=== PATIENT | female | born 1970 | race Caucasian/White ===

== ENCOUNTER 2024-10-18 12:55 | Outpatient (CLI) | payer OTHER, SELFPAY ==
--- NOTE | ~2024-10-18 | MM_ITS ---
EXAMINATION: MM screening bhakti BI w deborah HISTORY: Screening TECHNIQUE: Craniocaudal and mediolateral oblique 3-D tomosynthesis images were obtained and synthetic 2-D images were generated. CAD analysis was submitted and interpreted. COMPARISON: 02/21/2016 BREAST PARENCHYMAL COMPOSITION: Dense: The breasts are heterogeneously dense, which may obscure small masses FINDINGS: There is no evidence of suspicious mass, calcification, or architectural distortion to sugg est malignancy in either breast. There has been no suspicious interval change. IMPRESSION: 1. No mammographic evidence of malignancy. 2. Recommend routine screening mammography in one year. BI-RADS Category 1: Negative Reviewed, dictated and finalized at location B. ANTINE INSPECTOR
--- OUTSIDE RECORDS SUMMARY | 2024-10-18 15:25 | XMS_ITS | Clinical Summary ---
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 Gender Identity Not on file Sexual Orientation Not on file Plan of Treatment Health Maintenance Due Date Last Done Comments Cervical Cancer Screening Pa p Smear (Age 30 to 64) Every 3 Years 1968 Colorectal Cancer Screening Colonoscopy (10 Years) 1968 Annual Physical 12/08/1971 Hepatitis C 1986 DTaP, Tdap and Td Vaccines ( 1 - Tdap) 12/08/1987 Hepatitis B Vaccines (1 of 3 - 19+ 3-dose series) 12/08/1987 Cervical Cancer Screening Pa p with HPV Testing (Age 30 to 64) Every 5 Years 1998 Cervical Cancer Screening with HPV 1998 Mammogram Screening 2008 Zoster Vaccines (1 of 2) 2018 COVID-19 Vaccine (2023-2 5 season) 2024 Influenza Adult (#1) 2024 Meningococcal B Vaccine Aged Out No l onger eligible based on patient's age to complete this topic Meningococcal Vaccine Aged Out No hayley oleksandr eligible based on patient's age to complete this topic Pneumococcal Vaccine: Pediat rics (0 to 5 Years) and At-Risk Patients (6 to 64 Years) Aged Out No longer eligible b ased on patient's age to complete this topic RSV Immunizations Under 20 Months Aged Out No longer eligible based on patient's age to complete this topic
--- OUTSIDE RECORDS SUMMARY | 2024-10-18 15:25 | XMS_ITS | Referral Summary ---
Author Organization [facility] Address [address] [place] [address] Care Team Providers Care Early Morning Babysitter Name Role Phone Salvador Hector MD Primary Care Provider + Christian Miranda MD Unavailable Encounters Date Type Department Care Team Description 10/12/2024 Telephone [facility] Medical Group Primary Care at [facility] [address] [facility] [address] [place] [phone] Salvador Hector MD from Last 3 Months Allergies Active Allergy Reactions Criticality Noted Date Comments Adhesive Tape-Silicones Other (See comments),Rash Medium 04/23/2017 RED/ BLISTERS Hydrocodone-Acetaminophe n Photosensitivity,Unk nown Low 08/09/2011 hallucinations Penicillins Hives,Itching,Rash Medium 05/17/2009 Reaction: Hives, Sulfa (Sulfonamide Antibiotics) Hives,Rash,Itching Reaction: Hives, Skin Rash, , Reaction: Itching, Sulfasalazine Nausea And Vomiting,Rash,Itchin g,Swelling Medium 01/01/2010 Trazodone Other (See comments) High 02/19/2017 Medications ibuprofen (ADVIL,MOTRIN) 800 mg tablet Take 800 mg by mouth every 8 (eight) hours Active ergocalciferol (VITAMIN D) 50,000 unit capsule Take 1 capsule (50,000 Units total) by mouth once a week 12 capsule 06/18/2022 Active nortriptyline (PAMELOR) 25 mg capsuleIndicati ons:Small fiber neuropathy (CMS/HCC),Fibro myalgia TAKE 3 CAPSULES BY MOUTH NIGHTLY. 270 capsule 3 12/16/2023 Active rosuvastatin (CRESTOR) 20 mg tablet TAKE 1 TABLET BY MOUTH EVERY DAY 90 tablet 3 03/17/2024 Active clonazePAM (KlonoPIN) 0.5 mg tablet Take 1 tablet (0.5 mg total) by mouth 2 (two) times a day as needed for anxiety 60 tablet 5 05/07/2024 Active escitalopram (LEXAPRO) 20 mg tablet TAKE 1 TABLET BY MOUTH EVERY DAY 90 tablet 3 05/10/2024 Active Active Problems Problem Noted Date Diagnosed Date Anxiety 06/17/2022 Colon cancer screening 05/04/2020 Overview (05/04/2020): Added automatically from request for surgery [id number] Screen for colon cancer 05/03/2020 Overview (05/03/2020): Added automatically from request for surgery [id number] Pustulosis palmaris et plantaris 06/15/2018 Small fiber neuropathy 11/04/2016 Overview (01/24/2017): Small fiber neuropathy Insomnia 11/04/2016 Overview (01/24/2017): Insomnia Hypotension, postural 11/04/2016 Overview (01/24/2017): Orthostatic hypotension Hyperlipidemia 11/04/2016 Overview (01/24/2017): Hyperlipidemia CFS (chronic fatigue syndrome) 11/04/2016 Overview (01/24/2017): CFS - Chronic fatigue syndrome Fibromyalgia 11/04/2016 Overview (01/24/2017): Fibromyalgia Fibrositis 04/11/2015 Overview (12/05/2016): Fibromyalgia Family history of coronary artery disease 2014 Overview (12/05/2016): Family history of coronary artery disease in father Chronic fatigue syndrome 04/11/2015 Overview (12/06/2016): Chronic fatigue Immunizations Immunization Administration Dates Next Due COVID-19 MRNA (MODERNA) .5 M L (50 MCG) VACCINE (12 YEARS AND UP) 05/30/2023 DTP 12/29/1970, 9,03/01/1969,01/18 Influenza, Quadrivalent, Spl it, Intramuscular 06/17/2022,06/09/2019 Influenza, Quadrivalent, Spl it, Preservative Free, Intradermal 05/24/2016,06/14/2015 Influenza, Quadrivalent, Spl it, Preservative Free, Intramuscular 05/30/2023,06/17/2022,05/03/2020 Influenza, Trivalent, High D ose, Split, Preservative Free, Intramuscular 06/01/2014 Influenza, Trivalent, Preser vative Free, Intramuscular 07/24/2021 Influenza, Trivalent, Split, Preservative Free, Intradermal 06/01/2014 Influenza, Unspecified 05/05/2018,09/29/2017,09/2016 MMR 05/26/1992 Measles 11/14/1978,11/25/1969 Mumps 02/16/1971 OPV 04/22/1979, 4,12/29/1970,08/02,05/07/1969 Pneumococcal Conjugate Pcv20 06/27/2023 Pneumococcal Polysaccharide PPV23 07/02/2008 Rubella 02/17/1970 Td, adsorbed 05/17/1977 Tdap 12/30/2019,07/04/2012 Social History Tobacco Use Types Packs/Day Years Used Date Smoking Tobacco: Some Days Smokeless Tobacco: Never Tobacco Cessation:Ready to Q uit: Not Asked; Counseling Given: Not Answered Comments:3-5 cigarettes a day Alcohol Use Standard Drinks/Week Comments Yes 0 (1 standard drink = 0.6 oz pur e alcohol) rarely AUDIT-C Answer Date Recorded Q1: How often do you have a drink containing alc ohol? 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 Gender Identity Female 05/08/2021 10:15 AM CDT Sexual Orientation Straight 06/19/2019 9: 52 AM CDT Occupation Industry Job Start Date Job End Date disabled Not on file Not on file Not on file Last Filed Vital Signs Vital Sign Reading Time Taken Comments Blood Pressure 100/60 06/27/2023 4:04 PM CDT Pulse 89 06/27/2023 4:04 PM CDT Temperature 36.9 C (98.5 F) 06/14/2020 12:04 PM CDT Respiratory Rate 16 06/17/2022 11:30 AM CDT Oxygen Saturation 98% 06/27/2023 4:04 PM CDT Inhaled Oxygen Concentration - - Weight 58.1 kg (128 lb) 06/27/2023 4:04 PM CDT Height 167.6 cm (5' 6 ) 06/27/2023 4:04 PM CDT Body Mass Index 20.66 06/27/2023 4:04 PM CDT Plan of Treatment Scheduled Procedures Name Priority Associated Diagnoses Date/Ti me COLONOSCOPY Colon cancer screening Procedures Procedure Name Priority Date/Time Associated Diagnosis Comments SCREENING MAMMOGRAM BILATERAL W TEJINDER Schedule Routine, Read Routine (OP Routine) 11/02/2020 1:31 PM STAGE ELECTRICIAN Screening for breast cancer COLONOSCOPY 06/14/2020 12:17 PM CDT IMAGING PAP AND HPV MRNA E6/E7 Routine 11/04/2016 1:39 PM STAGE ELECTRICIAN from Last 3 Months or Most Recently Relevant to Health Maintenance Results * Screening Mammogram Bilateral W Tejinder (11/02/2020 1:31 PM STAGE ELECTRICIAN) Anatomical Region Laterality Modality Breast Bilateral Mammography Narrative 11/03/2020 11:14 AM STAGE ELECTRICIAN Mammogram Technique: Bilateral Digital Breast Tomosynthesis, Bilateral C-view 2D Screening mammogram. Views obtained: bilateral craniocaudal and bilateral mediolateral oblique. Computer Aided Detection was performed. Mammogram Findings: The present examination has been compared to prior imaging studies performed at [facility]. [facility] on 12/28/2010, 04/02/2012 and 04/07/2013. The breasts are heterogeneously dense, which may obscure small masses. There is no suspicious abnormality in either breast. Impression: There is no mammographic evidence of malignancy. Annual screening mammography is recommended. OVERALL FINAL ASSESSMENT: BI-RADS CATEGORY 1: Negative. Procedure Note Flor Yousif MD - 11/03/2020 Mammogram Technique: Bilateral Digital Breast Tomosynthesis, Bilateral C-view 2D Screening mammogram. Views obtained: bilateral craniocaudal and bilateral mediolateral oblique. Computer Aided Detection was performed. Mammogram Findings: The present examination has been compared to prior imaging studies performed at [facility]. [facility] on 12/28/2010, 04/02/2012 and 04/07/2013. The breasts are heterogeneously dense, which may obscure small masses. There is no suspicious abnormality in either breast. Impression: There is no mammographic evidence of malignancy. Annual screening mammography is recommended. OVERALL FINAL ASSESSMENT: BI-RADS CATEGORY 1: Negative. us Salvador Hector MD IMG MAMMO PROCEDURES Fin al Result * COLONOSCOPY (06/14/2020 12:17 PM CDT) Anatomical Region Laterality Modality Other Narrative Procedure Note Paxton Mcdonald MD - 06/14/2020 12:17 PM CDT ENDOSCOPY LAB Patient Name: Comfort Thapa Procedure Date: 06/14/2020 12:17PM Admit Type: Outpatient Room: [facility] 2 Date of : 1970 Instrument Name: [id number] Gender: Female Note Status: Finalized Procedure: Colonoscopy Indications: Colon cancer screening in patient at increased risk: Colorectal cancer in brother at age 42. Paternal Unclehad colon cancer . Cousin with colon cancer under age 50 . This is the patient's first colonoscopy. Providers: Paxton Mcdonald M.D. Referring MD: Salvador Hector M.D. Medicines: Propofol per Anesthesia Complications: No immediate complications. Estimated Blood Loss: Estimated blood loss: none. Procedure: Pre-Anesthesia Assessment: - The risks and benefits of the procedure and thesedation options and risks were discussed with the patient. All questions were answered and informed consent wasobtained. The benefits, risks and alternatives of the procedureand sedation were discussed and informed consent wasobtained. All questions were answered. Please refer to the signed informed consent document in the medical record. Thescope was passed under direct vision. The Colonoscope was introduced through the anus and advanced to the the terminal ileum, with identification of the appendiceal orifice and IC valve. The colonoscopy was somewhat difficult due to a redundant colon. Successfulcompletion of the procedure was aided by applying abdominalpressure. The patient tolerated the procedure well. The qualityof the bowel preparation was excellent. The quality of the bowel preparation was evaluated using the BBPS ([place] Bowel Preparation Scale) with scores of: Right Colon =3 (entire mucosa seen well with no residual staining,small fragments of stool or opaque liquid), Transverse Colon= 3 (entire mucosa seen well with no residual staining,small fragments of stool or opaque liquid) and Left Colon = 3 (entire mucosa seen well with no residual staining,small fragments of stool or opaque liquid). The total BBPSscore equals 9. The quality of the bowel preparation was excellent. The bowel preparation used was polyethylene glycol (PEG). Bowel prep was administered using a split dose. Findings: A 20 mm polyp was found in the distal transverse colon. The polyp was sessile. The polyp was removed with a hot snare. Resection andretrieval were complete. A 5 mm polyp was found in the distal sigmoid colon. The polyp was sessile. The polyp was removed with a hot snare. Resection andretrieval were complete. A 4 mm polyp was found in the distal sigmoid colon. The polyp was sessile. The polyp was removed with a hot snare. Resection andretrieval were complete. The exam was otherwise without abnormality on direct and retroflexion views. Impression: - One 20 mm polyp in the distal transverse colon,removed with a hot snare. Resected and retrieved. - One 5 mm polyp in the distal sigmoid colon, removedwith a hot snare. Resected and retrieved. - One 4 mm polyp in the distal sigmoid colon, removedwith a hot snare. Resected and retrieved. - The examination was otherwise normal on direct and retroflexion views. Recommendation: - Await pathology results. - Repeat colonoscopy in 3 years for surveillance. Attending Participation: I personally performed the entire procedure. Electronically signed by Paxton Mcdonald MD Paxton Mcdonald M.D. 06/14/2020 1:09:25 PM This document was signed electronically. Number of Addenda: 0 Note Initiated On: 06/14/2020 12:17 PM Scope In: Scope Out: us Paxton Mcdonald MD ENDOSCOPY PROCEDURES Final Result * Imaging Pap and HPV mRNA E6/E7 (11/04/2016 1:39 PM STAGE ELECTRICIAN) SOURCE: SEE NOTE [facility] HISTORICAL RESULTS Comment:Cervix, Endocervix CLINICAL INFORMATION: SEE NOTE [facility] HISTORICAL RESULTS Comment:Information not prov ided LMP SEE NOTE [facility] HISTORICAL RESULTS Comment:10/09/16 Previous Pap SEE NOTE [facility] HISTORICAL RESULTS Comment:NONE GIVEN Prev. Bx SEE NOTE [facility] HISTORICAL RESULTS Comment:NONE GIVEN Pap, specimen adequacy SEE NOTE [facility] HISTORICAL RESULTS Comment: Satisfactory for evaluation. Endocervical/transformation zone component present. HPV interp SEE NOTE [facility] HISTORICAL RESULTS Comment:Negative for intraep ithelial lesion or malignancy. Lactobacillus species SEE NOTE [facility] HISTORICAL RESULTS Comment: This Pap test has been evaluated with computer assisted technology. 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 OPEN ACCESS [facility] [id number] Advance Directives For more information, please contact: [phone] * Full Code (Latest Code Status on File) Date Activated Date Inactivated Comments 06/14/2020 11:48 AM 06/14/2020 6:08 PM Care Teams Early Morning Babysitter Relationship Specialty Start Date End Date Salvador Hector MD [address] [address] PCP - General 11/29/16 Christian Miranda MD [address] [address] Referring Physician Neuromuscular Medicine 04/22/18
--- OUTSIDE RECORDS SUMMARY | 2024-10-18 15:25 | XMS_ITS | Clinical Summary ---
Author Organization [facility] Address [address] [place] [address] Care Team Providers Care Eastern Philosophy Professor Name Role Phone Salvador Hector MD Primary Care Provider + Christian Miranda MD Unavailable Allergies Active Allergy Reactions Criticality Noted Date [...] (05/04/2020): Added automatically from request for surgery [id number] Screen for colon cancer 05/03/2020 Overview (05/03/2020): Added automatically from request for surgery [id number] Pustulosis palmaris et plantaris 06/15/2018 Small fiber [...] fatigue syndrome 04/11/2015 Overview (12/06/2016): Chronic fatigue Encounters Date Type Department Care Team Description 10/12/2024 Telephone [facility] Medical [facility] Primary Care at [facility] [address] [facility] [address] [place] [phone] Salvador Hector MD from Last 3 Months Immunizations Immunization Administration Dates Next Due COVID-19 [...] Rubella 02/17/1970 Td, adsorbed 05/17/1977 Tdap 12/30/2019,07/04/2012 Surgical History Surgery Date Site/Laterality Comments HERNIA REPAIR Hernia repair OTHER SURGICAL HISTORY Excision fatty tumor, forehead INGUINAL HERNIA REPAIR Inguinal hernia repair OTHER SURGICAL HISTORY Abnormal Pap - LSIL: Colposcopy - negative biopsies WISDOM TOOTH EXTRACTION 09/01/2000 - 08/31/2001 BUNIONECTOMY 04/30/2017 right foot KNEE ARTHROSCOPY KNEE ARTHROSCOPY W/ LATERAL RELEASE 05/02/2017 - 05/31/2017 Medical History Medical History Date Comments Hyperlipidemia Hyperlipidemia; Comments: RRG 02/23/2016 - Small fiber neuropathy (CMS/HCC) Small fiber neuropathy; Comments: RRG 02/23/2016 - Fibrositis Fibromyalgia; Co mments: RRG 02/23/2016 - Hx Other Medical Abnormal Pap - LSIL; Comments: RED 11/15/2016 - Psoriasis Anxiety Autoimmune disease (CMS/HCC) ([facility]) October 2015 Family History Medical History Relation Name Comments Alcohol abuse Brother 1 Derik Thapa Jr Cancer Brother 2 Tono Thapa Coronary artery disease Father Derik Thapa Wilson nary artery disease; /Coronary artery disease; Heart disease Father Derik Thapa Hyperlipidemia Father Derik Thapa High choleste rol; Hypertension Father Derik Thapa Hypertension; Colon cancer Father's Brother 2 Other Father's Brother 3 Alive and well; Coronary artery disease Father's Brother 4 Coronary artery disease; Diabetes Father's Brother 5 Abdoulaye Thapa Breast cancer Father's Sister Cancer, hansel ast; Cancer Maternal Grandfather Macy Blakely Arthritis Maternal Grandmother Sandy Zora Cancer Maternal Grandmother Sandy Zora Coronary artery disease Maternal Grandmother Sandy carmen Coronary artery disease; Stroke Maternal Grandmother Sandy Zora Uterine cancer Maternal Grandmother Sandy Blakely Canc er, uterine; Vision loss Maternal Grandmother Sandy Blakely Arthritis Mother Rylee Thapa COPD Mother Rylee Thapa Hyperlipidemia Mother Rylee Thapa Alive and wel l; Hypertension Mother Rylee Thapa Hypertension; Vision loss Mother's Brother Mahnaz Blakely Diabetes Other 1 Family history of Diabetes mellitus; Hypertension Other 2 Family history of Hypertension; Cancer Paternal Grandfather Keyla Thapa Heart attack Paternal Grandfather Keyla Thapa Breast cancer Paternal Grandmother Marlene Thapa Cancer , breast; Cancer Paternal Grandmother Marlene Thapa Diabetes Paternal Grandmother Marlene Thapa Relation Name Status Comments Brother 1 Derik Thapa Alive Brother 2 Tono Thapa Alive Father Derik Thapa Alive Father's Brother 1 Alive Father's Brother 2 Alive Father's Brother 3 Father's Brother 4 Father's Brother 5 Abdoulaye Thapa Father's Sister Maternal Grandfather Macy Blakely Maternal Grandmother Sandy Blakely Mother Rylee Thapa Alive Mother's Brother Mahnaz Blakely Other 1 Other 2 Paternal Grandfather Keyla Thapa Paternal Grandmother Marlene Thapa Social History Tobacco Use Types Packs/Day Years [...] on file Legal Sex Female 3:46 AM COILER Gender Identity Female 05/08/2021 10:15 AM CDT Sexual Orientation Straight 06/19/2019 9: 52 AM CDT Occupation Industry Job Start Date Job End Date disabled Not on file Not on file Not on file Obstetrics History Last Filed Vital Signs Vital Sign Reading [...] Diagnoses Date/Ti me COLONOSCOPY Colon cancer screening Health Maintenance Due Date Last Done Comments Hepatitis C Screening 1970 Hepatitis B Screening 1986 Cervical Cancer Screening 11/04/2017 11/04/2016, 01/2017 Zoster Vaccine (1 of 2) 2018 Breast Cancer Screening-Mammogram 11/02/2021 021, 09/27/2016 Colon Cancer Screening-Colonoscopy 06/14/2023 06/14/2020 Covid-19 Vaccine (2023-2 5 season) 2024 05/30/2023, 06/27/2022, 07/25/2021, Additional history exists Influenza Vaccine (#1) 2024 3, 06/17/2022, 06/17/2022, Additional history exists Depression Screening 06/27/2024 06/27/2023, 06/17/2022, 01/14/2018 Regular Well Visit/Exam 18-64 06/27/2024, 06/17/2022, 05/03/2020, Additional history exists DTaP/Tdap/Td Vaccine (8 - Td or Tdap) 12/29/2029 12/30/2019, 07/04/2012, 05/17/1977, Additional history exists Colon Cancer Screening-CT Colonography Discontinued 06/14/2020 Colon Cancer Screening-DNA Stool Discontinued 06/14/20 20 Colon Cancer Screening-FIT Discontinued 06/14/2020 Colon Cancer Screening-Sigmoidoscopy Discontinued 06/14/2020 Pneumococcal vaccine <65 Completed 06/27/2023, 09/2007 Procedures Procedure Name Priority Date/Time Associated Diagnosis Comments SCREENING MAMMOGRAM BILATERAL W TEJINDER Schedule Routine, Read Routine (OP Routine) 11/02/2020 1:31 PM COILER Screening for breast cancer COLONOSCOPY 06/14/2020 12:17 PM CDT IMAGING PAP AND HPV MRNA E6/E7 Routine 11/04/2016 1:39 PM COILER from Last 3 Months or Most Recently Relevant to Health Maintenance Results * Screening Mammogram Bilateral W Tejinder (11/02/2020 1:31 PM COILER) Anatomical Region Laterality Modality Breast Bilateral Mammography Narrative 11/03/2020 11:14 AM COILER Mammogram Technique: Bilateral Digital Breast Tomosynthesis, Bilateral C-view 2D Screening mammogram. Views obtained: bilateral craniocaudal and bilateral mediolateral oblique. Computer Aided Detection was performed. Mammogram Findings: The present examination has been compared to prior imaging studies performed at [facility]. [facility] on 12/28/2010, 04/02/2012 and 04/07/2013. [...] compared to prior imaging studies performed at [facility]. [facility] on 12/28/2010, 04/02/2012 and 04/07/2013. [...] Date: 06/14/2020 12:17PM Admit Type: Outpatient Room: [facility] 2 Date of : 1970 Instrument Name: [id number] Gender: Female Note Status: Finalized Procedure: Colonoscopy [...] bowel preparation was evaluated using the BBPS ([place] Bowel Preparation Scale) with scores of: Right [...] and HPV mRNA E6/E7 (11/04/2016 1:39 PM COILER) SOURCE: SEE NOTE [facility] HISTORICAL RESULTS Comment:Cervix, [...] has been evaluated with computer assisted technology. 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 SEE NOTE [facility] HISTORICAL RESULTS Comment: ABC, CT(ASCP) CT screening location: [place] [address] [place] [address] Test performed at [facility] [address] [place] [address] Director: CONCHA SELBY MD 11/04/2016 1:39 PM COILER June Loaiza MD LAB PATHOLOGY ORDERAB LES Final Result [facility] HISTORICAL RESULTS from Last 3 Months or Most Recently Relevant to Health Maintenance Insurance [employer] [facility] [id number] [email or web address] OPEN ACCESS [facility] [id number] Advance Directives For more information, please contact: [phone] * Full Code (Latest Code Status on File) Date Activated Date Inactivated Comments 06/14/2020 11:48 AM 06/14/2020 6:08 PM Care Teams Eastern Philosophy Professor Relationship Specialty Start Date End Date Salvador Hector MD [address] [facility] [address], [place] [address] PCP - General 11/29/16 Christian Miranda MD [address] [address] Referring Physician Neuromuscular Medicine 04/22/18
--- OUTSIDE RECORDS SUMMARY | 2024-10-18 15:25 | XMS_ITS | Clinical Summary ---
Author Organization [facility] Address [address] [place] [address] Phone Care Team Providers Care Mixing Plant Dumper Name Role Phone Salvador Hector MD Primary Care Provider Un available Allergies Active Allergy Reactions Criticality Noted Date Comments Adhesive Tape Rash,Other (see Comments) 017 RED/ BLISTERS Penicillins Hives,Rash,Itching 04/23/2017 Sulfa Antibiotics Rash,Itching 04/23/2017 Medications atorvastatin (LIPITOR) 40 MG Tablet Take 40 mg by mouth nightly. Active amitriptyline (ELAVIL) 75 MG Tablet Take 75 mg by mouth nightly. Active clonazePAM (KLONOPIN) 0.5 MG Tablet Take 0.5 mg by mouth 3 times daily. TAKES AT BEDTIME AND 2 X THROUGH THE DAY PRN Active DULoxetine (CYMBALTA) [address] Particles Take 40 mg by mouth 2 times daily. Active ibuprofen (MOTRIN) 800 MG Tablet Take 800 mg by mouth every 8 hours. Active lidocaine (LIDODERM) 5 % Patch 1 Patch by Transdermal route daily as needed. Active tiZANidine (ZANAFLEX) 4 MG Tablet Take 4 mg by mouth 3 times daily as needed. Active Cholecalciferol (VITAMIN D3 PO) Take 50,000 Units by mouth once a week. FRIDAY Active Loteprednol Etabonate (LOTEMAX OP) Place 1-2 Drops in affected eye(s) daily as needed. KAREN EYES Active CycloSPORINE (RESTASIS OP) Place 1-2 Drops in affected eye(s) 2 times daily as needed. OU Active Crisaborole 2 % Ointment by Apply externally route. Apply bid Active Clobetasol Propionate (OLUX) 0.05 % Foam Apply 2 times daily. use thin film on affected area on hands and feet Active acetaminophen (TYLENOL) 500 MG Tablet Take 1,000 mg by mouth every 6 hours as needed for Pain. Active HYDROcodone-oliva taminophen (NORCO) 5-325 MG Tablet Take 1-2 Tabs by mouth every 4 hours as needed for Pain. 30 Tab 7 Active Active Problems Problem Noted Date Diagnosed Date Bunion, right foot 04/30/2017 Family History Medical History Relation Name Comments Heart Surgery Father Hypertension Mother Osteoarthritis Mother Relation Name Status Comments Father Alive Mother Alive Social History Tobacco Use Types Packs/Day Years Used Date Smoking Tobacco: Light Smoker Cigarettes Alcohol Use Standard Drinks/Week Comments No 0 (1 standard drink = 0.6 oz pur e alcohol) Comments Unknown Sex and Gender Information Value Date Recorded Sex Assigned at Not on file Legal Sex Female 1:41 PM CDT Gender Identity Not on file Sexual Orientation Not on file Last Filed Vital Signs Vital Sign Reading Time Taken Comments Blood Pressure 100/70 04/30/2017 10:15 AM CDT Pulse 85 04/30/2017 10:15 AM CDT Temperature 36.4 C (97.5 F) 04/30/2017 10:15 AM CDT Respiratory Rate 16 04/30/2017 10:15 AM CDT Oxygen Saturation 95% 04/30/2017 10:15 AM CDT Inhaled Oxygen Concentration - - Weight 69.9 kg (154 lb) 04/23/2017 3:00 PM CDT Height 167.6 cm (5' 6 ) 04/23/2017 3:00 PM CDT Body Mass Index 24.86 04/23/2017 3:00 PM CDT Plan of Treatment Health Maintenance Due Date Last Done Comments Hepatitis C Virus (HCV) Screening 1968 TdaP Immunization 1968 Hepatitis B Immunization (1 of 3 - 19+ 3-dose series) 12/08/1987 Pap Smear 1989 Cervical Cancer Screening (CCS) 1998 HPV/Cotest 1998 Colonoscopy 2013 Colorectal Cancer Screening 2013 Cologuard 2018 Immunochemical Fecal Occult Blood 2018 Mammogram 2018 Pneumococcal Immunization (5 0+ years) (1 of 1 - PCV) 2018 Zoster Immunization (1 of 2) 2018 Influenza Immunization (#1) 2024 SARS-COV-2 Immunization (1 - 2023-25 season) 2024 Respiratory Syncytial Virus (RSV) Immunization (Adult) (1 - 1-dose 75+ series) 12/08/2043 Meningococcal Immunization (ACWY) Aged Out No longer eligible based on patient's age to complete this topic Pneumococcal Immunization Combined Aged Out No longer eligible based on patient's age to complete this topic Rotavirus Immunization Aged Out No lo nger eligible based on patient's age to complete this topic Insurance Care Teams Mixing Plant Dumper Relationship Specialty Start Date End Date Salvador Hector MD PCP - General Internal Medicine 04/24/17
--- OUTSIDE RECORDS SUMMARY | 2024-10-18 15:25 | XMS_ITS | Clinical Summary ---
Author Organization [facility] [employer] Address [address] [place] [address] Care Team Providers Care Graphics Editor Name Role Phone Salvador Hector MD Primary Care Provider [phone] Segun Mccracken MD Unavailable Fer Jaquez MD Unavailable [phone] Source Comments [facility],non-owned Affiliates and Associated Physician Practices is amultiple site organization consisting of ambulatory clinics and hospital sitesin [place], [place], [place] and [place]. This disclosure is being madepursuant to the Care Everywhere program and may not contain all information available regarding this patient. Last updated 18.[facility] Allergies Active Allergy Reactions Criticality Noted Date Comments Adhesive Sensitivity Rash Medium 04/23/2017 RED/ BLISTERS Propoxyphene N-Apap 09/28/2009 Penicillins Urticaria,Itching,Ra sh Medium 05/17/2009 Penicillin G Urticaria,Rash,Swell ing Medium 07/20/2012 Sulfa Drugs Itching,Swelling,Josh h Medium 01/01/2010 Sulfasalazine Itching,Nausea and/or Vomiting,Rash,Swelli ng Medium 01/01/2010 Trazodone Other High 02/19/2017 Hydrocodone-Acetaminophen Photosensitivi ty,Oth er Low 08/09/2011 hallucinations Medications * Be aware that medications may not be up to date on this document. Alwaysverify current medications with the patient. Medication Sig Dispensed Refills Start Date End Date Status atorvastatin (LIPITOR) 40 MG tablet Take 1 Tab by mouth at bedtime 30 Tab 5 07/26/2015 Active clonazePAM (KLONOPIN) 0.5 MG tabletIndications:A nxiety state 1 tablet 2 times daily as needed for Anxiety 60 tablet 5 07/03/2017 Active DULoxetine (CYMBALTA) 20 MG capsule TAKE 2 CAPSULES( 40 MG) BY MOUTH TWICE DAILY 120 capsule 5 09/03/2017 Active Calcitriol 3 MCG/GMIndications:P ustulosis palmaris et plantaris Apply to hands and feet BID, 30 DS 100 g 1 05/15/2018 Active fluocinonide (LIDEX) 0.05 % ointmentIndications :Pustulosis palmaris et plantaris Apply to feet and hands twice daily. 30 days supply. 60 g 3 09/04/2018 Active meloxicam (MOBIC) 15 MG tablet Take 1 tablet by mouth once daily 30 tablet 2 09/23/2018 Active amitriptyline (ELAVIL) 25 MG tablet Take by mouth at bedtime 09/18/2018 Active folic acid (FOLVITE) 1 MG tabletIndications:P ustulosis palmaris et plantaris Take 1 tablet daily 30 tablet 11 10/09/2018 Active methotrexate 2.5 MG tablet TITRATE UP TO 25MG (10 TABLETS) EVERY 7 DAYS DIRECTED IN CLINIC 40 tablet 11/13/2018 Active nortriptyline (PAMELOR) 25 MG capsule TAKE 1 CAPSULE BY MOUTH EVERYDAY AT BEDTIME 30 capsule 12/24/2018 Active Active Problems Problem Noted Date Diagnosed Date Other viral warts 09/20/2018 Keratosis pilaris 09/20/2018 Encounter for long-term current use of high risk medication 09/20/2018 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 (AF LURIA, FLUZONE TRIVALENT; 6MO+) (IIV3) 07/04/2012,06/13/2011 FLU VACCINE TRI IIV3 SPLIT P F IM (FLUVIRIN) 08/04/2013 INFLUENZA VACCINE 05/21/2018, 0,07/14/2009,2008 Influenza Pf Intradermal (ADULT) 06/01/2014 PNEUMOCOCCAL PPSV23 07/02/2008 TDAP (7yrs+) 07/04/2012 Family History Medical History Relation Name Comments Cancer - Skin, Non Melanoma Maternal Grandfather Cancer - Skin, Non Melanoma Maternal Grandmother Cancer - Breast Paternal Aunt Asthma Neg Hx CVA Neg Hx Cancer - Other Neg Hx Cancer - Skin, Melanoma Neg Hx Eczema Neg Hx Hemophilia Neg Hx Psoriasis Neg Hx Relation Name Status Comments Father Alive Maternal Grandfather Maternal Grandmother Mother Alive Paternal Aunt Alive Social History Tobacco Use Types Packs/Day Years Used Date Smoking Tobacco: Some Days Cigarettes 0.5 11 Started: 03/16/1998; Last attempted to quit: 03/16/2009 Smokeless Tobacco: Never Tobacco Cessation:Counseling Given: No Alcohol Use Standard Drinks/Week Comments No 0 (1 standard drink = 0.6 oz pur e alcohol) Sex and Gender Information Value Date Recorded Sex Assigned at Not on file Gender Identity Female 08/05/2017 9:52 AM IRRADIATED FUEL HANDLER Sexual Orientation Not on file Last Filed Vital Signs Vital Sign Reading Time Taken Comments Blood Pressure 100/70 09/23/2018 10:06 AM IRRADIATED FUEL HANDLER Pulse 97 09/23/2018 10:06 AM IRRADIATED FUEL HANDLER Temperature 36.5 C (97.7 F) 07/01/2011 12:39 PM CDT Respiratory Rate 16 09/23/2018 10:06 AM IRRADIATED FUEL HANDLER Oxygen Saturation 98% 09/23/2018 10:06 AM IRRADIATED FUEL HANDLER Inhaled Oxygen Concentration - - Weight 76.7 kg (169 lb) 09/23/2018 10:06 AM IRRADIATED FUEL HANDLER Height 167.6 cm (5' 6 ) 09/23/2018 10:06 AM IRRADIATED FUEL HANDLER Body Mass Index 27.28 09/23/2018 10:06 AM IRRADIATED FUEL HANDLER Plan of Treatment Health Maintenance Due Date Last Done Comments COLOGUARD (AGES 45-75) - COLON CA SCREENING 1968 COLON MONITORING 1968 COLONOSCOPY - COLON CA SCREENING 1968 CT COLONOGRAPHY - COLON CA SCREENING 1968 Colorectal Cancer Screening 1968 FIT - COLON CA SCREENING 1968 FLEX SIG - COLON CA SCREENING 1968 HEPATITIS B VACCINE (1 of 3 - 19+ 3-dose series) 12/08/1987 PNEUMOCOCCAL VACCINE 50+ (2 of 2 - PCV) 07/02/2009 07/02/2008 PNEUMOCOCCAL VACCINE (2 of 2 - PCV) 07/02/2009 07/02/2008 PAP SMEAR 06/10/2015 06/10/2012, 06/05/2011 MAMMOGRAM 02/20/2018 02/21/2016, 03/2013, 04/02/2012, Additional history exists ZOSTER VACCINE (1 of 2) 2018 SCREENING FOR DIABETES 09/09/2021 9, 05/05/2014, 04/07/2013, Additional history exists DTAP/TDAP/TD VACCINES (2 - Td or Tdap) 07/04/2022 07/04/2012 COVID-19 VACCINE ( season) 2024 INFLUENZA VACCINE (#1) 2024 8, 05/05/2018, 09/29/2017, Additional history exists DEPRESSION SCREENING 09/01/2024 HIV SCREENING Completed 04/01/2012, 12/28/2010 HEPATITIS C SCREENING Completed 09/09/2018 HIB VACCINE Aged Out No longer eligi ble based on patient's age to complete this topic HPV VACCINE Aged Out No longer eligi ble based on patient's age to complete this topic MENINGOCOCCAL (Group B) VACCINE Aged Out No longer eligible based on patient's age to complete this topic MENINGOCOCCAL VACCINE Aged Out No hayley oleksandr eligible based on patient's age to complete this topic Goals Goal Patient Goal Type Associated Problems Recent Progress Patient-Stated? Author Quit smoking / using tobacco Lifestyle On track( 015 1:34 PM CDT) No Radha Munroe MA Procedures Procedure Name Priority Date/Time Associated Diagnosis Comments COMPREHENSIVE METABOLIC PANEL 09/09/2018 2:31 PM IRRADIATED FUEL HANDLER HEPATITIS C AB W/RFLX TO HCV RNA QN PCR Routine 09/09/2018 2:31 PM IRRADIATED FUEL HANDLER Pustulosis palmaris et plantaris Encounter for long-term current use of high risk medication MAMMOGRAPHY ORDER Routine 02/21/2016 PAP IG LB RFLX HPV HR ASCU RFLX 16,18 Routine 06/10/2012 1:03 PM CDT Routine gynecological examination HIV-1 HIV-2 ANTIBODY Today 04/01/2012 4:52 PM CDT from Last 3 Months or Most Recently Relevant to Health Maintenance Results * HEPATITIS C AB W/RFLX TO HCV RNA QN PCR (09/09/2018 2:31 PM IRRADIATED FUEL HANDLER) Pathologist [facility] Hepatitis C Antibody NON-REACTI VE NON-REACT TIN [facility] Signal to Cut-Off 0.01 <1.00 [facility] Comment: REPORT COMMENT: FASTING:NO Test Performed at: [facility] [id number] [place] [address] GREG JACK DO,MPH Blood BLOOD SPECIMEN / Unknown 09/09/2018 2:31 PM IRRADIATED FUEL HANDLER 09/09/2018 2:32 PM IRRADIATED FUEL HANDLER Mark Vogt MD LAB - CHEMISTRY JALEN REGALADO [facility] Organization Address City/State/ZIP Co de Phone Number [facility] [address] [place] [address] * COMPREHENSIVE METABOLIC PANEL (09/09/2018 2:31 PM IRRADIATED FUEL HANDLER) Pathologist [facility] Glucose 73 65 - 139 mg/dL [facility] Comment: Non-fasting reference interval BUN 13 7 - 25 mg/dL [facility] Creatinine 0.85 0.50 - 1.10 mg/dL [facility] eGFR by MDRD 80 > OR = 60 mL/min/1. 73m2 [facility] eGFR by MDRD 93 > OR = 60 mL/min/1. 73m2 [facility] BUN/Creatinine Ratio NOT APPLICABLE 6 - 22 (calc) [facility] Sodium 140 135 - 146 mmol/L [facility] Potassium 4.3 3.5 - 5.3 mmol/L [facility] Chloride 102 98 - 110 mmol/L [facility] CO2 31 20 - 32 mmol/L [facility] Calcium 9.2 8.6 - 10.2 mg/dL [facility] Protein Total 6.7 6.1 - 8.1 g/dL [facility] Albumin 4.4 3.6 - 5.1 g/dL [facility] Globulin Total 2.3 1.9 - 3.7 g/dL (calc) [facility] Albumin/Globuli n Ratio 1.9 1.0 - 2.5 (calc) [facility] Bilirubin Total 0.3 0.2 - 1.2 mg/dL [facility] Alkaline Phosphatase 95 33 - 115 U/L [facility] AST 13 10 - 35 U/L [facility] ALT 12 6 - 29 U/L [facility] Comment: Test Performed at: [facility] [id number] [place] [address] GREG JACK DO,MPH 09/09/2018 2:31 PM IRRADIATED FUEL HANDLER 09/09/2018 2:32 PM IRRADIATED FUEL HANDLER Mark Vogt MD LAB - CHEMISTRY JALEN REGALADO [facility] Organization Address City/State/ZIP Co de Phone Number [facility] [address] [place] [address] * MAMMOGRAPHY ORDER (02/21/2016) Anatomical Region Laterality Modality Other Salvador Hector MD MAMMO ORDERABLES * (ABNORMAL) PAP IG RFLX HPV ASCU RFLX 16/18 (PO REF LAB) (06/10/2012 1:03 PM CDT) Diagnosis (A) [facility] INSURANCE BILL Comment: EPITHELIAL CELL ABNORMALITY. LOW-GRADE SQUAMOUS INTRAEPITHELIAL LESION (LGSIL); MILD DYSPLASIA IS PRESENT. Recommendation (A) [facility] INSURANCE BILL Comment:Suggest follow up as clinically appropriate. Specimen Adequacy [facility] INSURANCE BILL Comment: Satisfactory for evaluation. Endocervical and/or squamous metaplastic cells (endocervical component) are present. Clinician Provided ICD9 [facility] INSURANCE BILL Comment: V72.31 ; Routine gynecological examination 626.4 ; Irregular menstrual cycle Performed by [facility] INSURANCE BILL Comment:Adamaris Martínez, Cyto technologist (ASCP) Electronically Signed by [facility] INSURANCE BILL Comment:Sandy Baltazar MD, Pathologist Comment . [facility] INSURANCE BILL Pathologist Provided ICD9 [facility] INSURANCE BILL Comment:795.03 Note [facility] INSURANCE BILL Comment: The Pap smear is a screening test designed to aid in the detection of premalignant and malignant conditions of the uterine cervix. It is not a diagnostic procedure and should not be used as the sole means of detecting cervical cancer. Both false-positive and false-negative reports do occur. . IGLBP CPT Code Automation [facility] INSURANCE BILL Comment: This liquid based ThinPrep(R) pap test was screened with the use of an image guided system. Note [facility] INSURANCE BILL Comment: The HPV DNA reflex criteria were not met with this specimen result therefore, no HPV testing was performed. . MICROSCOPIC CYTOLOGIC EXAMINATION OF SMEAR OF SPECIMEN FROM FEMALE GENITAL TRACT PREPARED USING PAPANICOLAOU TECHNIQUE / Unknown 06/10/2012 1:03 PM CDT 06/11/2012 7:08 AM CDT Narrative [facility] INSURANCE BILL - 06/15/2012 8:10 PM CDT No. of containers..01 CYTYC Thin Prep Vial Resulting Agency Comment [facility] [address] [facility] [id number] Mark Ayoub MD LAB - PATHOLOGY/CYTO LOGY ORDERABLES [facility] INSURANCE BILL * HIV-1 HIV-2 ANTIBODY (04/01/2012 4:52 PM CDT) HIV-1/HIV-2 Nonreactive Nonreactiv [facility] BLOOD SPECIMEN / Unknown 04/01/2012 4:52 PM CDT 04/01/2012 4:52 PM CDT Salvador Hector MD LAB - CHEMISTRY O RDERABLES [facility] [address] [place] [address] from Last 3 Months or Most Recently Relevant to Health Maintenance Care Teams Graphics Editor Relationship Specialty Start Date End Date Salvador Hector MD [address] [facility] [address], [place] [id number] PCP - General 05/17/09 Segun Mccracken MD [address] [employer] [facility] [address] [place] [address] Infectious Disease 11/24/13 Fer Jaquez MD [address] [facility] [address] [place] [address] Cardiology 01/12/16
--- OUTSIDE RECORDS SUMMARY | 2024-10-18 15:26 | XMS_ITS | Patient Health Summary ---
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 This disclosure is being madepursuant to the Care Everywhere program and may not contain all information available regarding this patient. Last updated 18.[facility] Allergies * Adhesive Sensitivity(Rash) -Medium Criticality * Propoxyphene N-Apap * Penicillins(Urticaria,Itching,Rash) -Medium Criticality * Penicillin G(Urticaria,Rash,Swelling) -Medium Criticality * Sulfa Drugs(Itching,Swelling,Rash) -Medium Criticality * Sulfasalazine(Itching,Nausea and/or Vomiting,Rash,Swelling) -Medium Criticality * Trazodone(Other) -High Criticality * Hydrocodone-Acetaminophen(Photosensitivity,Other) -Low Criticality Medications * Be aware that medications may not be up to date on this document. Alwaysverify current medications with the patient. * atorvastatin (LIPITOR) 40 MG tablet(Started 07/26/2015) Take 1 Tab by mouth at bedtime 5 refills left * clonazePAM (KLONOPIN) 0.5 MG tablet(Started 07/03/2017) 1 tablet 2 times daily as needed for Anxiety 5 refills remaining * DULoxetine (CYMBALTA) 20 MG capsule(Started 09/03/2017) TAKE 2 CAPSULES( 40 MG) BY MOUTH TWICE DAILY 5 refills remaining * Calcitriol 3 MCG/GM(Started 05/15/2018) Apply to hands and feet BID, 30 DS 1 refill remaining * fluocinonide (LIDEX) 0.05 % ointment(Started 09/04/2018) Apply to feet and hands twice daily. 30 days supply. 3 refills remaining * meloxicam (MOBIC) 15 MG tablet(Started 09/23/2018) Take 1 tablet by mouth once daily 2 refills remaining * amitriptyline (ELAVIL) 25 MG tablet(Started 09/18/2018) Take by mouth at bedtime * folic acid (FOLVITE) 1 MG tablet(Started 10/09/2018) Take 1 tablet daily 11 refills remaining * methotrexate 2.5 MG tablet(Started 11/13/2018) TITRATE UP TO 25MG (10 TABLETS) EVERY 7 DAYS DIRECTED IN CLINIC * nortriptyline (PAMELOR) 25 MG capsule(Started 12/24/2018) TAKE 1 CAPSULE BY MOUTH EVERYDAY AT BEDTIME Active Problems Problem Noted Date Diagnosed Date Other viral warts 09/20/2018 Keratosis pilaris 09/20/2018 Encounter for long-term current use of high risk medication 09/20/2018 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 Sexual Orientation Not on file Last Filed Vital Signs Vital Sign Reading Time Taken Comments Blood Pressure 100/70 09/23/2018 10:06 AM CARTON MACHINE OPERATOR Pulse 97 09/23/2018 10:06 AM CARTON MACHINE OPERATOR Temperature 36.5 C (97.7 F) 07/01/2011 12:39 PM CDT Respiratory Rate 16 09/23/2018 10:06 AM CARTON MACHINE OPERATOR Oxygen Saturation 98% 09/23/2018 10:06 AM CARTON MACHINE OPERATOR Inhaled Oxygen Concentration - - Weight 76.7 kg (169 lb) 09/23/2018 10:06 AM CARTON MACHINE OPERATOR Height 167.6 cm (5' 6 ) 09/23/2018 10:06 AM CARTON MACHINE OPERATOR Body Mass Index 27.28 09/23/2018 10:06 AM CARTON MACHINE OPERATOR Procedures * CBC W AUTO DIFFERENTIAL(Performed 11/25/2018) Performed for Encounter for long-term current use of high risk medication * HEPATIC FUNCTION PANEL(Performed 11/25/2018) Performed for Encounter for long-term current use of high risk medication * MD DESTRUCT BENIGN LESION, 1-14(Performed 10/09/2018) Performed for Other viral warts * EARLY SJOGREN'S SYNDROME PROFILE(Performed 10/09/2018) Performed for Polyarthritis * COMPLEMENT C3 C4 PANEL(Performed 10/09/2018) Performed for Idiopathic small fiber sensory neuropathy, Polyarthritis * NATALYA PANEL COMPREHENSIVE(Performed 10/09/2018) Performed for Idiopathic small fiber sensory neuropathy, Polyarthritis, Sicca syndrome (HCC) * ALDOLASE(Performed 10/09/2018) Performed for Polyarthritis * CK BLOOD(Performed 10/09/2018) Performed for Polyarthritis * ERYTHROCYTE SEDIMENTATION RATE(Performed 10/09/2018) Performed for Polyarthritis * C-REACTIVE PROTEIN(Performed 10/09/2018) Performed for Polyarthritis * HLA TYPING B27(Performed 10/09/2018) Performed for Polyarthritis * HEPATIC FUNCTION PANEL(Performed 10/09/2018) Performed for Encounter for long-term current use of high risk medication * CBC W AUTO DIFFERENTIAL(Performed 10/09/2018) Performed for Encounter for long-term current use of high risk medication * HEPATITIS B SURFACE ANTIBODY(Performed 09/09/2018) * HEPATITIS B SURFACE ANTIGEN W RFLX CONFIRMATION(Performed 09/09/2018) * CBC W AUTO DIFFERENTIAL(Performed 09/09/2018) * COMPREHENSIVE METABOLIC PANEL(Performed 09/09/2018) * HEPATITIS B CORE ANTIBODY TOTAL(Performed 09/09/2018) Performed for Pustulosis palmaris et plantaris, Encounter for long-term current use of high risk medication * HEPATITIS C AB W/RFLX TO HCV RNA QN PCR(Performed 09/09/2018) Performed for Pustulosis palmaris et plantaris, Encounter for long-term current use of high risk medication * MD DESTRUCT BENIGN LESION, 1-14(Performed 09/04/2018) Performed for Other viral warts * ERYTHROCYTE SEDIMENTATION RATE(Performed 04/01/2017) Performed for Undifferentiated connective tissue disease (HCC) * C-REACTIVE PROTEIN(Performed 04/01/2017) Performed for Undifferentiated connective tissue disease (HCC) * AMB REFERRAL TO RHEUMATOLOGY(Performed 10/02/2016) Performed for Fibromyalgia * MRI CERVICAL SPINE WO CONTRAST(Performed 09/27/2016) Performed for Cervical radiculitis * MRI BRAIN WO CONTRAST(Performed 09/27/2016) Performed for Polyneuropathy * MAMMOGRAPHY ORDER(Performed 02/21/2016) * BORRELIA RELAPSING FEVER PANEL(Performed 02/08/2016) Performed for Bug bite * LYME DISEASE AB IGM + TOTAL RFLX LINE BLOT(Performed 02/08/2016) Performed for Bug bite * BARTONELLA ANTIBODY PANEL(Performed 02/08/2016) Performed for Bug bite * LIPID PROFILE(Performed 02/01/2016) Performed for Dyslipidemia * PATHOLOGY/CYTOLOGY REPORT ORDER(Performed 12/15/2015) * NERVE CONDUCTION TEST(Performed 11/28/2015) Performed for Small fiber polyneuropathy * NM MYOCARD PERF REST STRESS(Performed 10/19/2015) Performed for Chest pain, unspecified chest pain type * STRESS TEST TREADMILL (NO IMAGING)(Performed 10/17/2015) Performed for Dyslipidemia * ECHOCARDIOGRAM STRESS(Performed 10/17/2015) Performed for Dyslipidemia * STRESS TEST TREADMILL (NO IMAGING)(Performed 10/12/2015) Performed for Chest pain, unspecified chest pain type * VAS ARTERIAL ANKLE ARM INDEX(Performed 10/12/2015) Performed for Numbness * LAB RESULTS ORDER(Performed 05/01/2015) * XR TOE RIGHT 2VW OR MORE(Performed 07/23/2014) * HIV-1 ANTIBODY(Performed 06/15/2014) * VITAMIN D 25-HYDROXY(Performed 05/05/2014) Performed for Screening for unspecified condition * LIPID PROFILE W LDL/HDL RATIO(Performed 05/05/2014) Performed for Screening for unspecified condition * THYROID PANEL W TSH (TSH,T4,T3 UPTAKE,FTI)(Performed 05/05/2014) Performed for Chronic fatigue fibromyalgia syndrome * COMPREHENSIVE METABOLIC PANEL(Performed 05/05/2014) Performed for Chronic fatigue fibromyalgia syndrome * CBC W AUTO DIFFERENTIAL(Performed 05/05/2014) Performed for Chronic fatigue fibromyalgia syndrome * MAMMO BILAT SCREENING(Performed 04/07/2013) Performed for Other Screening Mammogram * VITAMIN B12(Performed 04/07/2013) Performed for Chronic fatigue fibromyalgia syndrome * CELIAC DISEASE COMPREHENSIVE(Performed 04/07/2013) Performed for Chronic fatigue fibromyalgia syndrome * COMPREHENSIVE METABOLIC PANEL(Performed 04/07/2013) Performed for Chronic fatigue fibromyalgia syndrome * CBC W AUTO DIFFERENTIAL(Performed 04/07/2013) Performed for Chronic fatigue fibromyalgia syndrome * ANTI-MULLERIAN HORMONE(Performed 01/11/2013) * LAB HISTORICAL RESULTS-ONBASE(Performed 12/29/2012) * FSH + LH PANEL(Performed 08/18/2012) * FL HYSTEROSALPINGOGRAM(Performed 07/31/2012) Performed for Fertility testing * HCG URINE QUALITATIVE(Performed 07/31/2012) * LAB HISTORICAL RESULTS-ONBASE(Performed 07/31/2012) * LAB HISTORICAL RESULTS-ONBASE(Performed 07/31/2012) * FSH + LH PANEL(Performed 07/25/2012) * THYROID PANEL W TSH (TSH,T4,T3 UPTAKE,FTI)(Performed 07/04/2012) Performed for Chronic fatigue fibromyalgia syndrome * COMPREHENSIVE METABOLIC PANEL(Performed 07/04/2012) Performed for Chronic fatigue fibromyalgia syndrome * CBC W AUTO DIFFERENTIAL(Performed 07/04/2012) Performed for Chronic fatigue fibromyalgia syndrome * VITAMIN D 25-HYDROXY(Performed 07/04/2012) Performed for Vitamin d deficiency * GROSS + MICRO EXAM(Performed 07/03/2012) * GROSS + MICRO EXAM(Performed 07/03/2012) * PROGESTERONE(Performed 06/17/2012) Performed for Irregular periods * PAP IG LB RFLX HPV HR ASCU RFLX 16,18(Performed 06/10/2012) Performed for Routine gynecological examination * CARDIAC HOLTER MONITOR ORDER(Performed 04/23/2012) * HOLTER MONITOR(Performed 04/16/2012) Performed for ASD (atrial septal defect) ([facility]) * MAMMO BILAT SCREENING(Performed 04/02/2012) Performed for Other screening mammogram * HIV-1 HIV-2 ANTIBODY(Performed 04/01/2012) * CORTISOL BLOOD(Performed 04/01/2012) * HOLTER MONITOR(Performed 04/01/2012) Performed for Syncope, Chronic fatigue fibromyalgia syndrome * VITAMIN D 25-HYDROXY(Performed 03/28/2012) * LAB MISC TEST(Performed 03/28/2012) * THYROID PANEL W TSH (TSH,T4,T3 UPTAKE,FTI)(Performed 07/15/2011) Performed for Orthostatic hypotension * COMPREHENSIVE METABOLIC PANEL(Performed 07/15/2011) Performed for Orthostatic hypotension * CBC W AUTO DIFFERENTIAL(Performed 07/15/2011) Performed for Orthostatic hypotension * CORTISOL BLOOD(Performed 07/01/2011) Performed for Myalgia and myositis, unspecified, Chronic fatigue fibromyalgia syndrome * CORTISOL BLOOD(Performed 07/01/2011) Performed for Myalgia and myositis, unspecified, Chronic fatigue fibromyalgia syndrome * CARDIAC ECHOCARDIOGRAM COMPLETE ORDER(Performed 06/13/2011) * CARDIAC ECHOCARDIOGRAM COMPLETE ORDER(Performed 06/13/2011) * CARDIAC STRESS TEST ORDER(Performed 06/13/2011) * PAP IG LB RFLX HPV HR ASCU RFLX 16,18(Performed 06/05/2011) Performed for Routine gynecological examination * MAMMO BILAT SCREENING(Performed 12/28/2010) Performed for Other screening mammogram * BLOOD TYPE ABO+ RH PANEL(Performed 12/28/2010) * HIV-1 HIV-2 ANTIBODY(Performed 12/28/2010) * C-REACTIVE PROTEIN(Performed 12/28/2010) * NATALYA BLOOD SCREEN W/REFLEX TITER(Performed 12/28/2010) * CD4 (ABSOLUTE T4)(Performed 12/28/2010) * ERYTHROCYTE SEDIMENTATION RATE(Performed 12/28/2010) * COMPREHENSIVE METABOLIC PANEL(Performed 10/31/2010) * T3 FREE(Performed 10/31/2010) * TSH(Performed 10/31/2010) * NATALYA BLOOD SCREEN W/REFLEX TITER(Performed 10/31/2010) * VITAMIN D 25-HYDROXY(Performed 10/31/2010) * CBC W AUTO DIFFERENTIAL(Performed 10/31/2010) * T4 TOTAL(Performed 10/31/2010) * LIPID PROFILE(Performed 10/31/2010) * MICROALBUMIN URINE RANDOM(Performed 10/31/2010) * URINALYSIS REFLEX TO MICROSCOPIC NO CULTURE(Performed 10/31/2010) * ECHOCARDIOGRAM 2D WITH DOPPLER(Performed 10/31/2010) Performed for Ostium secundum type atrial septal defect (HCC) * XR WRIST LEFT 3VW OR MORE(Performed 04/13/2010) Performed for Left Wrist Pain * C-REACTIVE PROTEIN(Performed 03/31/2010) * GROSS + MICRO EXAM(Performed 03/20/2007) * GROSS + MICRO EXAM(Performed 07/31/2000) Results * CBC WITH DIFFERENTIAL (11/25/2018 2:27 PM CDT) Only the most recent of8 resultswithin the time period is included. White Blood Cell Count 4.8 3.8 - 10.8 Thousand/u L [facility] RBC 4.45 3.80 - 5.10 Million/uL [facility] Hemoglobin 14.7 11.7 - 15.5 g/dL [facility] Hematocrit 41.7 35.0 - 45.0 % [facility] MCV 93.7 80.0 - 100.0 fL [facility] MCH 33.0 27.0 - 33.0 pg [facility] MCHC 35.3 32.0 - 36.0 g/dL [facility] RDW 14.3 11.0 - 15.0 % [facility] Platelet Count 242 140 - 400 Thousand/u L [facility] MPV 9.8 7.5 - 12.5 fL [facility] Neutrophil Absolute 2774 1500 - 7800 cells/uL [facility] Lymphocytes Absolute 1517 850 - 3900 cells/uL [facility] Absolute Monocytes 370 200 - 950 cells/uL [facility] Eosinophils Absolute 91 15 - 500 cells/uL [facility] Basophils Absolute 48 0 - 200 cells/uL [facility] Granulocytes % 57.8 % [facility] Lymphocytes % 31.6 % [facility] Monocytes % 7.7 % [facility] Eosinophils % 1.9 % [facility] Basophils % 1.0 % [facility] Comment: REPORT COMMENT: NO DRAW FEE 2ND ORDER COPY OF INS CARD W/1ST ORDER FASTING:NO Test Performed at: [facility] [address] [place] [address] GREG JACK DO,MPH Blood BLOOD SPECIMEN / Unknown 11/25/2018 2:27 PM CDT 11/25/2018 2:27 PM CDT Mark Vogt MD LAB - HEMATOLOGY ORD ERABLES Performing Organization Address [facility] Co de Phone Number [facility] [address] [place] [address] * HEPATIC FUNCTION PANEL (11/25/2018 2:24 PM CDT) Only the most recent of2 resultswithin the time period is included. Protein Total 7.1 6.1 - 8.1 g/dL [facility] Albumin 4.7 3.6 - 5.1 g/dL [facility] Globulin Total 2.4 1.9 - 3.7 g/dL (calc) [facility] Albumin/Globulin Ratio 2.0 1.0 - 2.5 (calc) [facility] Bilirubin Total 0.3 0.2 - 1.2 mg/dL [facility] Bilirubin Direct 0.1 < OR = 0.2 mg/dL [facility] Bilirubin Indirect 0.2 0.2 - 1.2 mg/dL (calc) [facility] Alkaline Phosphatase 87 33 - 115 U/L [facility] AST 14 10 - 35 U/L [facility] ALT 13 6 - 29 U/L [facility] Comment: REPORT COMMENT: FASTING:NO Test Performed at: [facility] [address] [place] [address] GREG JACK DO,MPH Blood BLOOD SPECIMEN / Unknown 11/25/2018 2:24 PM CDT 11/25/2018 2:25 PM CDT Mark Vogt MD LAB - CHEMISTRY ORDE RABAMANDA Performing Organization Address [facility] Co de Phone Number [facility] [address] [place] [address] * EARLY SJOGREN'S SYNDROME PROFILE (10/09/2018 3:43 PM CARTON MACHINE OPERATOR) Salivary Protein 1 Antibody IgG <1.0 EU/ml [facility] Comment: Reference Range: Negative: <20 EU/ml Positive: =>20 EU/ml Salivary Protein 1 Antibody IgA <1.0 EU/ml [facility] Comment: Reference Range: Negative: <20 EU/ml Positive: =>20 EU/ml Salivary Protein 1 Antibody IgM 10.7 EU/ml [facility] Comment: Reference Range: Negative: <20 EU/ml Positive: =>20 EU/ml Carbonic Anhydrase Antibody IgG 3.5 EU/ml [facility] Comment: Reference Range: Negative: <20 EU/ml Positive: =>20 EU/ml Carbonic Anhydrase Antibody IgA <1.0 EU/ml [facility] Comment: Reference Range: Negative: <20 EU/ml Positive: =>20 EU/ml Carbonic Anhydrase Antibody IgM 7.2 EU/ml [facility] Comment: Reference Range: Negative: <20 EU/ml Positive: =>20 EU/ml Parotid Specific Protein Antibody IgG 4.8 EU/ml [facility] Comment: Reference Range: Negative: <20 EU/ml Positive: =>20 EU/ml Parotid Specific Protein Antibody IgA 1.7 EU/ml [facility] Comment: Reference Range: Negative: <20 EU/ml Positive: =>20 EU/ml Parotid Specific Protein Antibody IgM 9.9 EU/ml [facility] Comment: Reference Range: Negative: <20 EU/ml Positive: =>20 EU/ml Comments SEE BELOW [facility] Comment: The novel antibodies salivary gland protein 1 (SP-1), carbonic anhydrase 6 (CA ) and parotid secretory protein (PSP) have shown to be present in animal models for Sjogren's syndrome (SS) and patients with the disease. The antibodies SP-1, CA and PSP occurred earlier in the course of the disease than antibodies to Ro or La. These antibodies were found in 45% of patients meeting the criteria for SS who lacked antibodies to Ro or La. Furthermore, in patients with idiopathic xerostomia and xerophthalmia for less than 2 years, 76% had antibodies to SP-1 and/or CA while only 31% had antibodies to Ro or La. Antibodies to SP-1, CA and PSP may be useful markers for identifying patients with SS at early stages of the disease or those that lack antibodies to either Ro or La. The presence of the antibodies to SP-1, CA and PSP should be correlated with clinical (dry mouth, dry eyes), serological (Ro, La, NATALYA, RF) and histological (positive lymphocytic focus scores) findings in establishing a definitive diagnosis for SS. Moshe Delgadillo. et al. (2010). A role of lymphotxin in primary sjogren's syndrome. J Immunol; 185: 4352-6058. Philippe Delgadillo et al. (2012). Novel autoantibodies in Sjogren's syndrome. Clinical Immunology; 145, 251-255. *This test has been developed and performance parameters have been validated by [employer] This test has not been approved by the U.S. Food and Drug Administration (FDA); however, US FDA approval is not required for clinical use. It is not intended that clincal diagnosis and patient management decisions be made using these results alone. This test has been validated using serum samples. The radiology administrator has not determined the efficacy of this test when performed on CSF, plasma, joint or pleural fluid specimens. The performance characteristics of this test were determined by [employer] REPORT COMMENT: NO DRAW FEE 3RD ORDER, COPY OF INS CARD W/1ST ORDER FASTING:NO Test Performed at: [facility] [address] [place] [id number] HENRY SINGH,PHD Blood BLOOD SPECIMEN / Unknown 10/09/2018 3:43 PM CARTON MACHINE OPERATOR 10/09/2018 3:46 PM CARTON MACHINE OPERATOR Brooks Sweeney MD LAB - SEROLOGY ORD ERABLES [facility] [address] [place] [address] * NATALYA PANEL COMPREHENSIVE (10/09/2018 3:34 PM CARTON MACHINE OPERATOR) NATALYA Screen NEGATIVE NEGATIVE [facility] Comment: NATALYA IFA is a first line screen for detecting the presence of up to approximately 150 autoantibodies in various autoimmune diseases. A negative NATALYA IFA result suggests NATALYA-associated autoimmune diseases are not present at this time. Visit Physician FAQs for interpretation of all antibodies in the [place], prevalence, and association with diseases at http://education.[employer].happn/ faq/LNS015 dsDNA Antibody <1 IU/mL [facility] Comment: IU/mL Interpretation < or = 4 Negative 5-9 Indeterminate > or = 10 Positive SCL-70 Antibody <1.0 NEG <1.0 NEG AI [facility] SM Antibody <1.0 NEG <1.0 NEG AI [facility] SM/GLOBAL COMPENSATION MANAGER Antibody <1.0 NEG <1.0 NEG AI [facility] Sjogren's Antibodies (SSA) <1.0 NEG <1.0 NEG AI [facility] Sjogren's Antibodies (SSB) <1.0 NEG <1.0 NEG AI [facility] Comment: Test Performed at: [facility] [id number] [facility] [address] GREG JACK DO,MPH Blood BLOOD SPECIMEN / Unknown 10/09/2018 3:34 PM CARTON MACHINE OPERATOR 10/09/2018 3:42 PM CARTON MACHINE OPERATOR Brooks Sweeney MD LAB - SEROLOGY ORD ERABLES Performing Organization Address [facility] de Phone Number [facility] [address] [place] [address] * C-REACTIVE PROTEIN (10/09/2018 3:34 PM CARTON MACHINE OPERATOR) Only the most recent of4 resultswithin the time period is included. C-Reactive Protein 0.5 <8.0 mg/L [facility] Comment: Test Performed at: [facility] [id number] [facility] [place] [address] GREG JACK DO,MPH Blood BLOOD SPECIMEN / Unknown 10/09/2018 3:34 PM CARTON MACHINE OPERATOR 10/09/2018 3:42 PM CARTON MACHINE OPERATOR Brooks Sweeney MD LAB - CHEMISTRY OR DERABLES Performing Organization Address [facility] Co de Phone Number [facility] [address] [place] [address] * HLA TYPING B27 (10/09/2018 3:34 PM CARTON MACHINE OPERATOR) HLA-B27 Antigen NEGATIVE NEGATIVE [facility] Comment: Test Performed at: [facility] [id number] [place] [address] RACHELLE DAVIS MD,PHD,SANDI Blood BLOOD SPECIMEN / Unknown 10/09/2018 3:34 PM CARTON MACHINE OPERATOR 10/09/2018 3:42 PM CARTON MACHINE OPERATOR Brooks Sweeney MD LAB - CHEMISTRY OR DERABLES Performing Organization Address [facility] [place] [address] * ALDOLASE (10/09/2018 3:34 PM CARTON MACHINE OPERATOR) Aldolase 4.2 < OR = 8.1 U/L [facility] Comment: REPORT COMMENT: NO DRAW FEE 2ND ORDER COPY OF INS CARD W/1ST ORDER FASTING:NO Test Performed at: [place], [facility] [address] GREG JACK DO,MPH Blood BLOOD SPECIMEN / Unknown 10/09/2018 3:34 PM CARTON MACHINE OPERATOR 10/09/2018 3:42 PM CARTON MACHINE OPERATOR Brooks Sweeney MD LAB - CHEMISTRY OR DERABLES Performing Organization Address [facility] [place] [address] * ERYTHROCYTE SEDIMENTATION RATE (10/09/2018 3:34 PM CARTON MACHINE OPERATOR) Only the most recent of3 resultswithin the time period is included. Erythrocyte Sedimentation Rate Westergren 6 < OR = 20 mm/h [facility] Comment: Test Performed at: [place], [facility] [address] GREG JACK DO,MPH Blood BLOOD SPECIMEN / Unknown 10/09/2018 3:34 PM CARTON MACHINE OPERATOR 10/09/2018 3:42 PM CARTON MACHINE OPERATOR Brooks Sweeney MD LAB - HEMATOLOGY O RDERABLES Performing Organization Address [facility] [place] [address] * CK BLOOD (10/09/2018 3:34 PM CARTON MACHINE OPERATOR) CK 47 29 - 143 U/L [facility] Comment: Test Performed at: [facility] [address] [address], [facility] [address] GREG JACK DO,MPH Blood BLOOD SPECIMEN / Unknown 10/09/2018 3:34 PM CARTON MACHINE OPERATOR 10/09/2018 3:42 PM CARTON MACHINE OPERATOR Brooks Sweeney MD LAB - CHEMISTRY OR DERABLES Performing Organization Address [facility] [place] [address] * COMPLEMENT C3 C4 PANEL (10/09/2018 3:34 PM CARTON MACHINE OPERATOR) [facility] Complement C3 117 83 - 193 mg/dL [facility] Complement C4 24 15 - 57 mg/dL [facility] Comment: Test Performed at: [facility] [facility] [place] [address] GREG JACK DO,MPH Blood BLOOD SPECIMEN / Unknown 10/09/2018 3:34 PM CARTON MACHINE OPERATOR 10/09/2018 3:42 PM CARTON MACHINE OPERATOR Brooks Sweeney MD LAB - CHEMISTRY OR DERABLES Performing Organization Address [facility] [place] [address] * HEPATITIS C AB W/RFLX TO HCV RNA QN PCR (09/09/2018 2:31 PM CARTON MACHINE OPERATOR) [facility] Hepatitis C Antibody NON-REACTI VE NON-REACT TIN [facility] Signal to Cut-Off 0.01 <1.00 [facility] Comment: REPORT COMMENT: FASTING:NO Test Performed at: [facility] [id number] [address] GREG JACK DO,MPH Blood BLOOD SPECIMEN / Unknown 09/09/2018 2:31 PM CARTON MACHINE OPERATOR 09/09/2018 2:32 PM CARTON MACHINE OPERATOR Mark Vogt MD LAB - CHEMISTRY JALEN REGALADO Performing Organization Address [facility] [place] [address] * COMPREHENSIVE METABOLIC PANEL (09/09/2018 2:31 PM CARTON MACHINE OPERATOR) Only the most recent of6 resultswithin the time period is included. [facility] Glucose 73 65 - 139 mg/dL [facility] [...] 29 U/L [facility] Comment: Test Performed at: [employer] [address] GREG JACK DO,MPH 09/09/2018 2:31 PM CARTON MACHINE OPERATOR 09/09/2018 2:32 PM CARTON MACHINE OPERATOR Mark Vogt MD LAB - CHEMISTRY JALEN REGALADO Performing Organization Address [facility] Co de Phone Number [facility] [address] [place] [address] * HEPATITIS B SURFACE ANTIBODY (09/09/2018 2:31 PM CARTON MACHINE OPERATOR) Hepatitis B Virus Surface Antibody NON-REACTI VE NON-REACT [facility] Comment: Test Performed at: [facility] [id number] [address] [id number] GREG JACK DO,MPH 09/09/2018 2:31 PM CARTON MACHINE OPERATOR 09/09/2018 2:32 PM CARTON MACHINE OPERATOR Mark Vogt MD LAB - CHEMISTRY JALEN [facility] [address] [place] [address] * HEPATITIS B CORE ANTIBODY (09/09/2018 2:31 PM CARTON MACHINE OPERATOR) Hepatitis B Core Virus Antibody Total NON-REACTI VE NON-REACT [facility] Comment: Test Performed at: [facility] [id number] [id number] GREG JACK DO,MPH Blood BLOOD SPECIMEN / Unknown 09/09/2018 2:31 PM CARTON MACHINE OPERATOR 09/09/2018 2:32 PM CARTON MACHINE OPERATOR Mark Vogt MD LAB - CHEMISTRY JALEN REGALADO Performing Organization Address City/[facility]/ZIP Co de Phone Number [facility] [phone] [place] [address] * HEPATITIS B SURFACE ANTIGEN W RFLX CONFIRMATION (09/09/2018 2:31 PM CARTON MACHINE OPERATOR) Hepatitis B Virus Surface Antigen NON-REACTI VE NON-REACT [facility] Comment: Test Performed at: [employer] [id number] GREG JACK DO,MPH 09/09/2018 2:31 PM CARTON MACHINE OPERATOR 09/09/2018 2:32 PM CARTON MACHINE OPERATOR Mark Vogt MD LAB - CHEMISTRY JALEN REGALADO Performing Organization Address [facility] Co de Phone Number [facility] [phone] [place] [address] * AMB REFERRAL TO RHEUMATOLOGY (10/02/2016 4:23 PM CARTON MACHINE OPERATOR) Lesley Bass MD OUTPATIENT REFERRAL S * MRI SPINE CERVICAL NON CONTRAST (09/27/2016 4:54 PM CARTON MACHINE OPERATOR) Anatomical Region Laterality Modality Pelvis Magnetic Resonan ce 09/28/2016 8:07 AM CARTON MACHINE OPERATOR Impressions 09/28/2016 8:40 AM CARTON MACHINE OPERATOR 1. Mild degenerative disc changes. 2. C4-5 mild posterior annular bulge/spondylitic change without stenosis. Edited by Venus Lehman on 09/28/2016 8:16 AM Narrative 09/28/2016 8:40 AM CARTON MACHINE OPERATOR MRI CERVICAL SPINE WITHOUT CONTRAST CLINICAL INDICATION: Neck pain and cervical radiculopathy. TECHNIQUE: Sagittal T1 and T2 weighted images, axial T2 noncontrast, sagittal STIR. COMPARISON: None. FINDINGS Degenerative disc changes are present from C2 through C7 with loss of T2-weighted signal. There is no evidence of acute fracture, subluxation or dislocation. No acute bone marrow edema is present. Visualized spinal cord is grossly unremarkable. On dedicated axial images: C2-3: No focal disc protrusion, central canal stenosis or neural foraminal narrowing is present. C3-4: No focal disc protrusion, central canal stenosis or neural foraminal narrowing is present. C4-5: Mild posterior annular bulge/spondylitic change is present without overt central stenosis or neural foraminal narrowing. C5-6: No focal disc protrusion, central canal stenosis or neural foraminal narrowing is present. C6-7: No focal disc protrusion, central canal stenosis or neural foraminal narrowing is present. C7-T1: No focal disc protrusion, central canal stenosis or neural foraminal narrowing is present. Procedure Note Enzo Abarca MD - 09/28/2016 MRI CERVICAL SPINE WITHOUT CONTRAST CLINICAL INDICATION: Neck pain and cervical radiculopathy. TECHNIQUE: Sagittal T1 and T2 weighted images, axial T2 noncontrast, sagittal STIR. COMPARISON: None. FINDINGS Degenerative disc changes are present from C2 through C7 with loss of T2-weighted signal. There is no evidence of acute fracture, subluxation or dislocation. No acute bone marrow edema is present. Visualized spinal cord is grossly unremarkable. On dedicated axial images: C2-3: No focal disc protrusion, central canal stenosis or neural foraminal narrowing is present. C3-4: No focal disc protrusion, central canal stenosis or neural foraminal narrowing is present. C4-5: Mild posterior annular bulge/spondylitic change is present without overt central stenosis or neural foraminal narrowing. C5-6: No focal disc protrusion, central canal stenosis or neural foraminal narrowing is present. C6-7: No focal disc protrusion, central canal stenosis or neural foraminal narrowing is present. C7-T1: No focal disc protrusion, central canal stenosis or neural foraminal narrowing is present. IMPRESSION 1. Mild degenerative disc changes. 2. C4-5 mild posterior annular bulge/spondylitic change without stenosis. Edited by Venus Lehman on 09/28/2016 8:16 AM Lesley Bass MD MR ORDERABLES * MRI BRAIN NON CONTRAST (09/27/2016 4:54 PM CARTON MACHINE OPERATOR) Anatomical Region Laterality Modality Head Magnetic Resonan ce 09/28/2016 8:10 AM CARTON MACHINE OPERATOR Impressions 09/28/2016 8:40 AM CARTON MACHINE OPERATOR Unremarkable MRI examination of the brain. Edited by Venus Lehman on 09/28/2016 8:18 AM Narrative 09/28/2016 8:40 AM CARTON MACHINE OPERATOR MRI BRAIN WITHOUT CONTRAST Indication: Polyneuropathy and cervical radiculopathy. Head pain. Technique: Axial diffusion-weighted imaging, sagittal T1, axial T1, T2, dual-echo and coronal FLAIR noncontrast Comparison: None. Findings Axial diffusion imaging demonstrates no abnormal areas of restricted diffusion to suggest hyperacute or acute ischemic changes or cytotoxic edema. The ventricles, gyri and sulci are appropriate. There is no evidence of midline shift, mass, mass effect or acute intracranial hemorrhage. Grossly normal vascular flow-void is seen in the skull base. The paranasal sinuses and mastoid air cells are well-aerated. Procedure Note Enzo Abarca MD - 09/28/2016 MRI BRAIN WITHOUT CONTRAST Indication: Polyneuropathy and cervical radiculopathy. Head pain. Technique: Axial diffusion-weighted imaging, sagittal T1, axial T1, T2, dual-echo and coronal FLAIR noncontrast Comparison: None. Findings Axial diffusion imaging demonstrates no abnormal areas of restricted diffusion to suggest hyperacute or acute ischemic changes or cytotoxic edema. The ventricles, gyri and sulci are appropriate. There is no evidence of midline shift, mass, mass effect or acute intracranial hemorrhage. Grossly normal vascular flow-void is seen in the skull base. The paranasal sinuses and mastoid air cells are well-aerated. IMPRESSION Unremarkable MRI examination of the brain. Edited by Venus eLhman on 09/28/2016 8:18 AM Lesley Bass MD MR ORDERABLES * MAMMOGRAPHY ORDER (02/21/2016) Anatomical Region Laterality Modality Other Salvador Hector MD MAMMO ORDERABLES * LYME DISEASE AB IGM + TOTAL RFLX WB (POREFLAB) (02/08/2016 12:56 PM CDT) Lyme Disease Antibody IgG/IgM <0.91 0.00 - 0.90 ISR [facility] ACCOUNT BILL Comment: Negative <0.91 Equivocal 0.91 - 1.09 Positive >1.09 Lyme Disease Antibody IgM Quantitative <0.80 0.00 - 0.79 index [facility] ACCOUNT BILL Comment: Negative <0.80 Equivocal 0.80 - 1.19 Positive >1.19 . IgM levels may peak at 3-6 weeks post infection, then gradually decline. Blood specimen (specimen) BLOOD SPECIMEN / Unknown 02/08/2016 12:56 PM CDT 02/08/2016 5:16 PM CDT Narrative Resulting Agency Comment [facility] [address] [facility] [phone] Lesley Bass MD LAB - SEROLOGY JALEN REGALADO [facility] ACCOUNT BILL [address] [place] [address] * BARTONELLA ANTIBODY PANEL (02/08/2016 12:56 PM CDT) Bartonella henselae Antibody IgG Negative Neg:<1:32 0 titer [facility] ACCOUNT BILL Bartonella henselae Antibody IgM Negative Neg:<1:10 0 titer [facility] ACCOUNT BILL Bartonella ruff Antibody IgG Negative Neg:<1:32 0 titer [facility] ACCOUNT BILL Bartonella ruff Antibody IgM Negative Neg:<1:10 0 titer [facility] ACCOUNT BILL Comment: Note: Bartonella henselae is now regarded as the etiologic agent of Cat [place]ratch Disease, bacillary angiomatosis, endocarditis and fever with bacteremia. Bartonella ruff also causes bacillary angiomatosis particularly among immunocompromised patients, and trench fever. . This test was developed and its performance characteristics determined by [facility]. It has not been cleared or approved by the Food and Drug Administration. The FDA has determined that such clearance or approval is not necessary. Blood specimen (specimen) BLOOD SPECIMEN / Unknown 02/08/2016 12:56 PM CDT 02/08/2016 5:16 PM CDT Narrative Resulting Agency Comment [facility] [place] [id number] [facility] [id number] Lesley Bass MD LAB - SEROLOGY JALEN REGALADO [facility] ACCOUNT BILL [address] [place] [address] * BORRELIA RELAPSING FEVER PANEL (02/08/2016 12:56 PM CDT) Borellia hermsii Antibody IgG <1:64 [facility] ACCOUNT BILL Borellia hermsii Antibody IgM <1:16 [facility] ACCOUNT BILL Interpretation Borrelia [facility] ACCOUNT BILL Comment: COMMENTS ANTIBODY NOT DETECTED . REFERENCE RANGES: IgG <1:64 IgM <1:16 . Single IgG titers of 1:64 and greater against Borrelia hermsii are considered presumptive evidence of infection by Borrelia. A fourfold or greater change in titer between acute and convalescent sera provides evidence of recent or current infection. Acute sera generally show specific IgM titers > or = to 1:16 while patients with manifestations of later stages of disease display elevated IgG titers only. Crossreactivity is shown with other Borrelia species and Treponema; therefore, positive specimens should be assayed in parallel against these antigens when possible to identify the specific species causing infection. . This test was developed and its analytical performance characteristics have been determined by [facility]. It has not been cleared or approved by the U.S. Food and Drug Administration. The FDA has determined that such clearance or approval is not necessary. This assay has been validated pursuant to the CLIA regulations and is used for clinical purposes. Blood specimen (specimen) BLOOD SPECIMEN / Unknown 02/08/2016 12:56 PM CDT 02/08/2016 5:16 PM CDT Narrative Resulting Agency Comment [facility] [address] [facility] [id number] Lesley Bass MD LAB - SEROLOGY JALEN REGALADO Performing Organization Address City/[facility]/ZIP Co de Phone Number [facility] ACCOUNT BILL [address] [place] [address] * LIPID PROFILE (02/01/2016 1:00 PM CDT) Only the most recent of2 resultswithin the time period is included. Cholesterol 120 100 - 199 mg/dL [facility] ACCOUNT BILL Triglycerides 99 0 - 149 mg/dL [facility] ACCOUNT BILL HDL Cholesterol 40 >39 mg/dL [facility] ACCOUNT BILL Comment: According to ATP-III Guidelines, HDL-C >59 mg/dL is considered a negative risk factor for CHD. VLDL Calculated 20 5 - 40 mg/dL [facility] ACCOUNT BILL LDL Calculated 60 0 - 99 mg/dL [facility] ACCOUNT BILL Comment NOT NEEDED [facility] ACCOUNT BILL Comment:Ancillary determined the test is not needed Blood specimen (specimen) BLOOD SPECIMEN / Unknown 02/01/2016 1:00 PM CDT 02/01/2016 4:04 PM CDT Narrative Resulting Agency Comment [facility] [address] [facility] [phone] Fer Jaquez MD LAB - CHEMISTRY JALEN REGALADO [facility] Organization Address City/State/ZIP Co de Phone Number [facility] ACCOUNT BILL [address] [place] [address] * PATHOLOGY/CYTOLOGY REPORT ORDER (12/15/2015) Scanned Document LAB - PATHOLOGY/CYTO LOGY ORDERABLES * NERVE CONDUCTION TEST (11/28/2015 8:13 AM CDT) Narrative Ganesh Lau MD - 11/28/2015 8:13 AM CDT Ganesh Lau MD 11/28/2015 8:13 AM [facility] [address] [place] [address]. [address] [place] [address] Patient: Pipo Thapa V #: Physician: Ganesh Lau M.D. Sex: Female ID#: [id number] Ref Phys: Lesley Bass M.D. : 1970 Date: 11/27/2015 Career Agent: Sydnie Coello LPN Patient History: Patient is a 44 year-old female who presents with paresthesias in lower extremities and left upper extremity. Query neuropathy. EMG & NCV Findings: All nerve conduction studies (as indicated in the following tables) were within normal limits. All examined muscles (as indicated in the following table) showed no evidence of electrical instability. IMPRESSION: This study of the bilateral lower extremities and left upper extremity is within normal limits. Note, however, that a normal study does not rule out small fiber neuropathy. Nerve Conduction Studies Anti Sensory Summary Table Site NR Onset (ms) Norm Onset (ms) Peak (ms) O-P Amp ( V) Norm O-P Amp Site1 Site2 Delta-P (ms) Dist (cm) R Dist (cm) Vignesh (m/s) Norm Vignesh (m/s) Left Radial Anti Sensory (Base 1st Digit) Wrist 1.6 2.2 57.9 Wrist Base 1st Digit 2.2 10.0 45 Left Sup Peron Anti Sensory (Ant Lat Mall) 14 cm 3.0 3.8 11.6 >5.0 14 cm Ant Lat Mall 3.8 14.0 14.0 37 >32 Right Sup Peron Anti Sensory (Ant Lat Mall) 14 cm 2.4 3.5 12.3 >5.0 14 cm Ant Lat Mall 3.5 14.0 14.0 40 >32 Left Sural Anti Sensory (Lat Mall) Calf 3.1 4.0 16.5 >5.0 Calf Lat Mall 4.0 14.0 14.0 35 >35 Right Sural Anti Sensory (Lat Mall) Calf 3.1 4.0 23.4 >5.0 Calf Lat Mall 4.0 14.0 14.0 35 >35 Motor Summary Table Site NR Onset (ms) Norm Onset (ms) O-P Amp (mV) Norm O-P Amp Site1 Site2 Delta-0 (ms) Dist (cm) Vignesh (m/s) Norm Vignesh (m/s) Left Median Motor (Abd Poll Brev) Wrist 3.4 <4.5 8.5 >3 Elbow Wrist 3.9 24.0 62 >48 Elbow 7.3 7.0 Left Peroneal Motor (Ext Dig Brev) Ankle 4.7 <6.6 6.1 >2.0 B Fib Ankle 6.5 30.0 46 >42 B Fib 11.2 5.1 Poplt B Fib 1.8 12.0 67 >42 Poplt 13.0 5.6 Left Tibial Motor (Abd Lund Brev) Ankle 3.8 <6.6 11.9 >2.0 Knee Ankle 9.2 39.0 42 >42 Knee 13.0 9.3 Left Ulnar Motor (Abd Dig Minimi) Wrist 2.7 <3.6 10.6 >5 B Elbow Wrist 3.5 23.0 66 >48 B Elbow 6.2 8.8 A Elbow B Elbow 1.6 11.5 72 >48 A Elbow 7.8 9.2 Comparison Summary Table Site NR Onset (ms) Peak (ms) Norm Peak (ms) P-T Amp ( V) Site1 Site2 Delta-P (ms) Norm Delta (ms) Vignesh (m/s) Left Median/Ulnar Palm Comparison (Wrist - 8cm) Median Palm 1.3 1.8 <2.2 111.7 Median Palm Ulnar Palm 0.1 <0.5 800 Ulnar Palm 1.2 1.7 <2.1 66.6 H Reflex Studies NR H-Lat (ms) L-R H-Lat (ms) L-R Lat Norm Left Tibial (Gastroc) 29.05 0.00 <2.0 Right Tibial (Gastroc) 29.05 0.00 <2.0 EMG Side Muscle Nerve Root Ins Act Fibs Psw Amp Dur Poly Recrt Int Pat Comment Left PeroneusTert Dp Br Peron L5, S1 Nml Nml Nml Nml Nml 0 Nml Nml Left DIP IV LatPlantar S1-2 Nml Nml Nml Nml Nml 0 Nml Nml Left AntTibialis Dp Br Peron L4-5 Nml Nml Nml Nml Nml 0 Nml Nml Left Gastroc Tibial S1-2 Nml Nml Nml Nml Nml 0 Nml Nml Left VastusMed Femoral L2-4 Nml Nml Nml Nml Nml 0 Nml Nml Left 1stDorInt Ulnar C8-T1 Nml Nml Nml Nml Nml 0 Nml Nml Waveforms: Abbreviations: CMAP = compound muscle action potential, SNAP = sensory nerve action potential, MUP = motor unit potential, Fib = fibrillation, PSW = positive sharp wave, NCS = nerve conduction study, RNS = repetitive nerve stimulation Lesley Bass MD NEUROLOGY ORDERABLE S * NM MYOCARD PERFUSION SPECT STRESS AND REST (10/19/2015 3:07 PM CARTON MACHINE OPERATOR) Anatomical Region Laterality Modality Chest Nuclear Digisoni cs 10/19/2015 12:2 3 PM CARTON MACHINE OPERATOR Narrative Procedure Note Yanelis Givens MD - 10/19/2015 [address] [place] [address] [place]/heart Nuclear Myocardial Perfusion Scan Report Pat.Name: PIPO THAPA Pat.ID: [id number] .Date: 10/19/2015 Refer.MD: Salvador Hector MD Exam Time: 12:23:00 PM Study Type:Nuclear Myocardial Perfusion Scan Height: 167.64cm Weight: 72.27kg BSA: 1.82 m2 Age: 4 1970,44Y Sex: FEMALE Sonogrphr: MORGAN Vo Reason for Study:Chest pain- occasional History / Clinical:Fibromyalgia, Unable to achieve with HR with treadmill and dobutamine stress tests Procedures:Lexiscan Perfusion Scan, Gated Stress Visit ID: [id number] Nurse: CLARK Oliveira Risk Factors:Hypercholesterolemia, Family history, Prior History of Smoking Clinical Symptoms:Chest pain- occasional Medications:Elavil, Klonopin Supervised by:CLARK Oliveira SUMMARY: FINDINGS: Myocardial perfusion imaging reveals uniform distribution of the radiopharmaceutical isotope during the stress and rest imaging sets. Left ventricular cavity size appears normal in both imaging sets. Gated images reveal normal LV systolic function with a calculated ejection fraction of >65%. SUMMARY: 1. Normal myocardial perfusion study without evidence of ischemia. 2. Gated images demonstrate normal LV systolic function. STRESS: Baseline Vital Signs: Intervention: Lexiscan ECG: Normal sinus rhythm Peak Dose: 0.4 mg HR: 98 BP: 86/62 QRS [place]: 0.35 deg Stress Test Results: Symptoms and Complications: Arrhythmias: None Terminated: Protocol completed Symptoms: Fatigue, Dizziness, Headache Conclusions: Normal heart rate response to pharmacological stress., Baseline hypotension, slightly lower with lexiscan, back to baseline. Stress ECG Interp: No ischemic S-T changes during lexiscan infusion. Signed 10/19/2015 04:41 PM Emma Givens MD, [facility] Fer Jaquez MD NM ORDERABLES * ECG STRESS TRACING (10/17/2015 10:06 AM CARTON MACHINE OPERATOR) Only the most recent of2 resultswithin the time period is included. Stress Test Summary For full formatted report, please see the report link in the order. Acquisition Time: 2015-10-17 10:06:45 Total Exercise Time: 00:25:41 Test Indications: HDL Medications: Lipitor (has not yet taken) Protocol: DOBUTAMINE Max HR: 125 BPM 71% of Pred: 174 BPM Max BP: 129/094 mmHG Max Work Load: 1.0 METS Reason for Termination: failed to achieve HR even with atropine, pt is un Resting ECG: Normal Functional Capacity: Could Not Be Adequately Assessed HR Response to Exercise: not applicable BP Resoonse to Exercise: not applicable Chest Pain: none Arrhythmias: none ST Changes: none Overall Impression: Normal but submaximal Diagnosis: Dobutamine stress test was performed. Baseline ECG showed normal sinus rhythm. Initial HR was 84 bpm and peaked to 123 bpm which was 71% of the predicted max HR for age. Failed to achieve the target HR even with 40mck/kg/min Dobutamine with 1 mg of atropine. No inducible chest pain. No arrhythmias. No ST-T wave changes diagnostic for ischemia. Echo images showed no stress-induced wall motion abnormalities however diagnostic sensitivity was decreased by submaximal. Failed to achieve target HR, Images reviewed by Dr Givens. Confirmed by MD GIVENS MADHU ([id number]) on 10/24/2015 8:18:44 AM Attending Physician: Eve Ferrell ANP-Jeffrey Referred By: salvador VLAERA [facility] Overread By: FAYE GIVENS MD [facility] STRESS 10/17/2015 10:0 6 AM CARTON MACHINE OPERATOR 10/24/2015 8:18 AM CARTON MACHINE OPERATOR Fer Jaquez MD CARDIAC SERVICES ORD ERABLES [facility] STRESS * ECHOCARDIOGRAM STRESS Dobutamine (resting) Echocardiogram (10/17/2015 10:04 AM CARTON MACHINE OPERATOR) 10/17/2015 10:0 4 AM CARTON MACHINE OPERATOR Narrative [facility] CARDIOLOGY - 10/18/2015 2:34 PM CARTON MACHINE OPERATOR Dobutamine Stress Echocardiography Name: PIPO THAPA MR #: [id number] Study date: 17-Oct-2015 : 1970 Age: 44 years Gender: Female Height: 66 in Weight: 158 lb BSA: 1.81 m Allergies: PENICILLINS, PROPOXYPHENE N-APAP, SULFA DRUGS, HYDROCODONE-ACETAMINOPHEN Reading Physician: Emma Givens MD Referring Physician: Fer Jaquez MD Performing Nurse Practitioner: DIEGO Jaimes- [employer]arse [employer] Drawer: Essence Puga RDCS CLINICAL QUESTION: Chest pain Detection of coronary artery disease. HISTORY: The patient is a 44 year old female. Chest pain status: no chest pain. PHYSICAL EXAM: Baseline physical exam screening: normal, normal cardiac exam, and normal lung exam. REST ECG: Normal sinus rhythm. The ECG showed no atrial ectopy, no ventricular ectopy, normal conduction, and normal QRS morphology. PROCEDURE: The procedure was explained to the patient and informed consent was obtained. A dobutamine infusion pharmacologic stress test was performed. Stress and rest echocardiographic evaluation with 2D imaging, spectral Doppler, color Doppler, and Definity intravenous contrast was performed from multiple acoustic windows for evaluation of ventricular function. Systolic blood pressure was 123 mmHg, at the start of the study. Diastolic blood pressure was 69 mmHg, at the start of the study. The heart rate was 83 bpm, at the start of the study. DOBUTAMINE PROTOCOL: HR bpm SBP mmHg DBP mmHg Symptoms Baseline 83 123 69 none 10 mcg/kg/min 82 116 75 -- 20 mcg/kg/min 91 119 61 -- 30 mcg/kg/min 110 118 32 -- 40 mcg/kg/min 123 129 94 -- IV atropine ( 1 mg) was administered. STRESS SUMMARY: Duration of pharmacologic stress was Maximal heart rate during stress was 123 bpm ( 71 % of maximal predicted heart rate). Target heart rate was not achieved. The heart rate response to stress was blunted. Maximal systolic blood pressure during stress was 129 mmHg. There was normal resting blood pressure with an appropriate response to stress. The rate-pressure product for the peak heart rate and blood pressure was [id number]. There was no chest pain during stress. Failed to achieve HR even with max dose dobutamine and 1 mg total of atropin. The stress test was terminated due to protocol completion. Unfortunately failed to achieve her target HR even with max dose of dobutamine and a mg of atropine. The stress ECG was negative for ischemia. There were no stress arrhythmias or conduction abnormalities. The sensitivity of this test was limited by a failure to achieve target heart rate. STRESS 2D ECHOCARDIOGRAPHIC RESULTS: BASELINE: Overall left ventricular systolic function was normal. PEAK STRESS: There was an appropriate augmentation in LV function. ECHO IMPRESSIONS: Echo images showed no stress-induced wall motion abnormalities per Dr givens however diagnostic sensitivity was decreased by submaximal stress. failed to achieve the target HR. SUMMARY: - Stress results: Target heart rate was not achieved. There was no chest pain during stress. Failed to achieve HR even with max dose dobutamine and 1 mg total of atropin. - ECG conclusions: The stress ECG was negative for ischemia. The sensitivity of this test was limited by a failure to achieve target heart rate. - Echo image interpretation: Echo images showed no stress-induced wall motion abnormalities per Dr givens however diagnostic sensitivity was decreased by submaximal stress. failed to achieve the target HR. IMPRESSIONS: Normal study after pharmacologic stress. Diagnostic sensitivity was limited by submaximal stress. Prepared and signed by Emma Givens MD Signed 18-Oct-2015 14:33:51 Procedure Note Yanelis Givens MD - 10/18/2015 Dobutamine Stress Echocardiography Name: PIPO THAPA MR #: [id number] Study date: 17-Oct-2015 : 1970 Age: 44 years Gender: Female Height: 66 in Weight: 158 lb BSA: 1.81 m Allergies: PENICILLINS, PROPOXYPHENE N-APAP, SULFA DRUGS, HYDROCODONE-ACETAMINOPHEN Reading Physician: Emma Givens MD Referring Physician: Fer Jaquez MD Performing Nurse Practitioner: DIEGO Jaimes- [employer] Drawer: Essence Puga RDCS CLINICAL QUESTION: Chest pain Detection of coronary artery disease. HISTORY: The patient is a 44 year old female. Chest pain status: no chest pain. PHYSICAL EXAM: Baseline physical exam screening: normal, normal cardiac exam, and normal lung exam. REST ECG: Normal sinus rhythm. The ECG showed no atrial ectopy, no ventricular ectopy, normal conduction, and normal QRS morphology. PROCEDURE: The procedure was explained to the patient and informed consent was obtained. A dobutamine infusion pharmacologic stress test was performed. Stress and rest echocardiographic evaluation with 2D imaging, spectral Doppler, color Doppler, and Definity intravenous contrast was performed from multiple acoustic windows for evaluation of ventricular function. Systolic blood pressure was 123 mmHg, at the start of the study. Diastolic blood pressure was 69 mmHg, at the start of the study. The heart rate was 83 bpm, at the start of the study. DOBUTAMINE PROTOCOL: HR bpm SBP mmHg DBP mmHg Symptoms Baseline 83 123 69 none 10 mcg/kg/min 82 116 75 -- 20 mcg/kg/min 91 119 61 -- 30 mcg/kg/min 110 118 32 -- 40 mcg/kg/min 123 129 94 -- IV atropine ( 1 mg) was administered. STRESS SUMMARY: Duration of pharmacologic stress was Maximal heart rate during stress was 123 bpm ( 71 % of maximal predicted heart rate). Target heart rate was not achieved. The heart rate response to stress was blunted. Maximal systolic blood pressure during stress was 129 mmHg. There was normal resting blood pressure with an appropriate response to stress. The rate-pressure product for the peak heart rate and blood pressure was [id number]. There was no chest pain during stress. Failed to achieve HR even with max dose dobutamine and 1 mg total of atropin. The stress test was terminated due to protocol completion. Unfortunately failed to achieve her target HR even with max dose of dobutamine and a mg of atropine. The stress ECG was negative for ischemia. There were no stress arrhythmias or conduction abnormalities. The sensitivity of this test was limited by a failure to achieve target heart rate. STRESS 2D ECHOCARDIOGRAPHIC RESULTS: BASELINE: Overall left ventricular systolic function was normal. PEAK STRESS: There was an appropriate augmentation in LV function. ECHO IMPRESSIONS: Echo images showed no stress-induced wall motion abnormalities per Dr givens however diagnostic sensitivity was decreased by submaximal stress. failed to achieve the target HR. SUMMARY: - Stress results: Target heart rate was not achieved. There was no chest pain during stress. Failed to achieve HR even with max dose dobutamine and 1 mg total of atropin. - ECG conclusions: The stress ECG was negative for ischemia. The sensitivity of this test was limited by a failure to achieve target heart rate. - Echo image interpretation: Echo images showed no stress-induced wall motion abnormalities per Dr givens however diagnostic sensitivity was decreased by submaximal stress. failed to achieve the target HR. IMPRESSIONS: Normal study after pharmacologic stress. Diagnostic sensitivity was limited by submaximal stress. Prepared and signed by Emma Givens MD Signed 18-Oct-2015 14:33:51 Fer Jaquez MD ECHO ORDERABLES Performing Organization Address City/State/[facility] [place] [address] * VAS ARTERIAL ANKLE ARM INDEX (10/12/2015 10:05 AM CARTON MACHINE OPERATOR) Anatomical Region Laterality Modality Ultrasound 10/12/2015 7:42 AM CARTON MACHINE OPERATOR Narrative Procedure Note George Watson MD - 10/12/2015 [place] [address] Lower Extremity Arterial Doppler Report Pat.Name: PIPO THAPA Pat.ID: [id number] .Date: 10/12/2015 Refer.MD: TRENT VALERA Exam Time: 7:42:00 AM Study Type:DELFIN/PVR Age: 4 1970,44Y Sex: FEMALE Sonogrphr: Abbi Feliz RVT Pat. Stat.:Outpatient ICD - 9: numbness CPT - 4: 15750 Reason for Study:Numbness Procedures:Ankle Arm Index Visit ID: [id number] SUMMARY: Based on this resting examination, there is no evidence for significant arterial insufficiency of either the right or left lower extremity. FINDINGS: Procedure: The arterial vasculature of the lower extremities was evaluated by analysis of Doppler pressures and waveforms obtained in the legs at rest. Study Quality: This study is of adequate technical quality. DELFIN: Rt ankle brachial index is 1.2. Left ankle brachial index is 1.2 (normal greater than 0.90). Arterial doppler waveforms of the right SPEECH SCIENTIST and Dorsalis Pedis are triphasic. Arterial doppler waveforms of the left SPEECH SCIENTIST and Dorsalis Pedis are triphasic. MEASUREMENTS: PRESSURES Left 1st Digit GreatToe P 75 mmHg Left DELFIN (DP) DELFIN (DP) 1.1 Left DELFIN (PT) DELFIN (PT) 1.17 Left Ankle DP AnkleDP P 108 mmHg Left Ankle PT AnklePT P 115 mmHg Left Brachial Brach P 98 mmHg Left DBI DBI 0.77 Right 1st Digit GreatToe P 67 mmHg Right DELFIN (DP) DELFIN (DP) 1.1 Right DELFIN (PT) DELFIN (PT) 1.22 Right Ankle DP AnkleDP P 108 mmHg Right Ankle PT AnklePT P 120 mmHg Right Brachial Brach P 90 mmHg Right DBI DBI 0.68 Signed 10/12/2015 11:40 AM George Watson MD Fer Jaquez MD VASCULAR LAB ORDERAB LES * LAB RESULTS ORDER (05/01/2015) Historical Provider LAB - THERAPEUTIC DRUG MONITORING ORDERABLES * XR TOES 2+ VW RIGHT (07/23/2014) Anatomical Region Laterality Modality Ankle / Foot Other Provider Unknown DIAGNOSTIC IMAGING O RDERABLES * HIV-1 ANTIBODY (06/15/2014) Blood specimen (specimen) BLOOD SPECIMEN / Unknown Provider Unknown LAB - CHEMISTRY JALEN REGALADO * (ABNORMAL) LIPID PROFILE W LDL/HDL (PO REF LAB) (05/05/2014 2:42 PM CDT) Cholesterol 232(H) 100 - 199 mg/dL [facility] ACCOUNT BILL Triglycerides 86 0 - 149 mg/dL [facility] ACCOUNT BILL HDL Cholesterol 49 >39 mg/dL [facility] ACCOUNT BILL Comment: According to ATP-III Guidelines, HDL-C >59 mg/dL is considered a negative risk factor for CHD. VLDL Calculated 17 5 - 40 mg/dL [facility] ACCOUNT BILL LDL Calculated 166(H) 0 - 99 mg/dL [facility] ACCOUNT BILL Comment NOT NEEDED [facility] ACCOUNT BILL Comment:Ancillary determined the test is not needed LDL/HDL Ratio 3.4(H) 0.0 - 3.2 ratio units [facility] ACCOUNT BILL Blood specimen (specimen) BLOOD SPECIMEN / Unknown 05/05/2014 2:42 PM CDT 05/05/2014 6:11 PM CDT Narrative Resulting Agency Comment [facility] [address] [phone] Salvador Hector MD LAB - CHEMISTRY O RDERABLES [facility] ACCOUNT BILL * (ABNORMAL) THYROID PANEL W TSH (05/05/2014 2:42 PM CDT) Only the most recent of3 resultswithin the time period is included. TSH 0.942 0.450 - 4.500 uIU/mL [facility] ACCOUNT BILL Comment NOT NEEDED [facility] ACCOUNT BILL Comment:Ancillary determined the test is not needed T4 Total 8.1 4.5 - 12.0 ug/dL [facility] ACCOUNT BILL T3 Uptake 22(L) 24 - 39 % [facility] ACCOUNT BILL Free Thyroxine Index 1.8 1.2 - 4.9 [facility] ACCOUNT BILL Blood specimen (specimen) BLOOD SPECIMEN / Unknown 05/05/2014 2:42 PM CDT 05/05/2014 6:11 PM CDT Narrative Resulting Agency Comment [place] [phone] [facility] [phone] Salvador Hector MD LAB - CHEMISTRY O RDERABLES Performing Organization Address [facility] Co de Phone Number [facility] ACCOUNT BILL * (ABNORMAL) VITAMIN D 25-HYDROXY (05/05/2014 2:42 PM CDT) Only the most recent of4 resultswithin the time period is included. Vitamin D, 25 Hydroxy 22.3(L) 30.0 - 100.0 ng/mL [facility] ACCOUNT BILL Comment: Vitamin D deficiency has been defined by the [place] of Medicine and an Endocrine Society practice guideline as a level of serum 25-OH vitamin D less than 20 ng/mL (1,2). The Endocrine Society went on to further define vitamin D insufficiency as a level between 21 and 29 ng/mL (2). 1. IOM ([place] of Medicine). 2010. Dietary reference intakes for calcium and D. [place]: The National Academies Press. 2. [place] MF, Svetlana NC, Jerrica SHIRLEY, et al. Evaluation, treatment, and prevention of vitamin D deficiency: an Endocrine Society clinical practice guideline. JCEM. 2010; 96(7):1911-30. Blood specimen (specimen) BLOOD SPECIMEN / Unknown 05/05/2014 2:42 PM CDT 05/05/2014 6:11 PM CDT Narrative Resulting Agency Comment [facility] [address] [facility] [phone] Salvador Hector MD LAB - CHEMISTRY O RDERABLES Performing Organization Address City/[facility]/ZIP Co de Phone Number [facility] ACCOUNT BILL * CECILIA SCREENING DIGITAL IMAGE BILATERAL [id number] (04/07/2013 2:20 PM CDT) Only the most recent of3 resultswithin the time period is included. Anatomical Region Laterality Modality Breast Bilateral Mammography 04/08/2013 11:0 5 AM CDT Narrative 04/08/2013 11:07 AM CDT EXAMINATION: Digital screening mammogram on 04/07/13. PRIOR: 2011 FINDINGS: Computer assisted detection was utilized. Tissue is extremely dense. This reduces the sensitivity of mammography. There is no significant change since the prior mammogram. ASSESSMENT: BIRADS Category 1: Negative mammogram. RECOMMENDATION: Follow up in one year. [facility] Breast [facility] [place] utilizes [employer] as a reminder system to notify patients of their next recommended mammogram. Procedure Note Krystin Pacheco MD - 04/08/2013 EXAMINATION: Digital screening mammogram on 04/07/13. PRIOR: 2011 FINDINGS: Computer assisted detection was utilized. Tissue is extremely dense. This reduces the sensitivity of mammography. There is no significant change since the prior mammogram. ASSESSMENT: BIRADS Category 1: Negative mammogram. RECOMMENDATION: Follow up in one year. [facility] utilizes [employer] as a reminder system to notify patients of their next recommended mammogram. Salvador Hector MD MAMMO ORDERABLES * CELIAC DISEASE COMPREHENSIVE (PO REF LAB) (04/07/2013 12:40 PM CDT) Antigliadin Antibody IgA 14 0 - 19 units [facility] ACCOUNT BILL Comment: Negative 0 - 19 Weak Positive 20 - 30 Moderate to Strong Positive >30 Gliadin Deamidated Antibody IgG 6 0 - 19 units [facility] ACCOUNT BILL Comment: Negative 0 - 19 Weak Positive 20 - 30 Moderate to Strong Positive >30 TTG Antibody IgA <2 0 - 3 U/mL [facility] ACCOUNT BILL Comment: Negative 0 - 3 Weak Positive 4 - 10 Positive >10 . Tissue Transglutaminase (tTG) has been identified as the endomysial antigen. Studies have demonstr- ated that endomysial IgA antibodies have over 99% specificity for gluten sensitive enteropathy. TTG Antibody IgG <2 0 - 5 U/mL [facility] ACCOUNT BILL Comment: Negative 0 - 5 Weak Positive 6 - 9 Positive >9 Endomysial Antibody IgA Negative Negative [facility] ACCOUNT BILL IgA Quantitative 106 91 - 414 mg/dL [facility] ACCOUNT BILL BLOOD SPECIMEN / Unknown 04/07/2013 12:40 PM CDT 04/07/2013 6:19 PM CDT Narrative Resulting Agency Comment [facility] [address] [facility] [phone] Salvador Hector MD LAB - CHEMISTRY O RDERABLES [facility] ACCOUNT BILL * VITAMIN B12 (04/07/2013 12:40 PM CDT) Vitamin B12 525 211 - 946 pg/mL [facility] ACCOUNT BILL Blood specimen (specimen) BLOOD SPECIMEN / Unknown 04/07/2013 12:40 PM CDT 04/07/2013 6:19 PM CDT Narrative Resulting Agency Comment [facility] [address] [facility] [phone] Salvador Hector MD LAB - CHEMISTRY O RDSHRADDHA Performing Organization Address [facility] Co de Phone Number [facility] ACCOUNT BILL * ANTI-MULLERIAN HORMONE (01/11/2013 10:29 AM CDT) Anti-Mullerian Hormone (AMH) <0.16 ng/mL [facility] ([facility]) Comment: REFERENCE RANGES for AMH/MIS: Age Expected range (ng/mL) Female: <14 yrs 0.30-11.21 14-19 yrs Not established 20-29 yrs 0.65-16.40 30-39 yrs 0.16-8.43 40-49 yrs <5.20 > 49 yrs <2.05 Male: <1 yr 101.90-262.00 1-6 yrs 87.30-243.80 7-11 yrs 34.30-230.10 12-17 yrs <135.45 > 17 yrs 1.45-15.27 This test(s) was performed using a kit that has not been cleared or approved by the FDA. The analytical performance characteristics of this test have been determined by [facility] [place], [place]. This test should not be used for diagnosis without confirmation by other medically established means. Test Performed at: [facility] [place] [id number] [place] [phone] KIESHA ORTIZ MD 01/11/2013 10:2 9 AM CDT 01/11/2013 10:29 AM CDT Camacho Alvarado MD LAB - CHEMISTRY ORD ERABLES Performing Organization Address City/[facility] de Phone Number [facility] ([facility]) * LAB HISTORICAL RESULTS-ONBASE (12/29/2012) Only the most recent of3 resultswithin the time period is included. 12/29/2012 Narrative [facility] - 01/12/2013 12:58 PM CDT Camacho Alvarado MD LAB - CHEMISTRY ORD ERABLES Performing Organization Address [facility] de Phone Number [address] * FSH + LH PANEL (08/18/2012 2:58 PM CARTON MACHINE OPERATOR) Only the most recent of2 resultswithin the time period is included. FSH 7.9 mIU/mL [facility] ([facility]) Comment: Reference Range Follicular Phase 2.5-10.2 Mid-cycle Peak 3.1-17.7 Luteal Phase 1.5- 9.1 Postmenopausal 23.0-116.3 LH 2.6 mIU/mL [facility] ([facility]) Comment: Reference Range Follicular Phase 1.9-12.5 Mid-Cycle Peak 8.7-76.3 Luteal Phase 0.5-16.9 Postmenopausal 10.0-54.7 Test Performed at: [facility] [place] [address] [place] [address] GREG JACK DO,MPH 08/18/2012 2:58 PM CARTON MACHINE OPERATOR 08/18/2012 2:59 PM CARTON MACHINE OPERATOR Camacho Alvarado MD LAB - CHEMISTRY ORD ERABLES [facility] ([facility]) * FL HYSTEROSALPINGOGRAM (07/31/2012 1:21 PM CARTON MACHINE OPERATOR) Anatomical Region Laterality Modality Abdomen, Pelvis Radio Fluoroscop y 07/31/2012 1:27 PM CARTON MACHINE OPERATOR Impressions 07/31/2012 1:27 PM CARTON MACHINE OPERATOR 1. Obstruction of the left fallopian tube. Narrative 07/31/2012 1:27 PM CARTON MACHINE OPERATOR HISTORY: Fertility testing. Hysterosalpingogram, 07/31/2012. FINDINGS: Fluoroscopy was provided for imaging guidance. Following the administration of transvaginal contrast by the gynecological service, subsequent imaging demonstrates opacification of the endometrial canal as well as the right fallopian tube with reflux into the peritoneal cavity. Partial opacification of the left fallopian tube is demonstrated but again incomplete and reflux of contrast into the peritoneal cavity is not visualized through the side. Two tiny possible diverticula within the major canal may be present. Would correlate with SUBSURFACE AUGMENTEE OPERATOR report for further information. Procedure Note Markell Aguilar MD - 07/31/2012 HISTORY: Fertility testing. Hysterosalpingogram, 07/31/2012. FINDINGS: Fluoroscopy was provided for imaging guidance. Following the administration of transvaginal contrast by the gynecological service, subsequent imaging demonstrates opacification of the endometrial canal as well as the right fallopian tube with reflux into the peritoneal cavity. Partial opacification of the left fallopian tube is demonstrated but again incomplete and reflux of contrast into the peritoneal cavity is not visualized through the side. Two tiny possible diverticula within the major canal may be present. Would correlate with SUBSURFACE AUGMENTEE OPERATOR report for further information. IMPRESSION 1. Obstruction of the left fallopian tube. Camacho Alvarado MD FLUOROSCOPY ORDERAB LES * HCG URINE QUALITATIVE (07/31/2012 12:11 PM CARTON MACHINE OPERATOR) HCG Qual Urine Negative SEE BELOW [facility] Comment: Normal, Negative Pos, Sensitivity 25 MIU/ML Comment hCG Urine [facility] Comment: For optimal results, it is best to test the first urine voided in the morning because it contains the greatest concentration of hCG. URINE / Unknown 07/31/2012 1 2:11 PM CARTON MACHINE OPERATOR 07/31/2012 12:11 PM CARTON MACHINE OPERATOR Camacho Alvarado MD LAB - URINALYSIS OR DERABLES [facility] [address] [place] [address] * GROSS + MICRO EXAM (07/03/2012 10:41 AM CDT) Only the most recent of4 resultswithin the time period is included. Result CASE NUMBER [id number] Comment: ORDERING PHYSICIAN MARK CRANE SPECIMEN TYPE Cervix Biopsy-bx 03/12 oclock Date 07/03/2012 Physician Mary Crane Gross Description The specimen is received in two containers labeled Darrin Pipo. The first container is labeled cervix biopsy, 7 o'clock . It consists of a 1 mm fragment of hawkins tissue which is stained and submitted in A. The second container is labeled 12 o'clock . It is received in formalin and consists of a 1 mm fragment of hawkins tissue which is stained and submitted in B. LL/lma Microscopic Exam Microscopic examination of the cervical biopsies at 7 and 12 o'clock reveal fragments of squamous mucosa with koilocytosis. No evidence of high grade dysplasia or malignancy is identified. OAN/alj Diagnosis 1. Uterus, cervix, biopsy at 7 o'clock -- Koilocytosis -- No evidence of malignancy 2. Uterus, cervix, biopsy at 12 o'clock -- Koilocytosis -- No evidence of malignancy OAN/GM/alj Data Manager alj Pathologist Anais Latif MD CPT code 81268 x2 Performed By [facility], [facility] at [facility], [address] [place] [address] MISCELLANEOUS SAMPLES / Unknown 07/03/2012 10:41 AM CDT 07/03/2012 3:21 PM CDT Historical Provider LAB - PATHOLOGY/C YTOLOGY ORDERABLES * PROGESTERONE (06/17/2012 2:30 PM CDT) Progesterone 14.4 ng/mL [facility] INSURANCE BILL Comment: Follicular phase 0.2 - 1.5 Luteal phase 1.7 - 27.0 Ovulation phase 0.8 - 3.0 First trimester 8.8 - 48.6 Second trimester 12.4 - 75.8 Third trimester 58.5 - 222.3 Postmenopausal 0.1 - 0.8 Blood specimen (specimen) BLOOD SPECIMEN / Unknown 06/17/2012 2:30 PM CDT 06/17/2012 5:32 PM CDT Narrative Resulting Agency Comment [address] [phone] Mark Crane MD LAB - CHEMISTRY JALEN REGALADO [facility] INSURANCE BILL * (ABNORMAL) PAP IG RFLX HPV ASCU RFLX 16/18 (PO REF LAB) (06/10/2012 1:03 PM CDT) Only the most recent of2 resultswithin the time period is included. Diagnosis (A) [facility] Comment: EPITHELIAL CELL ABNORMALITY. LOW-GRADE SQUAMOUS INTRAEPITHELIAL LESION (LGSIL); MILD DYSPLASIA IS PRESENT. Recommendation (A) [facility] INSURANCE BILL Comment:Suggest follow up as clinically appropriate. Specimen Adequacy [facility] INSURANCE BILL Comment: Satisfactory for evaluation. Endocervical and/or squamous metaplastic cells (endocervical component) are present. Clinician Provided ICD9 [facility] INSURANCE BILL Comment: V72.31 ; Routine gynecological examination 626.4 ; Irregular menstrual cycle Performed by [facility] INSURANCE BILL Comment:Adamaris Martínez, Cyto technologist (ASCP) Electronically Signed by [facility] INSURANCE BILL Comment:Sandy Baltazar MD, Pathologist Comment . [facility] INSURANCE BILL Pathologist Provided ICD9 [facility] INSURANCE BILL Comment:795.03 Note [facility] INSURANCE BILL Comment: The Pap smear is [...] use of an image guided system. Note [facility] INSURANCE BILL Comment: The HPV DNA reflex [...] CYTYC Thin Prep Vial Resulting Agency Comment [facility] [phone] Mark Crane MD LAB - PATHOLOGY/CYTO LOGY ORDERABLES [facility] INSURANCE BILL * CARDIAC HOLTER MONITOR ORDER (04/23/2012 1:32 PM CDT) Narrative Transcriptions Document, Scanned - 04/23/2012 1:32 PM CDT Scanned Document CARDIAC SERVICES ORD ERABLES * HOLTER MONITOR (04/16/2012) Only the most recent of2 resultswithin the time period is included. Salvador Hector MD CARDIAC SERVICES ORDERABLES Performing Organization Address City/[facility]/ZIP Co de Phone Number [facility] RESULT SCAN * HIV-1 HIV-2 ANTIBODY (04/01/2012 4:52 PM CDT) Only the most recent of2 resultswithin the time period is included. HIV-1/HIV-2 Nonreactive Nonreactiv [facility] BLOOD SPECIMEN / Unknown 04/01/2012 4:52 PM CDT 04/01/2012 4:52 PM CDT Salvador Hector MD LAB - CHEMISTRY O RDERABLES Performing Organization Address City/[facility]/ZIP Co de Phone Number [facility] [address] [place] [address] * CORTISOL BLOOD (04/01/2012 4:52 PM CDT) Only the most recent of3 resultswithin the time period is included. Cortisol 5.42 3.09 - 22.40 ug/dl [facility] BLOOD SPECIMEN / Unknown 04/01/2012 4:52 PM CDT 04/01/2012 4:52 PM CDT Salvador Hector MD LAB - CHEMISTRY O RDERABLES Performing Organization Address City/[facility]/ZIP Co de Phone Number [facility] [address] [place] [address] * LAB MISC TEST (03/28/2012 12:44 PM CDT) Test Name HTLV I/II DNA PCR [facility] Test Result [facility] Comment: see scanned report test performed at [facility] BLOOD SPECIMEN / Unknown 03/28/2012 12:44 PM CDT 03/28/2012 12:44 PM CDT Narrative [facility] - 04/04/2012 9:32 AM CDT Performed By [facility] [employer] [address] [place] [id number] Salvador Hector MD LAB SEND OUT Performing Organization Address [facility] Co de Phone Number [facility] [address] [place] [address] * CARDIAC STRESS TEST ORDER (06/13/2011) Historical Provider CARDIAC SERVICES ORDERABLES * CARDIAC ECHOCARDIOGRAM COMPLETE ORDER (06/13/2011) Only the most recent of2 resultswithin the time period is included. Provider Unknown ECHO ORDERABLES * NATALYA BLOOD SCREEN W/REFLEX TITER (12/28/2010 7:45 AM CDT) Only the most recent of2 resultswithin the time period is included. NATALYA Negative Negative [facility] BLOOD SPECIMEN / Unknown 12/28/2010 7:45 AM CDT 12/28/2010 7:45 AM CDT Segun Mccracken MD LAB - CHEMISTRY JALEN REGALADO Performing Organization Address City/[facility]/ZIP Co de Phone Number [facility] [address] [place] [address] * CD4 (ABSOLUTE T4) (12/28/2010 7:45 AM CDT) [facility] CD4 (T-[place]) Absolute 925 410 - 1800 no./uL [facility] CD4% 58 30 - 66 % [facility] Comment Ref Lab [facility] Comment: Comments and Normal Ranges for Component *CD4/CD3, Percent(%) TEST INFORMATION/ CD4 Percent and Absolute Count In this test, the CD4 cells are [place] T-cells because they express both CD3 and CD4. [place] T-cell levels are a criterion for categorizing HIV-related clinical conditions by the CDC's classification system for HIV infection. The measurement of [place] T-cell levels has been used to establish decision points for initiating P. jiroveci prophylaxis, antiviral therapy and to monitor the efficacy of treatment. The Public Health Service (PHS) has recommended that [place] T-cell levels be monitored every three to six months in all HIV-infected persons. The performance characteristics of this test were determined by [facility]. BLOOD SPECIMEN / Unknown 12/28/2010 7:45 AM CDT 12/28/2010 7:45 AM CDT Narrative Resulting Agency Comment Performed By [facility] [address] [place] [address] Segun Mccracken MD LAB - HEMATOLOGY ORD ERABLES Performing Organization Address City/[facility] Co de Phone Number [facility] [address] [place] [address] * BLOOD TYPE ABO+ RH PANEL (12/28/2010 7:45 AM CDT) [facility] ABO Rh O Pos SEE BELOW [facility] Comment: Weak D testing is not performed at [facility] Previous History Check Done No historical blood type. Blood type confirmation needed prior to transfusion. [facility] BLOOD SPECIMEN / Unknown 12/28/2010 7:45 AM CDT 12/28/2010 7:45 AM CDT Segun Mccracken MD LAB - BLOOD BANK ORD ERABLES Performing Organization Address City/[facility] Co de Phone Number [facility] [address] [place] [id number] * MICROALBUMIN URINE RANDOM (10/31/2010 2:51 PM CARTON MACHINE OPERATOR) Microalbumin Urine <0.30 mg/dl [facility] Volume 24 Hour Urine random ml [facility] URINE SPECIMEN OBTAINED BY CLEAN CATCH PROCEDURE / Unknown 10/31/2010 2:51 PM CARTON MACHINE OPERATOR 10/31/2010 2:51 PM CARTON MACHINE OPERATOR Salvador Hector MD LAB - URINE CHEMI STRY ORDERABLES Performing Organization Address [facility] de Phone Number [facility] [address] [place] [address] * URINALYSIS ROUTINE AUTO (10/31/2010 2:51 PM CARTON MACHINE OPERATOR) Source Random [facility] Color UA Yellow [facility] Character UA Clear [facility] Glucose UA NEGATIVE NEGATIVE mg/dl [facility] Bilirubin UA NEGATIVE NEGATIVE [facility] Ketone UA NEGATIVE NEGATIVE mg/dl [facility] Specific [place] UA 1.010 1.003 - 1.030 [facility] Blood UA NEGATIVE NEGATIVE [facility] pH UA 7.0 5.0 - 9.0 [facility] Protein UA NEGATIVE NEGATIVE-TRA CE mg/dl [facility] Urobilinogen UA 0.2 0.2 - 1.0 Noam Units/dl [facility] Nitrite UA NEGATIVE NEGATIVE [facility] Leukocyte UA NEGATIVE NEGATIVE [facility] URINE SPECIMEN OBTAINED BY CLEAN CATCH PROCEDURE / Unknown 10/31/2010 2:51 PM CARTON MACHINE OPERATOR 10/31/2010 2:51 PM CARTON MACHINE OPERATOR Salvador Hector MD LAB - URINALYSIS ORDERABLES Performing Organization Address [facility] de Phone Number [facility] [address] [place] [phone] * T3 FREE (10/31/2010 2:51 PM CARTON MACHINE OPERATOR) T3 Free 2.83 2.3 - 4.2 pg/ml [facility] BLOOD SPECIMEN / Unknown 10/31/2010 2:51 PM CARTON MACHINE OPERATOR 10/31/2010 2:51 PM CARTON MACHINE OPERATOR Salvador Hector MD LAB - CHEMISTRY O RDERABLES Performing Organization Address [facility] de Phone Number [facility] [address] [place] [phone] * TSH (10/31/2010 2:51 PM CARTON MACHINE OPERATOR) TSH 1.148 0.55 - 4.78 uIU/ml [facility] BLOOD SPECIMEN / Unknown 10/31/2010 2:51 PM CARTON MACHINE OPERATOR 10/31/2010 2:51 PM CARTON MACHINE OPERATOR Salvador Hector MD LAB - CHEMISTRY O RDERAABY Performing Organization Address [facility] de Phone Number [facility] [address] [place] [phone] * T4 TOTAL (10/31/2010 2:51 PM CARTON MACHINE OPERATOR) T4 Total 9.3 4.5 - 10.9 ug/dl [facility] BLOOD SPECIMEN / Unknown 10/31/2010 2:51 PM CARTON MACHINE OPERATOR 10/31/2010 2:51 PM CARTON MACHINE OPERATOR Salvador Hector MD LAB - CHEMISTRY O JALEN Performing Organization Address [facility] de Phone Number [facility] [address] [place] [address] * ECHOCARDIOGRAM 2D WITH DOPPLER (10/31/2010 2:00 PM CARTON MACHINE OPERATOR) 10/31/2010 2:00 PM CARTON MACHINE OPERATOR Narrative [facility] - 11/01/2010 4:34 PM CARTON MACHINE OPERATOR [address] [address] Transthoracic Echocardiogram 2D, M-mode, Doppler, and Color Doppler Patient: PIPO THAPA MR number: [id number] Height: 66 in Weight: 150 lb BSA: 1.77 m Study date: 31-Oct-2010 : 1970 Age: 39 years Gender: Female Race: N Allergies: PENICILLIN Referring Physician: Salvador Hector MD Coarse Wire Drawer: Sriram Palma RDCS Reading Physician: Stef Bergman MD Summary: - Clinical question: - ATRIAL SEPTAL DEFECT - History: - FATIGUE, FIBROMYLAGIA - Left ventricle: - Ejection fraction was estimated to be 65 %. - There were no regional wall motion abnormalities. - Wall thickness was normal. - Doppler parameters were consistent with abnormal left ventricular relaxation (grade 1 diastolic dysfunction). Indications: ATRIAL SEPTAL DEFECT History: Prior history: FATIGUE, FIBROMYLAGIA Procedure: The study was performed in the OP. This was a routine study. The transthoracic approach was used. The study included complete 2D imaging, M-mode, complete spectral Doppler, and color Doppler. Left ventricle: Size was normal. Ejection fraction was estimated to be 65 %. There were no regional wall motion abnormalities. Wall thickness was normal. Doppler: Doppler parameters were consistent with abnormal left ventricular relaxation (grade 1 diastolic dysfunction). Aortic valve: The valve was trileaflet. Leaflets exhibited normal thickness and normal cuspal separation. Doppler: Transaortic velocity was within the normal range. There was no stenosis. There was no regurgitation. Aorta: The root exhibited normal size. Mitral valve: Valve structure was normal. There was normal leaflet separation. Doppler: The transmitral velocity was within the normal range. There was no evidence for stenosis. There was no regurgitation. Left atrium: Size was normal. Right ventricle: The size was normal. Systolic function was normal. Wall thickness was normal. Tricuspid valve: The valve structure was normal. There was normal leaflet separation. Doppler: The transtricuspid velocity was within the normal range. There was no evidence for tricuspid stenosis. There was no regurgitation. Right atrium: Size was normal. Pericardium: There was no pericardial effusion. The pericardium was normal in appearance. Measurement tables 2D measurements Left ventricle (Reference normals) LVID ed, PLAX 41 mm (35-60) LVID es, PLAX 29 mm (21-40) FS, PLAX 29.27 % (25-46) LVPW thickness ed 8 mm (6-11) Ratio, IVS/LVPW 0.88 (<1.3) Ventricular septum (Reference normals) IVS thickness ed 7 mm (6-11) LVOT (Reference normals) Diam 21 mm (--) Aorta (Reference normals) Root diam 22 mm (--) Left atrium (Reference normals) AP dim 26 mm (--) AP dim index 1.47 cm/m (<2.2) LA/Ao root ratio 1.18 (--) Doppler measurements LVOT (Reference normals) Peak vignesh 93 cm/s (--) Aortic valve (Reference normals) Peak vignesh 114 cm/s (--) Obstr index, Vmax 0.82 (--) Area index, Vmax 1.6 cm /m (--) Other echo measurements (Reference normals) Estimated CVP 5 mmHg (--) Prepared and signed by tSef Bergman MD Signed 01-Nov-2010 16:34:17 Procedure Note 11/01/[address] [id number] Transthoracic Echocardiogram 2D, M-mode, Doppler, and Color Doppler Patient: PIPO THAPA MR number: [id number] Height: 66 in Weight: 150 lb BSA: 1.77 m Study date: 31-Oct-2010 : 1970 Age: 39 years Gender: Female Race: N Allergies: PENICILLIN Referring Physician: Salvador Hector MD Coarse Wire Drawer: Sriram Palma RDCS Reading Physician: Stef Bergman MD Summary: - Clinical question: - ATRIAL SEPTAL DEFECT - History: - FATIGUE, FIBROMYLAGIA - Left ventricle: - Ejection fraction was estimated to be 65 %. - There were no regional wall motion abnormalities. - Wall thickness was normal. - Doppler parameters were consistent with abnormal left ventricular relaxation (grade 1 diastolic dysfunction). Indications: ATRIAL SEPTAL DEFECT History: Prior history: FATIGUE, FIBROMYLAGIA Procedure: The study was performed in the OP. This was a routine study. The transthoracic approach was used. The study included complete 2D imaging, M-mode, complete spectral Doppler, and color Doppler. Left ventricle: Size was normal. Ejection fraction was estimated to be 65 %. There were no regional wall motion abnormalities. Wall thickness was normal. Doppler: Doppler parameters were consistent with abnormal left ventricular relaxation (grade 1 diastolic dysfunction). Aortic valve: The valve was trileaflet. Leaflets exhibited normal thickness and normal cuspal separation. Doppler: Transaortic velocity was within the normal range. There was no stenosis. There was no regurgitation. Aorta: The root exhibited normal size. Mitral valve: Valve structure was normal. There was normal leaflet separation. Doppler: The transmitral velocity was within the normal range. There was no evidence for stenosis. There was no regurgitation. Left atrium: Size was normal. Right ventricle: The size was normal. Systolic function was normal. Wall thickness was normal. Tricuspid valve: The valve structure was normal. There was normal leaflet separation. Doppler: The transtricuspid velocity was within the normal range. There was no evidence for tricuspid stenosis. There was no regurgitation. Right atrium: Size was normal. Pericardium: There was no pericardial effusion. The pericardium was normal in appearance. Measurement tables 2D measurements Left ventricle (Reference normals) LVID ed, PLAX 41 mm (35-60) LVID es, PLAX 29 mm (21-40) FS, PLAX 29.27 % (25-46) LVPW thickness ed 8 mm (6-11) Ratio, IVS/LVPW 0.88 (<1.3) Ventricular septum (Reference normals) IVS thickness ed 7 mm (6-11) LVOT (Reference normals) Diam 21 mm (--) Aorta (Reference normals) Root diam 22 mm (--) Left atrium (Reference normals) AP dim 26 mm (--) AP dim index 1.47 cm/m (<2.2) LA/Ao root ratio 1.18 (--) Doppler measurements LVOT (Reference normals) Peak vignesh 93 cm/s (--) Aortic valve (Reference normals) Peak vignesh 114 cm/s (--) Obstr index, Vmax 0.82 (--) Area index, Vmax 1.6 cm /m (--) Other echo measurements (Reference normals) Estimated CVP 5 mmHg (--) Prepared and signed by Stef Bergman MD Signed 01-Nov-2010 16:34:17 Salvador Hector MD ECHO ORDERABLES [facility] [address] [place] [address] * XR WRIST 3+ VW LEFT (04/13/2010 3:48 PM CDT) Anatomical Region Laterality Modality Wrist / Hand Radiographic Pati ging 04/13/2010 4:14 PM CDT Impressions 04/13/2010 4:14 PM CDT No abnormality identified. Narrative 04/13/2010 4:14 PM CDT Left wrist: HISTORY: Pain, post fall. Three views of the left wrist are obtained. There is no fracture, dislocation or bone erosion seen. Procedure Note Sarah Elder MD - 04/13/2010 Left wrist: HISTORY: Pain, post fall. Three views of the left wrist are obtained. There is no fracture, dislocation or bone erosion seen. IMPRESSION No abnormality identified. 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
--- OUTSIDE RECORDS SUMMARY | 2024-10-18 15:26 | XMS_ITS | Referral Summary ---
Author Organization [facility] Address [address] [place] [place] [address] Care Team Providers Care Med Aide Name Role Phone Salvador Hector MD Primary Care Provider [phone] Segun Mccracken MD Unavailable [phone] Fer Jaquez MD Unavailable [phone] [facility],non-owned Affiliates and Associated Physician Practices is amultiple site organization consisting of ambulatory clinics and hospital sitesin [place], [place], [place] and [place]. This disclosure is being madepursuant to the Care Everywhere program and may not contain all information available regarding this patient. Last updated 18.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 Sexual Orientation Not on file Last Filed Vital Signs Vital Sign Reading Time Taken Comments Blood Pressure 100/70 09/23/2018 10:06 AM DIRECTOR OF EMAIL MARKETING Pulse 97 09/23/2018 10:06 AM DIRECTOR OF EMAIL MARKETING Temperature 36.5 C (97.7 F) 07/01/2011 12:39 PM CDT Respiratory Rate 16 09/23/2018 10:06 AM DIRECTOR OF EMAIL MARKETING Oxygen Saturation 98% 09/23/2018 10:06 AM DIRECTOR OF EMAIL MARKETING Inhaled Oxygen Concentration - - Weight 76.7 kg (169 lb) 09/23/2018 10:06 AM DIRECTOR OF EMAIL MARKETING Height 167.6 cm (5' 6 ) 09/23/2018 10:06 AM DIRECTOR OF EMAIL MARKETING Body Mass Index 27.28 09/23/2018 10:06 AM DIRECTOR OF EMAIL MARKETING Plan of Treatment Not on file Goals Goal Patient Goal Type Associated Problems Recent Progress Patient-Stated? Author Quit smoking / using tobacco Lifestyle On track( 015 1:34 PM CDT) Radha Abreu MA Procedures Procedure Name Priority Date/Time Associated Diagnosis Comments COMPREHENSIVE METABOLIC PANEL 09/09/2018 2:31 PM DIRECTOR OF EMAIL MARKETING HEPATITIS C AB W/RFLX TO HCV RNA QN PCR Routine 09/09/2018 2:31 PM DIRECTOR OF EMAIL MARKETING Pustulosis palmaris et plantaris Encounter for long-term [...] HCV RNA QN PCR (09/09/2018 2:31 PM DIRECTOR OF EMAIL MARKETING) Hepatitis C Antibody NON-REACTI VE NON-REACT TIN [facility] Signal to Cut-Off 0.01 <1.00 [facility] Comment: REPORT COMMENT: FASTING:NO Test Performed at: [facility] [address] [place] [address] GREG JACK DO,MPH Blood BLOOD SPECIMEN / Unknown 09/09/2018 2:31 PM DIRECTOR OF EMAIL MARKETING 09/09/2018 2:32 PM DIRECTOR OF EMAIL MARKETING Mark Vogt MD LAB - CHEMISTRY JALEN REGALADO [facility] Organization Address City/State/ZIP Co de Phone Number [facility] [address] [place] [address] * COMPREHENSIVE METABOLIC PANEL (09/09/2018 2:31 PM DIRECTOR OF EMAIL MARKETING) Pathologist [facility] Glucose 73 65 - 139 mg/dL [facility] [...] 29 U/L [facility] Comment: Test Performed at: [facility] [address] [place] [address] GREG JACK DO,MPH 09/09/2018 2:31 PM DIRECTOR OF EMAIL MARKETING 09/09/2018 2:32 PM DIRECTOR OF EMAIL MARKETING Mark Vogt MD LAB - CHEMISTRY JALEN REGALADO Performing Organization Address City/State/[facility] Co de Phone Number [facility] [address] [place] [address] * MAMMOGRAPHY ORDER (02/21/2016) Anatomical Region Laterality Modality Other Salvador Hector MD MAMMO ORDERABLES * (ABNORMAL) PAP IG RFLX HPV ASCU RFLX 16/18 (PO REF LAB) (06/10/2012 1:03 PM CDT) Diagnosis (A) [facility] INSURANCE BILL Comment: EPITHELIAL CELL ABNORMALITY. LOW-GRADE SQUAMOUS INTRAEPITHELIAL LESION (LGSIL); MILD DYSPLASIA IS PRESENT. Recommendation (A) [facility] INSURANCE BILL Comment:Suggest follow up as clinically appropriate. Specimen Adequacy [facility] INSURANCE BILL Comment: Satisfactory for evaluation. Endocervical and/or squamous metaplastic cells (endocervical component) are present. Clinician Provided ICD9 [facility] INSURANCE BILL Comment: V72.31 ; Routine gynecological examination 626.4 ; Irregular menstrual cycle Performed by [facility] INSURANCE BILL Comment:Adamaris Martínez, Cyto technologist (ASCP) Electronically Signed by [facility] INSURANCE BILL Comment:Sandy Baltazar MD, Pathologist Comment [...] CYTYC Thin Prep Vial Resulting Agency Comment [address] [place] [id number] Mark Ayoub MD LAB - PATHOLOGY/CYTO LOGY ORDERABLES [facility] INSURANCE BILL * HIV-1 HIV-2 ANTIBODY (04/01/2012 4:52 PM CDT) HIV-1/HIV-2 Nonreactive Nonreactiv [facility] BLOOD SPECIMEN / Unknown 04/01/2012 4:52 PM CDT 04/01/2012 4:52 PM CDT Salvador Hector MD LAB - CHEMISTRY O RDERABLES [facility] [address] [place] [address] from Last 3 Months or Most Recently Relevant to Health Maintenance Administered Medications Care Teams Med Aide Relationship Specialty Start Date End Date Salvador Hector MD [address] [facility] [address], [place] [id number] PCP - General 05/17/09 Segun Mccracken MD [address] [facility] [address] [place] [address] Infectious Disease 11/24/13 Fer Jaquez MD [address] [facility] [address] [place] [address] Cardiology 01/12/16
--- OUTSIDE RECORDS SUMMARY | 2024-10-18 15:26 | XMS_ITS | Encounter Summary ---
Author Organization [facility] Address [address] [place] [address] Care Team Providers Care Family Therapist Name Role Phone Salvador Hector MD Primary Care Provider [phone] Segun Mccracken MD Unavailable [phone] Fer Jaquez MD Unavailable [phone] Encounter Details Date Type Department Care Team (Late st Contact Info) Description 06/10/2012 [facility] Outpatient Visit [facility] [address] [place] [address] [address] [place], [place] [phone] Pedrito Thomson MD [address] [place] [address] [facility] [address] [place] [address] Social History Tobacco Use Types Packs/Day Years Used Date Smoking Tobacco: Every Day Cigarettes Last attempted to quit: 03/16/2009 Alcohol Use Standard Drinks/Week Comments No 0 (1 standard drink = 0.6 oz pur e alcohol) Sex and Gender Information Value Date Recorded Sex Assigned at Not on file Gender Identity Female 08/05/2017 9:52 AM 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
== END 2024-10-18 12:56 | disposition home or self-care (01) ==
LOC: CHSIMG 12:59
PROVIDERS: PCP Nurse Practitioner Family; Visit Provider Nurse Practitioner Family
DX: Z12.31 Encounter for screening mammogram for malignant neoplasm of breast (principal)
CPT/HCPCS: 77063; 77067

== ENCOUNTER 2024-10-27 00:02 | Day surgery (SDC) | payer OTHER, SELFPAY ==
[2024-10-14 11:52] VITALS: BMI 24.2
--- OUTSIDE RECORDS SUMMARY | 2024-10-27 00:05 | XMS_ITS | Patient Health Summary ---
Author Organization [facility] Address [address] [facility] [place] [address] Care Team Providers Care Watch Inspector Final Movement Name Role Phone Salvador Hector MD Primary Care Provider [phone] Segun Mccracken MD Unavailable [phone] Fer Jaquez MD Unavailable [phone] Note from [facility],non-owned Affiliates and Associated Physician Practices is amultiple site organization consisting of ambulatory clinics and hospital sitesin [place], [place]. This disclosure is being madepursuant to the Care Everywhere program and may not contain all information available regarding this patient. Last updated 18.[facility] Allergies * Adhesive Sensitivity(Rash) -Medium Criticality * [...] file Gender Identity Female 08/05/2017 9:52 AM FACETOR Sexual Orientation Not on file Last Filed Vital Signs Vital Sign Reading Time Taken Comments Blood Pressure 100/70 09/23/2018 10:06 AM FACETOR Pulse 97 09/23/2018 10:06 AM FACETOR Temperature 36.5 C (97.7 F) 07/01/2011 12:39 PM CDT Respiratory Rate 16 09/23/2018 10:06 AM FACETOR Oxygen Saturation 98% 09/23/2018 10:06 AM FACETOR Inhaled Oxygen Concentration - - Weight 76.7 kg (169 lb) 09/23/2018 10:06 AM FACETOR Height 167.6 cm (5' 6 ) 09/23/2018 10:06 AM FACETOR Body Mass Index 27.28 09/23/2018 10:06 AM FACETOR Procedures * CBC W AUTO DIFFERENTIAL(Performed 11/25/2018) Performed for Encounter for long-term current use of high risk medication * HEPATIC FUNCTION PANEL(Performed 11/25/2018) Performed for Encounter for long-term current use of high risk medication * MT DESTRUCT BENIGN LESION, 1-14(Performed 10/09/2018) Performed for [...] current use of high risk medication * MT DESTRUCT BENIGN LESION, 1-14(Performed 09/04/2018) Performed for [...] 04/16/2012) Performed for ASD (atrial septal defect) ([facility]) * MAMMO BILAT SCREENING(Performed 04/02/2012) Performed for [...] CARD W/1ST ORDER FASTING:NO Test Performed at: [facility] [address] [place] [address] GREG JACK DO,MPH Blood BLOOD SPECIMEN / Unknown 11/25/2018 2:27 PM CDT 11/25/2018 2:27 PM CDT Mark Vogt MD LAB - HEMATOLOGY ORD ERABLES Performing Organization Address [facility] Co de Phone Number [facility] [address] [place] [address] * HEPATIC FUNCTION PANEL (11/25/2018 2:24 PM [...] Comment: REPORT COMMENT: FASTING:NO Test Performed at: [facility] [address] [place] [address] GREG JACK DO,MPH Blood BLOOD SPECIMEN / Unknown 11/25/2018 2:24 PM CDT 11/25/2018 2:25 PM CDT Mark Vogt MD LAB - CHEMISTRY ORDE RABAMANDA Performing Organization Address [facility] Co de Phone Number [facility] [address] [place] [address] * EARLY SJOGREN'S SYNDROME PROFILE (10/09/2018 3:43 PM FACETOR) Salivary Protein 1 Antibody IgG <1.0 EU/ml [...] in primary sjogren's syndrome. J Immunol; 185: 2414-7922. Philippe Delgadillo et al. (2012). Novel autoantibodies in Sjogren's syndrome. Clinical Immunology; 145, 251-255. *This test has been developed and performance parameters have been validated by [employer] This test has not been approved by the U.S. Food and Drug Administration (FDA); however, US FDA approval is not required for clinical use. It is not intended that clincal diagnosis and patient management decisions be made using these results alone. This test has been validated using serum samples. The dry house attendant has not determined the efficacy of this test when performed on CSF, plasma, joint or pleural fluid specimens. The performance characteristics of this test were determined by [employer] REPORT COMMENT: NO DRAW FEE 3RD ORDER, COPY OF INS CARD W/1ST ORDER FASTING:NO Test Performed at: [facility] [address] [place] [phone] HENRY SINGH,PHD Blood BLOOD SPECIMEN / Unknown 10/09/2018 3:43 PM FACETOR 10/09/2018 3:46 PM FACETOR Brooks Sweeney MD LAB - SEROLOGY ORD ERABLES [facility] [address] [place] [address] * NATALYA PANEL COMPREHENSIVE (10/09/2018 3:34 PM FACETOR) NATALYA Screen NEGATIVE NEGATIVE [facility] Comment: NATALYA IFA is a first line screen for detecting the presence of up to approximately 150 autoantibodies in various autoimmune diseases. A negative NATALYA IFA result suggests NATALYA-associated autoimmune diseases are not present at this time. Visit Physician FAQs for interpretation of all antibodies in the [place], prevalence, and association with diseases at http://[email or web address]/ [email or web address] dsDNA Antibody <1 IU/mL [facility] Comment: IU/mL Interpretation < or = 4 Negative 5-9 Indeterminate > or = 10 Positive SCL-70 Antibody <1.0 NEG <1.0 NEG AI [facility] SM Antibody <1.0 NEG <1.0 NEG AI [facility] SM/MECHANICAL PROJECT ENGINEER Antibody <1.0 NEG <1.0 NEG AI [facility] Sjogren's Antibodies (SSA) <1.0 NEG <1.0 NEG AI [facility] Sjogren's Antibodies (SSB) <1.0 NEG <1.0 NEG AI [facility] Comment: Test Performed at: [facility] [address] [facility] [place] [place] [address] GREG JACK DO,MPH Blood BLOOD SPECIMEN / Unknown 10/09/2018 3:34 PM FACETOR 10/09/2018 3:42 PM FACETOR Brooks Sweeney MD LAB - SEROLOGY ORD ERABLES Performing Organization Address [facility] de Phone Number [facility] [address] [place] [address] * C-REACTIVE PROTEIN (10/09/2018 3:34 PM FACETOR) Only the most recent of4 resultswithin the time period is included. C-Reactive Protein 0.5 <8.0 mg/L [facility] Comment: Test Performed at: [facility] [address] [facility] [place] [address] GREG JACK DO,MPH Blood BLOOD SPECIMEN / Unknown 10/09/2018 3:34 PM FACETOR 10/09/2018 3:42 PM FACETOR Brooks Sweeney MD LAB - CHEMISTRY OR DERABLES Performing Organization Address [facility] Co de Phone Number [facility] [address] [place] [address] * HLA TYPING B27 (10/09/2018 3:34 PM FACETOR) HLA-B27 Antigen NEGATIVE NEGATIVE [facility] Comment: Test Performed at: [facility] [address] [place] [address] RACHELLE DAVIS MD,PHD,SANDI Blood BLOOD SPECIMEN / Unknown 10/09/2018 3:34 PM FACETOR 10/09/2018 3:42 PM FACETOR Brooks Sweeney MD LAB - CHEMISTRY OR DERABLES Performing Organization Address [facility] [place] [address] * ALDOLASE (10/09/2018 3:34 PM FACETOR) Aldolase 4.2 < OR = 8.1 U/L [facility] Comment: REPORT COMMENT: NO DRAW FEE 2ND ORDER COPY OF INS CARD W/1ST ORDER FASTING:NO Test Performed at: [employer] [employer] [address] GREG JACK DO,MPH Blood BLOOD SPECIMEN / Unknown 10/09/2018 3:34 PM FACETOR 10/09/2018 3:42 PM FACETOR Brooks Sweeney MD LAB - CHEMISTRY OR DERABLES Performing Organization Address [facility] [place] [address] * ERYTHROCYTE SEDIMENTATION RATE (10/09/2018 3:34 PM FACETOR) Only the most recent of3 resultswithin the time period is included. Erythrocyte Sedimentation Rate Westergren 6 < OR = 20 mm/h [facility] Comment: Test Performed at: [employer] [employer] [address] GREG JACK DO,MPH Blood BLOOD SPECIMEN / Unknown 10/09/2018 3:34 PM FACETOR 10/09/2018 3:42 PM FACETOR Brooks Sweeney MD LAB - HEMATOLOGY O RDERABLES Performing Organization Address [facility] [place] [address] * CK BLOOD (10/09/2018 3:34 PM FACETOR) CK 47 29 - 143 U/L [facility] Comment: Test Performed at: [facility] [address] [employer], [employer] [address] GREG JACK DO,MPH Blood BLOOD SPECIMEN / Unknown 10/09/2018 3:34 PM FACETOR 10/09/2018 3:42 PM FACETOR Brooks Sweeney MD LAB - CHEMISTRY OR DERABLES Performing Organization Address [facility] [place] [address] * COMPLEMENT C3 C4 PANEL (10/09/2018 3:34 PM FACETOR) [facility] [address] Complement C3 117 83 - 193 mg/dL [facility] Complement C4 24 15 - 57 mg/dL [facility] Comment: Test Performed at: [facility] [place] [address] GREG JACK DO,MPH Blood BLOOD SPECIMEN / Unknown 10/09/2018 3:34 PM FACETOR 10/09/2018 3:42 PM FACETOR Brooks Sweeney MD LAB - CHEMISTRY OR DERABLES Performing Organization Address [facility] [place] [address] * HEPATITIS C AB W/RFLX TO HCV RNA QN PCR (09/09/2018 2:31 PM FACETOR) [facility] [address] Hepatitis C Antibody NON-REACTI VE NON-REACT TIN [facility] Signal to Cut-Off 0.01 <1.00 [facility] Comment: REPORT COMMENT: FASTING:NO Test Performed at: [facility] [id number] [address] GREG JACK DO,MPH Blood BLOOD SPECIMEN / Unknown 09/09/2018 2:31 PM FACETOR 09/09/2018 2:32 PM FACETOR Mark Vogt MD LAB - CHEMISTRY JALEN REGALADO Performing Organization Address [facility] [place] [address] * COMPREHENSIVE METABOLIC PANEL (09/09/2018 2:31 PM FACETOR) Only the most recent of6 resultswithin the time period is included. [facility] [address] Glucose 73 65 - 139 mg/dL [facility] [...] 29 U/L [facility] Comment: Test Performed at: [facility] [address] GREG JACK DO,MPH 09/09/2018 2:31 PM FACETOR 09/09/2018 2:32 PM FACETOR Mark Vogt MD LAB - CHEMISTRY JALEN REGALADO Performing Organization Address [facility] Co de Phone Number [facility] [address] [place] [address] * HEPATITIS B SURFACE ANTIBODY (09/09/2018 2:31 PM FACETOR) Hepatitis B Virus Surface Antibody NON-REACTI VE NON-REACT TIN [facility] Comment: Test Performed at: [facility] [address] [employer] [address] GREG JACK DO,MPH 09/09/2018 2:31 PM FACETOR 09/09/2018 2:32 PM FACETOR Mark Vogt MD LAB - CHEMISTRY JALEN REGALADO [facility] [address] [place] [address] * HEPATITIS B CORE ANTIBODY (09/09/2018 2:31 PM FACETOR) Hepatitis B Core Virus Antibody Total NON-REACTI VE NON-REACT TIN [facility] Comment: Test Performed at: [facility] [address] GREG JACK DO,MPH Blood BLOOD SPECIMEN / Unknown 09/09/2018 2:31 PM FACETOR 09/09/2018 2:32 PM FACETOR Mark Vogt MD LAB - CHEMISTRY JALEN REGALADO Performing Organization Address City/[facility]/ZIP Co de Phone Number [facility] [id number] [place] [address] * HEPATITIS B SURFACE ANTIGEN W RFLX CONFIRMATION (09/09/2018 2:31 PM FACETOR) Hepatitis B Virus Surface Antigen NON-REACTI VE NON-REACT TIN [facility] Comment: Test Performed at: [facility] [address] GREG JACK DO,MPH 09/09/2018 2:31 PM FACETOR 09/09/2018 2:32 PM FACETOR Mark Vogt MD LAB - CHEMISTRY JALEN REGALADO Performing Organization Address [facility] Co de Phone Number [facility] [id number] [place] [address] * AMB REFERRAL TO RHEUMATOLOGY (10/02/2016 4:23 PM FACETOR) Lesley Bass MD OUTPATIENT REFERRAL S * MRI SPINE CERVICAL NON CONTRAST (09/27/2016 4:54 PM FACETOR) Anatomical Region Laterality Modality Pelvis Magnetic Resonan ce 09/28/2016 8:07 AM FACETOR Impressions 09/28/2016 8:40 AM FACETOR 1. Mild degenerative disc changes. 2. C4-5 mild posterior annular bulge/spondylitic change without stenosis. Edited by Venus Lehman on 09/28/2016 8:16 AM Narrative 09/28/2016 8:40 AM FACETOR MRI CERVICAL SPINE WITHOUT CONTRAST CLINICAL INDICATION: [...] MRI BRAIN NON CONTRAST (09/27/2016 4:54 PM FACETOR) Anatomical Region Laterality Modality Head Magnetic Resonan ce 09/28/2016 8:10 AM FACETOR Impressions 09/28/2016 8:40 AM FACETOR Unremarkable MRI examination of the brain. Edited by Venus Lehman on 09/28/2016 8:18 AM Narrative 09/28/2016 8:40 AM FACETOR MRI BRAIN WITHOUT CONTRAST Indication: Polyneuropathy and [...] by Venus Lehman on 09/28/2016 8:18 AM Lesley Bass MD [...] PM CDT Narrative Resulting Agency Comment [facility] [address] [facility] [phone] Lesley Bass MD LAB - SEROLOGY JALEN REGALADO [facility] ACCOUNT BILL [address] [place] [address] * BARTONELLA ANTIBODY PANEL (02/08/2016 12:56 PM [...] developed and its performance characteristics determined by [employer]. It has not been cleared or approved by the Food and Drug Administration. The FDA has determined that such clearance or approval is not necessary. Blood specimen (specimen) BLOOD SPECIMEN / Unknown 02/08/2016 12:56 PM CDT 02/08/2016 5:16 PM CDT Narrative Resulting Agency Comment [facility] [place] [id number] [facility] [phone] Lesley Bass MD LAB - SEROLOGY JALEN REGALADO [facility] ACCOUNT BILL [address] [place] [address] * BORRELIA RELAPSING FEVER PANEL (02/08/2016 12:56 [...] analytical performance characteristics have been determined by [employer]. It has not been cleared or approved by the U.S. Food and Drug Administration. The FDA has determined that such clearance or approval is not necessary. This assay has been validated pursuant to the CLIA regulations and is used for clinical purposes. Blood specimen (specimen) BLOOD SPECIMEN / Unknown 02/08/2016 12:56 PM CDT 02/08/2016 5:16 PM CDT Narrative Resulting Agency Comment [employer] [facility] [address] [facility] [id number] Lesley Bass MD LAB - SEROLOGY JALEN REGALADO Performing Organization Address City/[facility]/ZIP Co de Phone Number [facility] ACCOUNT BILL [address] [place] [address] * LIPID PROFILE (02/01/2016 1:00 PM CDT) [...] PM CDT Narrative Resulting Agency Comment [facility] [address] [facility] [phone] Fer Jaquez MD LAB - CHEMISTRY JALEN REGALADO [facility] Organization Address City/State/ZIP Co de Phone Number [facility] ACCOUNT BILL [address] [place] [address] * PATHOLOGY/CYTOLOGY REPORT ORDER (12/15/2015) Scanned Document LAB - PATHOLOGY/CYTO LOGY ORDERABLES * NERVE CONDUCTION TEST (11/28/2015 8:13 AM CDT) Narrative Ganesh Lau MD - 11/28/2015 8:13 AM CDT Ganesh Lau MD 11/28/2015 8:13 AM [facility] [address] [place] [address]. [address] [place] [address] Patient: Pipo Thapa V #: Physician: Ganesh Lau M.D. Sex: Female ID#: [id number] Ref Phys: Lesley Bass M.D. : 1970 Date: 11/27/2015 Human Resource Assistant: Sydnie Coello LPN Patient History: Patient is [...] SPECT STRESS AND REST (10/19/2015 3:07 PM FACETOR) Anatomical Region Laterality Modality Chest Nuclear Digisoni cs 10/19/2015 12:2 3 PM FACETOR Narrative Procedure Note Yanelis Givens MD - 10/19/2015 [address] [facility]. [address] [place] [address] Arledia/heart Nuclear Myocardial Perfusion Scan Report Pat.Name: PIPO THAPA Pat.ID: [id number] .Date: 10/19/2015 Refer.MD: Salvador Hcetor MD Exam Time: 12:23:00 PM Study Type:Nuclear Myocardial Perfusion Scan Height: 167.64cm Weight: 72.27kg BSA: 1.82 m2 Age: 4 1970,44Y Sex: FEMALE Sonogrphr: MORGAN Vo Reason for Study:Chest pain- occasional History / Clinical:Fibromyalgia, Unable to achieve with HR with treadmill and dobutamine stress tests Procedures:Lexiscan Perfusion Scan, Gated Stress Visit ID: [id number] Nurse: CLARK Oliveira Risk Factors:Hypercholesterolemia, Family history, [...] 0.4 mg HR: 98 BP: 86/62 QRS [place]: 0.35 deg Stress Test Results: Symptoms and Complications: Arrhythmias: None Terminated: Protocol completed Symptoms: Fatigue, Dizziness, Headache Conclusions: Normal heart rate response to pharmacological stress., Baseline hypotension, slightly lower with lexiscan, back to baseline. Stress ECG Interp: No ischemic S-T changes during lexiscan infusion. Signed 10/19/2015 04:41 PM Emma Givens MD, [facility] Fer Jaquez MD NM ORDERABLES * ECG STRESS TRACING (10/17/2015 10:06 AM FACETOR) Only the most recent of2 resultswithin the [...] Physician: Eve Ferrell ANP-Jeffrey Referred By: salvador VALERA [facility] Overread By: FAYE GIVENS MD [facility] STRESS 10/17/2015 10:0 6 AM FACETOR 10/24/2015 8:18 AM FACETOR Fer Jaquez MD CARDIAC SERVICES ORD ERABLES [facility] STRESS * ECHOCARDIOGRAM STRESS Dobutamine (resting) Echocardiogram (10/17/2015 10:04 AM FACETOR) 10/17/2015 10:0 4 AM FACETOR Narrative [facility] CARDIOLOGY - 10/18/2015 2:34 PM FACETOR Dobutamine Stress Echocardiography Name: PIPO THAPA MR #: [id number] Study date: 17-Oct-2015 : 1970 Age: 44 years Gender: Female Height: 66 in Weight: 158 lb BSA: 1.81 m Allergies: PENICILLINS, PROPOXYPHENE N-APAP, SULFA DRUGS, HYDROCODONE-ACETAMINOPHEN Reading Physician: Emma Givens MD Referring Physician: Fer Jaquez MD Performing Nurse Practitioner: DIEGO Jaimes- Remote Sensing Program Manager: Essence Puga RDCS CLINICAL QUESTION: Chest pain [...] peak heart rate and blood pressure [place] [address]. There was no chest pain during stress. [...] Stress Echocardiography Name: PIPO THAPA MR #: [id number] Study date: 17-Oct-2015 : 1970 Age: 44 years Gender: Female Height: 66 in Weight: 158 lb BSA: 1.81 m Allergies: PENICILLINS, PROPOXYPHENE N-APAP, SULFA DRUGS, HYDROCODONE-ACETAMINOPHEN Reading Physician: Emma Givens MD Referring Physician: Fer Jaquez MD Performing Nurse Practitioner: DIEGO Jaimes- Remote Sensing Program Manager: Essence Puga RDCS CLINICAL QUESTION: Chest pain [...] peak heart rate and blood pressure was [address]. There was no chest pain during stress. [...] Jaquez MD ECHO ORDERABLES Performing Organization Address City/State/[facility] [place] [address] * VAS ARTERIAL ANKLE ARM INDEX (10/12/2015 10:05 AM FACETOR) Anatomical Region Laterality Modality Ultrasound 10/12/2015 7:42 AM FACETOR Narrative Procedure Note George Watson MD - 10/12/2015 [place] [address] Lower Extremity Arterial Doppler Report Pat.Name: PIPO THAPA Pat.ID: [id number] .Date: 10/12/2015 Refer.MD: TRENT VALERA Exam Time: 7:42:00 AM Study Type:DELFIN/PVR Age: 4 1970,44Y Sex: FEMALE Sonogrphr: Abbi Feliz RVT Pat. Stat.:Outpatient ICD - 9: numbness CPT - 4: 99524 Reason for Study:Numbness Procedures:Ankle Arm Index Visit ID: [id number] SUMMARY: Based on this resting examination, there [...] 0.90). Arterial doppler waveforms of the right VASCULAR ULTRASOUND TECHNICIAN and Dorsalis Pedis are triphasic. Arterial doppler waveforms of the left VASCULAR ULTRASOUND TECHNICIAN and Dorsalis Pedis are triphasic. MEASUREMENTS: PRESSURES [...] PM CDT Narrative Resulting Agency Comment [facility] [address] [phone] Salvador Hector MD LAB - CHEMISTRY O [...] 6:11 PM CDT Narrative Resulting Agency Comment [place] [id number] [facility] [phone] Salvador Hector MD LAB - CHEMISTRY O RDERABLES Performing Organization Address [facility] Co de Phone Number [facility] ACCOUNT BILL * (ABNORMAL) VITAMIN D 25-HYDROXY (05/05/2014 2:42 PM CDT) Only the most recent of4 resultswithin the time period is included. Vitamin D, 25 Hydroxy 22.3(L) 30.0 - 100.0 ng/mL [facility] ACCOUNT BILL Comment: Vitamin D deficiency has been defined by the [place] [employer] and an Endocrine Society practice guideline as a level of serum 25-OH vitamin D less than 20 ng/mL (1,2). The Endocrine Society went on to further define vitamin D insufficiency as a level between 21 and 29 ng/mL (2). 1. IOM ([place] [employer]). 2010. Dietary reference intakes for calcium and D. [place]: The National Academies Press. 2. [place] MF, Svetlana [place], Jerrica SHIRLEY, et al. Evaluation, treatment, and prevention of vitamin D deficiency: an Endocrine Society clinical practice guideline. JCEM. 2010; 96(7):1911-30. Blood specimen (specimen) BLOOD SPECIMEN / Unknown 05/05/2014 2:42 PM CDT 05/05/2014 6:11 PM CDT Narrative Resulting Agency Comment [facility] [address] [facility] [phone] Salvador Hector MD LAB - CHEMISTRY O RDERABLES Performing Organization Address City/[facility]/ZIP Co de Phone Number [facility] ACCOUNT BILL [...] mammogram. RECOMMENDATION: Follow up in one year. [facility] Breast [facility] utilizes [employer] as a reminder system to notify patients [...] mammogram. RECOMMENDATION: Follow up in one year. [facility] utilizes [employer] as a reminder system to notify patients [...] 6:19 PM CDT Narrative Resulting Agency Comment [facility] [address] [facility] [phone] Slavador Hector MD LAB - CHEMISTRY O RDERABLES [facility] ACCOUNT BILL * VITAMIN B12 (04/07/2013 12:40 PM CDT) Vitamin B12 525 211 - 946 pg/mL [facility] ACCOUNT BILL Blood specimen (specimen) BLOOD SPECIMEN / Unknown 04/07/2013 12:40 PM CDT 04/07/2013 6:19 PM CDT Narrative Resulting Agency Comment [facility] [address] [facility] [phone] Salvador Hector MD LAB - CHEMISTRY O RDSHRADDHA Performing Organization Address [facility] Co de Phone Number [facility] ACCOUNT BILL * ANTI-MULLERIAN HORMONE (01/11/2013 10:29 AM CDT) Anti-Mullerian Hormone (AMH) <0.16 ng/mL [facility] ([facility]) Comment: REFERENCE RANGES for AMH/MIS: Age Expected [...] of this test [facility] [place], [place]. This test should not be used for diagnosis without confirmation by other medically established means. Test Performed at: [facility] [place] [id number] [place] [id number] KIESHA ORTIZ MD 01/11/2013 10:2 9 AM CDT 01/11/2013 10:29 AM CDT Camacho Alvarado MD LAB - CHEMISTRY ORD ERABLES Performing Organization Address City/[facility] de Phone Number [facility] ([facility]) * LAB HISTORICAL RESULTS-ONBASE (12/29/2012) Only the most recent of3 resultswithin the time period is included. 12/29/[address] [facility] - 01/12/2013 12:58 PM CDT Camacho Alvarado MD LAB - CHEMISTRY ORD ERABLES Performing Organization Address [facility] de Phone Number [address] * FSH + LH PANEL (08/18/2012 2:58 PM FACETOR) Only the most recent of2 resultswithin the time period is included. FSH 7.9 mIU/mL [facility] ([facility]) Comment: Reference Range Follicular Phase 2.5-10.2 Mid-cycle Peak 3.1-17.7 Luteal Phase 1.5- 9.1 Postmenopausal 23.0-116.3 LH 2.6 mIU/mL [facility] ([facility]) Comment: Reference Range Follicular Phase 1.9-12.5 Mid-Cycle Peak 8.7-76.3 Luteal Phase 0.5-16.9 Postmenopausal 10.0-54.7 Test Performed at: [facility] [place] [address] [place] [address] GREG JACK DO,MPH 08/18/2012 2:58 PM FACETOR 08/18/2012 2:59 PM FACETOR Camacho Alvarado MD LAB - CHEMISTRY ORD ERABLES [facility] ([facility]) * FL HYSTEROSALPINGOGRAM (07/31/2012 1:21 PM FACETOR) Anatomical Region Laterality Modality Abdomen, Pelvis Radio Fluoroscop y 07/31/2012 1:27 PM FACETOR Impressions 07/31/2012 1:27 PM FACETOR 1. Obstruction of the left fallopian tube. Narrative 07/31/2012 1:27 PM FACETOR HISTORY: Fertility testing. Hysterosalpingogram, 07/31/2012. FINDINGS: Fluoroscopy [...] canal may be present. Would correlate with SKILLS AUDITOR report for further information. Procedure Note Markell [...] canal may be present. Would correlate with SKILLS AUDITOR report for further information. IMPRESSION 1. Obstruction of the left fallopian tube. Camacho Alvarado MD FLUOROSCOPY ORDERAB LES * HCG URINE QUALITATIVE (07/31/2012 12:11 PM FACETOR) HCG Qual Urine Negative SEE BELOW [facility] [facility] Comment: Normal, Negative Pos, Sensitivity 25 MIU/ML Comment hCG Urine [facility] Comment: For optimal results, it is best to test the first urine voided in the morning because it contains the greatest concentration of hCG. URINE / Unknown 07/31/2012 1 2:11 PM FACETOR 07/31/2012 12:11 PM FACETOR Camacho Alvarado MD LAB - URINALYSIS OR DERABLES [facility] [address] [place] [address] * GROSS + MICRO EXAM (07/03/2012 10:41 [...] Koilocytosis -- No evidence of malignancy OAN/GM/alj Marine Pilot alj Pathologist Anais Latif MD CPT code 69571 x2 Performed By [facility], [facility] at [facility], [address] [place] [address] MISCELLANEOUS SAMPLES / Unknown 07/03/2012 10:41 AM [...] 5:32 PM CDT Narrative Resulting Agency Comment [address] [id number] Mark Crane MD LAB - CHEMISTRY JALEN REGALADO [facility] INSURANCE BILL * (ABNORMAL) PAP IG RFLX HPV ASCU RFLX 16/18 (PO REF LAB) (06/10/2012 1:03 PM CDT) Only the most recent of2 resultswithin the time period is included. Diagnosis (A) [facility] INSURANCE BILL Comment: EPITHELIAL CELL ABNORMALITY. LOW-GRADE SQUAMOUS INTRAEPITHELIAL LESION (LGSIL); MILD DYSPLASIA IS PRESENT. Recommendation (A) [facility] INSURANCE BILL Comment:Suggest follow up as clinically appropriate. Specimen Adequacy [facility] INSURANCE BILL Comment: Satisfactory for evaluation. Endocervical and/or squamous metaplastic cells (endocervical component) are present. Clinician Provided ICD9 [facility] INSURANCE BILL Comment: V72.31 ; Routine gynecological examination 626.4 ; Irregular menstrual cycle Performed by [facility] INSURANCE BILL Comment:Adamaris Martínez, Cyto technologist (ASCP) Electronically Signed by [facility] INSURANCE BILL Comment:Sandy Baltazar MD, Pathologist Comment . [facility] INSURANCE BILL Pathologist Provided ICD9 [facility] INSURANCE BILL Comment:795.03 Note [facility] INSURANCE BILL Comment: The Pap smear is [...] use of an image guided system. Note [facility] INSURANCE BILL Comment: The HPV DNA reflex [...] Vial Resulting Agency Comment [facility] [address] [facility], [place] [phone] Mark Crane MD LAB - PATHOLOGY/CYTO LOGY ORDERABLES [facility] INSURANCE BILL * CARDIAC HOLTER MONITOR ORDER (04/23/2012 1:32 PM CDT) Narrative Transcriptions Document, Scanned - 04/23/2012 1:32 PM CDT Scanned Document CARDIAC SERVICES ORD ERABLES * HOLTER MONITOR (04/16/2012) Only the most recent of2 resultswithin the time period is included. Salvador Hector MD CARDIAC SERVICES ORDERABLES Performing Organization Address City/[facility]/ZIP Co de Phone Number [facility] RESULT SCAN * HIV-1 HIV-2 ANTIBODY (04/01/2012 4:52 PM CDT) Only the most recent of2 resultswithin the time period is included. HIV-1/HIV-2 Nonreactive Nonreactiv [facility] BLOOD SPECIMEN / Unknown 04/01/2012 4:52 PM CDT 04/01/2012 4:52 PM CDT Salvador Hector MD LAB - CHEMISTRY O RDERABLES Performing Organization Address City/[facility]/ZIP Co de Phone Number [facility] [address] [place] [address] * CORTISOL BLOOD (04/01/2012 4:52 PM CDT) Only the most recent of3 resultswithin the time period is included. Cortisol 5.42 3.09 - 22.40 ug/dl [facility] BLOOD SPECIMEN / Unknown 04/01/2012 4:52 PM CDT 04/01/2012 4:52 PM CDT Salvador Hector MD LAB - CHEMISTRY O RDERABLES Performing Organization Address City/[facility]/ZIP Co de Phone Number [facility] [address] [place] [address] * LAB MISC TEST (03/28/2012 12:44 PM CDT) Test Name HTLV I/II DNA PCR [facility] Test Result [facility] Comment: see scanned report test performed at [facility] BLOOD SPECIMEN / Unknown 03/28/2012 12:44 PM CDT 03/28/2012 12:44 PM CDT Narrative [facility] - 04/04/2012 9:32 AM CDT Performed By [facility] [address] [place] [address] Salvador Hector MD LAB SEND OUT Performing Organization Address [facility] Co de Phone Number [facility] [address] [place] [address] * CARDIAC STRESS TEST ORDER (06/13/2011) Historical Provider CARDIAC SERVICES ORDERABLES * CARDIAC ECHOCARDIOGRAM COMPLETE ORDER (06/13/2011) Only the most recent of2 resultswithin the time period is included. Provider Unknown ECHO ORDERABLES * NATALYA BLOOD SCREEN W/REFLEX TITER (12/28/2010 7:45 AM CDT) Only the most recent of2 resultswithin the time period is included. NATALYA Negative Negative [facility] BLOOD SPECIMEN / Unknown 12/28/2010 7:45 AM CDT 12/28/2010 7:45 AM CDT Segun Mccracken MD LAB - CHEMISTRY JALEN REGALADO Performing Organization Address City/[facility]/ZIP Co de Phone Number [facility] [address] [place] [address] * CD4 (ABSOLUTE T4) (12/28/2010 7:45 AM CDT) [facility] [address] CD4 (T-[place]) Absolute 925 410 - 1800 no./uL [facility] CD4% 58 30 - 66 % [facility] Comment Ref Lab [facility] Comment: Comments and Normal Ranges for Component *CD4/CD3, Percent(%) TEST INFORMATION/ CD4 Percent and Absolute Count In this test, the CD4 cells are [place] T-cells because they express both CD3 and CD4. [place] T-cell levels are a criterion for categorizing HIV-related clinical conditions by the CDC's classification system for HIV infection. The measurement of [place] T-cell levels has been used to establish decision points for initiating P. jiroveci prophylaxis, antiviral therapy and to monitor the efficacy of treatment. The Public Health Service (PHS) has recommended that [place] T-cell levels be monitored every three to six months in all HIV-infected persons. The performance characteristics of this test were determined by [employer]. BLOOD SPECIMEN / Unknown 12/28/2010 7:45 AM CDT 12/28/2010 7:45 AM CDT Narrative Resulting Agency Comment Performed By [facility] [address] [place] [address] Segun Mccracken MD LAB - HEMATOLOGY ORD ERABLES Performing Organization Address City/[facility] Co de Phone Number [facility] [address] [place] [address] * BLOOD TYPE ABO+ RH PANEL (12/28/2010 7:45 AM CDT) [facility] [address] ABO Rh O Pos SEE BELOW [facility] Comment: Weak D testing is not performed at [facility] Previous History Check Done No historical blood type. Blood type confirmation needed prior to transfusion. [facility] BLOOD SPECIMEN / Unknown 12/28/2010 7:45 AM CDT 12/28/2010 7:45 AM CDT Segun Mccracken MD LAB - BLOOD BANK ORD ERABLES Performing Organization Address City/[facility] Co de Phone Number [facility] [address] [place] [address] * MICROALBUMIN URINE RANDOM (10/31/2010 2:51 PM FACETOR) Microalbumin Urine <0.30 mg/dl [facility] Volume 24 Hour Urine random ml [facility] URINE SPECIMEN OBTAINED BY CLEAN CATCH PROCEDURE / Unknown 10/31/2010 2:51 PM FACETOR 10/31/2010 2:51 PM FACETOR Salvador Hector MD LAB - URINE CHEMI STRY ORDERABLES Performing Organization Address [facility] de Phone Number [facility] [address] [place] [address] * URINALYSIS ROUTINE AUTO (10/31/2010 2:51 PM FACETOR) Source Random [facility] Color UA Yellow [facility] Character UA Clear [facility] Glucose UA NEGATIVE NEGATIVE mg/dl [facility] Bilirubin UA NEGATIVE NEGATIVE [facility] Ketone UA NEGATIVE NEGATIVE mg/dl [facility] Specific [place] UA 1.010 1.003 - 1.030 [facility] Blood UA NEGATIVE NEGATIVE [facility] pH UA 7.0 5.0 - 9.0 [facility] Protein UA NEGATIVE NEGATIVE-TRA CE mg/dl [facility] Urobilinogen UA 0.2 0.2 - 1.0 Noam Units/dl [facility] Nitrite UA NEGATIVE NEGATIVE [facility] Leukocyte UA NEGATIVE NEGATIVE [facility] URINE SPECIMEN OBTAINED BY CLEAN CATCH PROCEDURE / Unknown 10/31/2010 2:51 PM FACETOR 10/31/2010 2:51 PM FACETOR Salvador Hector MD LAB - URINALYSIS ORDERABLES Performing Organization Address [facility] de Phone Number [facility] [address] [place] [address] * T3 FREE (10/31/2010 2:51 PM FACETOR) T3 Free 2.83 2.3 - 4.2 pg/ml [facility] BLOOD SPECIMEN / Unknown 10/31/2010 2:51 PM FACETOR 10/31/2010 2:51 PM FACETOR Salvador Hector MD LAB - CHEMISTRY O RDERABLES Performing Organization Address [facility] de Phone Number [facility] [address] [place] [address] * TSH (10/31/2010 2:51 PM FACETOR) TSH 1.148 0.55 - 4.78 uIU/ml [facility] BLOOD SPECIMEN / Unknown 10/31/2010 2:51 PM FACETOR 10/31/2010 2:51 PM FACETOR Salvador Hector MD LAB - CHEMISTRY O RDERAABY Performing Organization Address [facility] de Phone Number [facility] [address] [place] [address] * T4 TOTAL (10/31/2010 2:51 PM FACETOR) T4 Total 9.3 4.5 - 10.9 ug/dl [facility] BLOOD SPECIMEN / Unknown 10/31/2010 2:51 PM FACETOR 10/31/2010 2:51 PM FACETOR Salvador Hector MD LAB - CHEMISTRY O JALEN Performing Organization Address [facility] de Phone Number [facility] [address] [place] [address] * ECHOCARDIOGRAM 2D WITH DOPPLER (10/31/2010 2:00 PM FACETOR) 10/31/2010 2:00 PM FACETOR Narrative [facility] - 11/01/2010 4:34 PM FACETOR [address] [address] Transthoracic Echocardiogram 2D, M-mode, Doppler, and Color Doppler Patient: PIPO THAPA MR number: [id number] Height: 66 in Weight: 150 lb BSA: 1.77 m Study date: 31-Oct-2010 : 1970 Age: 39 years Gender: Female Race: N Allergies: PENICILLIN Referring Physician: Salvador Hector MD Remote Sensing Program Manager: Sriram Palma RDCS Reading Physician: Stef Bergman [...] by Stef Bergman MD Signed 01-Nov-2010 16:34:17 Procedure Note 11/01/[address] [id number] Transthoracic Echocardiogram 2D, M-mode, Doppler, and Color Doppler Patient: PIPO THAPA MR number: [id number] Height: 66 in Weight: 150 lb BSA: 1.77 m Study date: 31-Oct-2010 : 1970 Age: 39 years Gender: Female Race: N Allergies: PENICILLIN Referring Physician: Salvador Hector MD Remote Sensing Program Manager: Sriram Palma RDCS Reading Physician: Stef Bergman [...] 01-Nov-2010 16:34:17 Salvador Hector MD ECHO ORDERABLES [facility] [address] [place] [address] * XR WRIST 3+ VW LEFT (04/13/2010 [...] MD DIAGNOSTIC ALFREDIN G ORDERABLES Care Teams Watch Inspector Final Movement Relationship Specialty Start Date End Date Salvador Hector MD [address] [facility] [address] [place] [phone] PCP - General 05/17/09 Segun Mccracken MD [address] [facility] [address] [place] [address] Infectious Disease 11/24/13 Fer Jaquez MD [address] [facility] [address] [place] [address] Cardiology 01/12/16
--- OUTSIDE RECORDS SUMMARY | 2024-10-27 00:05 | XMS_ITS | Clinical Summary ---
Author Organization [facility] [email or web address] Address [address] [place] [address] Care Team Providers Care Paper Sealer Name Role Phone Salvador eHctor MD Primary Care Provider [phone] Segun Mccracken MD Unavailable [phone] Fer Jaquez MD Unavailable [phone] Source Comments [facility],non-owned Affiliates and Associated Physician Practices is amultiple site organization consisting of ambulatory clinics and hospital sitesin [place], [place], [place] and [place]. This disclosure is being madepursuant to the Care Everywhere program and may not contain all information available regarding this patient. Last updated 18.[facility] Allergies Active Allergy Reactions Criticality Noted Date [...] file Gender Identity Female 08/05/2017 9:52 AM INSPECTOR CLIP ON SUNGLASSES Sexual Orientation Not on file Last Filed Vital Signs Vital Sign Reading Time Taken Comments Blood Pressure 100/70 09/23/2018 10:06 AM INSPECTOR CLIP ON SUNGLASSES Pulse 97 09/23/2018 10:06 AM INSPECTOR CLIP ON SUNGLASSES Temperature 36.5 C (97.7 F) 07/01/2011 12:39 PM CDT Respiratory Rate 16 09/23/2018 10:06 AM INSPECTOR CLIP ON SUNGLASSES Oxygen Saturation 98% 09/23/2018 10:06 AM INSPECTOR CLIP ON SUNGLASSES Inhaled Oxygen Concentration - - Weight 76.7 kg (169 lb) 09/23/2018 10:06 AM INSPECTOR CLIP ON SUNGLASSES Height 167.6 cm (5' 6 ) 09/23/2018 10:06 AM INSPECTOR CLIP ON SUNGLASSES Body Mass Index 27.28 09/23/2018 10:06 AM INSPECTOR CLIP ON SUNGLASSES Plan of Treatment Health Maintenance Due Date [...] - 19+ 3-dose series) 12/08/1987 PNEUMOCOCCAL VACCINE (2 of 2 - PCV) 07/02/2009 07/02/2008 PAP SMEAR 06/10/2015 06/10/2012, 06/05/2011 MAMMOGRAM 02/20/2018 02/21/2016, 08/03/2013, 04/02/2012, Additional history exists PNEUMOCOCCAL VACCINE 50+ (2 of 2 - PCV) 2018 07/02/2008 ZOSTER VACCINE (1 of 2) 2018 SCREENING [...] Comments COMPREHENSIVE METABOLIC PANEL 09/09/2018 2:31 PM INSPECTOR CLIP ON SUNGLASSES HEPATITIS C AB W/RFLX TO HCV RNA QN PCR Routine 09/09/2018 2:31 PM INSPECTOR CLIP ON SUNGLASSES Pustulosis palmaris et plantaris Encounter for long-term [...] HCV RNA QN PCR (09/09/2018 2:31 PM INSPECTOR CLIP ON SUNGLASSES) Pathologist [facility] Hepatitis C Antibody NON-REACTI VE NON-REACT TIN [facility] Signal to Cut-Off 0.01 <1.00 [facility] Comment: REPORT COMMENT: FASTING:NO Test Performed at: [facility] [id number] [place] [address] GREG JACK DO,MPH Blood BLOOD SPECIMEN / Unknown 09/09/2018 2:31 PM INSPECTOR CLIP ON SUNGLASSES 09/09/2018 2:32 PM INSPECTOR CLIP ON SUNGLASSES Mark Vogt MD LAB - CHEMISTRY JALEN REGALADO [facility] Organization Address City/State/ZIP Co de Phone Number [facility] [address] [place] [address] * COMPREHENSIVE METABOLIC PANEL (09/09/2018 2:31 PM INSPECTOR CLIP ON SUNGLASSES) Pathologist [facility] Glucose 73 65 - 139 mg/dL [facility] [...] 29 U/L [facility] Comment: Test Performed at: [facility] [id number] [place] [address] GREG JACK DO,MPH 09/09/2018 2:31 PM INSPECTOR CLIP ON SUNGLASSES 09/09/2018 2:32 PM INSPECTOR CLIP ON SUNGLASSES Mark Vogt MD LAB - CHEMISTRY JALEN REGALADO [facility] Organization Address City/State/ZIP Co de Phone Number [facility] [address] [place] [address] * MAMMOGRAPHY ORDER (02/21/2016) Anatomical Region Laterality Modality Other Salvador Hector MD MAMMO ORDERABLES * (ABNORMAL) PAP IG RFLX HPV ASCU RFLX 16/18 (PO REF LAB) (06/10/2012 1:03 PM CDT) Diagnosis (A) [facility] INSURANCE BILL Comment: EPITHELIAL CELL ABNORMALITY. LOW-GRADE SQUAMOUS INTRAEPITHELIAL LESION (LGSIL); MILD DYSPLASIA IS PRESENT. Recommendation (A) [facility] INSURANCE BILL Comment:Suggest follow up as clinically appropriate. Specimen Adequacy [facility] INSURANCE BILL Comment: Satisfactory for evaluation. Endocervical and/or squamous metaplastic cells (endocervical component) are present. Clinician Provided ICD9 [facility] INSURANCE BILL Comment: V72.31 ; Routine gynecological examination 626.4 ; Irregular menstrual cycle Performed by [facility] INSURANCE BILL Comment:Adamaris Martínez, Cyto technologist (ASCP) Electronically Signed by [facility] INSURANCE BILL Comment:Sandy Baltazar MD, Pathologist Comment [...] CYTYC Thin Prep Vial Resulting Agency Comment [facility] [address] [facility] [phone] Mark Ayoub MD LAB - PATHOLOGY/CYTO LOGY ORDERABLES [facility] INSURANCE BILL * HIV-1 HIV-2 ANTIBODY (04/01/2012 4:52 PM CDT) HIV-1/HIV-2 Nonreactive Nonreactiv [facility] BLOOD SPECIMEN / Unknown 04/01/2012 4:52 PM CDT 04/01/2012 4:52 PM CDT Salvador Hector MD LAB - CHEMISTRY O RDERABLES [facility] [address] [place] [address] from Last 3 Months or Most Recently Relevant to Health Maintenance Care Teams Paper Sealer Relationship Specialty Start Date End Date Salvador Hector MD [address] [facility] [address] [phone] PCP - General 05/17/09 Segun Mccracken MD [address] [employer] [facility] [address] [place] [address] Infectious Disease 11/24/13 Fer Jaquez MD [address] [facility] [address] [place] [address] Cardiology 01/12/16
--- OUTSIDE RECORDS SUMMARY | 2024-10-27 00:05 | XMS_ITS | Referral Summary ---
Author Organization [facility] Address [address] [place] [address] Care Team Providers Care Environmental Compliance Technician Name Role Phone Salvador Hector MD Primary Care Provider [phone] Segun Mccracken MD Unavailable [phone] Fer Jaquez MD Unavailable [phone] Source Comments [facility],non-owned Affiliates and Associated Physician Practices is amultiple site organization consisting of ambulatory clinics and hospital sitesin [place], [place], [place] and [place]. This disclosure is being madepursuant to the Care Everywhere program and may not contain all information available regarding this patient. Last updated 18.[facility] Allergies Active Allergy Reactions Criticality Noted Date [...] file Gender Identity Female 08/05/2017 9:52 AM HEALTH WORKER Sexual Orientation Not on file Last Filed Vital Signs Vital Sign Reading Time Taken Comments Blood Pressure 100/70 09/23/2018 10:06 AM HEALTH WORKER Pulse 97 09/23/2018 10:06 AM HEALTH WORKER Temperature 36.5 C (97.7 F) 07/01/2011 12:39 PM CDT Respiratory Rate 16 09/23/2018 10:06 AM HEALTH WORKER Oxygen Saturation 98% 09/23/2018 10:06 AM HEALTH WORKER Inhaled Oxygen Concentration - - Weight 76.7 kg (169 lb) 09/23/2018 10:06 AM HEALTH WORKER Height 167.6 cm (5' 6 ) 09/23/2018 10:06 AM HEALTH WORKER Body Mass Index 27.28 09/23/2018 10:06 AM HEALTH WORKER Plan of Treatment Not on file Goals Goal Patient Goal Type Associated Problems Recent Progress Patient-Stated? Author Quit smoking / using tobacco Lifestyle On track( 015 1:34 PM CDT) Radha Abreu MA Procedures Procedure Name Priority Date/Time Associated Diagnosis Comments COMPREHENSIVE METABOLIC PANEL 09/09/2018 2:31 PM HEALTH WORKER HEPATITIS C AB W/RFLX TO HCV RNA QN PCR Routine 09/09/2018 2:31 PM HEALTH WORKER Pustulosis palmaris et plantaris Encounter for long-term [...] HCV RNA QN PCR (09/09/2018 2:31 PM HEALTH WORKER) Hepatitis C Antibody NON-REACTI VE NON-REACT TIN [facility] Signal to Cut-Off 0.01 <1.00 [facility] Comment: REPORT COMMENT: FASTING:NO Test Performed at: [facility] [employer] [facility] [address] [place] [address] GREG JACK DO,MPH Blood BLOOD SPECIMEN / Unknown 09/09/2018 2:31 PM HEALTH WORKER 09/09/2018 2:32 PM HEALTH WORKER Mark Vogt MD LAB - CHEMISTRY JALEN REGALADO [facility] Organization Address City/State/ZIP Co de Phone Number [facility] [address] [place] [address] * COMPREHENSIVE METABOLIC PANEL (09/09/2018 2:31 PM HEALTH WORKER) Pathologist [facility] Glucose 73 65 - 139 mg/dL [facility] [...] 29 U/L [facility] Comment: Test Performed at: [facility] [employer] [address] [place] [address] GREG JACK DO,MPH 09/09/2018 2:31 PM HEALTH WORKER 09/09/2018 2:32 PM HEALTH WORKER Mark Vogt MD LAB - CHEMISTRY JALEN REGALADO Performing Organization Address City/State/[facility] Co de Phone Number [facility] [address] [place] [address] * MAMMOGRAPHY ORDER (02/21/2016) Anatomical Region Laterality [...] 626.4 ; Irregular menstrual cycle Performed by [facility] INSURANCE BILL Comment:Adamaris Martínez, Cyto technologist (ASCP) Electronically Signed by [facility] INSURANCE BILL Comment:Sandy Baltazar MD, Pathologist Comment [...] CYTYC Thin Prep Vial Resulting Agency Comment [address] [place] [phone] Mark Ayoub MD LAB - PATHOLOGY/CYTO LOGY ORDERABLES [facility] INSURANCE BILL * HIV-1 HIV-2 ANTIBODY (04/01/2012 4:52 PM CDT) HIV-1/HIV-2 Nonreactive Nonreactiv [facility] BLOOD SPECIMEN / Unknown 04/01/2012 4:52 PM CDT 04/01/2012 4:52 PM CDT Salvador Hector MD LAB - CHEMISTRY O RDERABLES [facility] [address] [place] [address] from Last 3 Months or Most Recently Relevant to Health Maintenance Administered Medications Care Teams Environmental Compliance Technician Relationship Specialty Start Date End Date Salvador Hector MD [address] [facility] [address], [place] [phone] PCP - General 05/17/09 Segun Mccracken MD [address] [employer] [facility] [address] [place] [address] Infectious Disease 11/24/13 Fer Jaquez MD [address] [facility] [address] [place] [address] Cardiology 01/12/16
--- OUTSIDE RECORDS SUMMARY | 2024-10-27 00:05 | XMS_ITS | Clinical Summary ---
Author Organization [facility] Address [facility] [place] [address] Care Team Providers Care Tank Terminal Gauger Name Role Phone Unavailable Primary Care Provider Unavailabl e Social History Tobacco Use Types Packs/Day Years Used Date Smoking Tobacco: Never Assessed Comments Unknown Sex and Gender Information Value Date Recorded Sex Assigned at Not on file Legal Sex Female 5:44 PM SPACE CONTROL SUPERVISOR Gender Identity Not on file Sexual Orientation [...]
--- OUTSIDE RECORDS SUMMARY | 2024-10-27 00:05 | XMS_ITS | Clinical Summary ---
Author Organization [facility] Address [address] [place] [address] Phone Care Team Providers Care A And P Technician Name Role Phone Salvador Hector MD [...] to complete this topic Insurance Care Teams A And P Technician Relationship Specialty Start Date End Date Salvador Hector MD PCP - General Internal Medicine 04/24/17
--- OUTSIDE RECORDS SUMMARY | 2024-10-27 00:05 | XMS_ITS | Referral Summary ---
Author Organization [facility] Address [address] [place] [address] Care Team Providers Care Public Policy Associate Name Role Phone Salvador Hector MD Primary Care Provider + Christian Miranda MD Unavailable Encounters Date Type Department Care Team Description 10/12/2024 Telephone [facility] Medical [facility] Primary Care at [facility] [address] [facility] [address] [place] [phone] Salvador Hector MD from Last 3 [...] (05/04/2020): Added automatically from request for surgery [id number] Screen for colon cancer 05/03/2020 Overview (05/03/2020): Added automatically from request for surgery [id number] Pustulosis palmaris et plantaris 06/15/2018 Small fiber [...] on file Legal Sex Female 3:46 AM DELIVERY REPRESENTATIVE Gender Identity Female 05/08/2021 10:15 AM CDT [...] Read Routine (OP Routine) 11/02/2020 1:31 PM DELIVERY REPRESENTATIVE Screening for breast cancer COLONOSCOPY 06/14/2020 12:17 PM CDT IMAGING PAP AND HPV MRNA E6/E7 Routine 11/04/2016 1:39 PM DELIVERY REPRESENTATIVE from Last 3 Months or Most Recently Relevant to Health Maintenance Results * Screening Mammogram Bilateral W Tejinder (11/02/2020 1:31 PM DELIVERY REPRESENTATIVE) Anatomical Region Laterality Modality Breast Bilateral Mammography Narrative 11/03/2020 11:14 AM DELIVERY REPRESENTATIVE Mammogram Technique: Bilateral Digital Breast Tomosynthesis, Bilateral C-view 2D Screening mammogram. Views obtained: bilateral craniocaudal and bilateral mediolateral oblique. Computer Aided Detection was performed. Mammogram Findings: The present examination has been compared to prior imaging studies performed at [facility]. [facility] on 12/28/2010, 04/02/2012 and 04/07/2013. [...] compared to prior imaging studies performed at [facility]. [facility] on 12/28/2010, 04/02/2012 and 04/07/2013. [...] Date: 06/14/2020 12:17PM Admit Type: Outpatient Room: [facility] 2 Date of : 1970 Instrument [...] bowel preparation was evaluated using the BBPS ([place] Bowel Preparation Scale) with scores of: Right [...] and HPV mRNA E6/E7 (11/04/2016 1:39 PM DELIVERY REPRESENTATIVE) SOURCE: SEE NOTE [facility] HISTORICAL RESULTS Comment:Cervix, [...] has been evaluated with computer assisted technology. Pest Management Supervisor SEE NOTE [facility] HISTORICAL RESULTS Comment: ABC, CT(ASCP) CT screening location: [place] [address] [place] [address] Test performed at [employer] [address] Director: CONCHA SELBY MD 11/04/2016 1:39 PM DELIVERY REPRESENTATIVE June Loaiza MD LAB PATHOLOGY ORDERAB LES Final Result [facility] HISTORICAL RESULTS from Last 3 Months or Most Recently Relevant to Health Maintenance Insurance [employer] [facility] [id number] [facility] [id number] Advance Directives For more information, please contact: [phone] * Full Code (Latest Code Status on File) Date Activated Date Inactivated Comments 06/14/2020 11:48 AM 06/14/2020 6:08 PM Care Teams Public Policy Associate Relationship Specialty Start Date End Date Salvador Hector MD [address] [address] PCP - General 11/29/16 Christian Miranda MD [address] [address] Referring Physician Neuromuscular Medicine 04/22/18
--- OUTSIDE RECORDS SUMMARY | 2024-10-27 00:05 | XMS_ITS | Clinical Summary ---
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 [address] [place] [phone] Salvador Hector MD from Last 3 [...] 11/15/2016 - Psoriasis Anxiety Autoimmune disease (CMS/HCC) ([facility]) October 2015 Family History Medical History Relation Name Comments Alcohol abuse Brother 1 Derik Thapa Jr Cancer Brother 2 Tono Thapa Coronary artery disease Father Derik Thapa Wilson nary artery disease; /Coronary artery disease; Heart disease Father Derik Thapa Hyperlipidemia Father Derik Thapa High choleste rol; Hypertension Father Dreik Thapa Hypertension; Colon cancer Father's Brother 2 [...] on file Legal Sex Female 3:46 AM PICTURE ENLARGER Gender Identity Female 05/08/2021 10:15 AM CDT [...] Read Routine (OP Routine) 11/02/2020 1:31 PM PICTURE ENLARGER Screening for breast cancer COLONOSCOPY 06/14/2020 12:17 PM CDT IMAGING PAP AND HPV MRNA E6/E7 Routine 11/04/2016 1:39 PM PICTURE ENLARGER from Last 3 Months or Most Recently Relevant to Health Maintenance Results * Screening Mammogram Bilateral W Tejinder (11/02/2020 1:31 PM PICTURE ENLARGER) Anatomical Region Laterality Modality Breast Bilateral Mammography Narrative 11/03/2020 11:14 AM PICTURE ENLARGER Mammogram Technique: Bilateral Digital Breast Tomosynthesis, Bilateral C-view 2D Screening mammogram. Views obtained: bilateral craniocaudal and bilateral mediolateral oblique. Computer Aided Detection was performed. Mammogram Findings: The present examination has been compared to prior imaging studies performed at [facility]. [facility] on 12/28/2010, 04/02/2012 and 04/07/2013. [...] prior imaging studies performed at [facility]. [facility] on 12/28/2010, 04/02/2012 and 04/07/2013. [...] Date: 06/14/2020 12:17PM Admit Type: Outpatient Room: [facility] 2 Date of : 1970 Instrument [...] bowel preparation was evaluated using the BBPS ([place] Bowel Preparation Scale) with scores of: Right [...] and HPV mRNA E6/E7 (11/04/2016 1:39 PM PICTURE ENLARGER) SOURCE: SEE NOTE [facility] HISTORICAL RESULTS Comment:Cervix, [...] has been evaluated with computer assisted technology. Correspondence Renew Clerk SEE NOTE [facility] HISTORICAL RESULTS Comment: ABC, CT(ASCP) CT screening location: [place] [address] [place] [address] Test performed at [facility] [place] [address] [place] [address] Director: CONCHA SELBY MD 11/04/2016 1:39 PM PICTURE ENLARGER June Loaiza MD LAB PATHOLOGY ORDERAB LES Final Result [facility] HISTORICAL RESULTS from Last 3 Months or Most Recently Relevant to Health Maintenance Insurance [employer] [facility] [id number] [employer] OPEN ACCESS [facility] [address] Advance Directives For more information, please contact: [phone] * Full Code (Latest Code Status on File) Date Activated Date Inactivated Comments 06/14/2020 11:48 AM 06/14/2020 6:08 PM Care Teams Food Service Agent Relationship Specialty Start Date End Date Salvador Hector MD [address] [facility] [address], [place] [address] PCP - General 11/29/16 Christian Miranda MD [address] [address] Referring Physician Neuromuscular Medicine 04/22/18
--- OUTSIDE RECORDS SUMMARY | 2024-10-27 00:06 | XMS_ITS | Encounter Summary ---
Author Organization [facility] Address [address] [place] [address] Care Team Providers Care Stave Hewer Name Role Phone Salvador Hector MD Primary Care Provider [phone] Segun Mccracken MD Unavailable [phone] Fer Jaquez MD Unavailable [phone] Encounter Details Date Type Department Care Team (Late st Contact Info) Description 06/10/2012 [facility] Outpatient Visit [facility] [address] [place] [address] [address] [place], [place] [id number] Pedrito Thomson MD [address] [place] [address] [facility] [address] [place] [address] Social History Tobacco Use Types Packs/Day Years Used Date Smoking Tobacco: Every Day Cigarettes Last attempted to quit: 03/16/2009 Alcohol Use Standard Drinks/Week Comments No 0 (1 standard drink = 0.6 oz pur e alcohol) Sex and Gender Information Value Date Recorded Sex Assigned at Not on file Gender Identity Female 08/05/2017 9:52 AM AGILE DEVELOPER Sexual Orientation Not on file documented as of this encounter Plan of Treatment Not on file documented as of this encounter Visit Diagnoses Not on filedocumented in this encounter Care Teams Stave Hewer Relationship Specialty Start Date End Date Salvador Hector MD [address] [facility] [address] [place] [address] PCP - General 05/17/09 Segun Mccracken MD [address] [place] [address] Infectious Disease 11/24/13 Fer Jaquez MD [address] [facility] [address] [place] [address] Cardiology 01/12/16 documented as of this encounter
[2024-10-27 07:45] VITALS: BP 113/65; PULSE 91; RESP 16; TEMP 36.1; O2SAT 99; BMI 24.5
[2024-10-27] MEDS: LACTATED RINGERS 1,000 ML 150 ML IV CONT (07:53)
--- NOTE | 2024-10-27 08:45 | P.PNAN_ITS ---
Anes - Initial Pre Proc Eval Procedure: Operation Date: 10/27/24 09:00 Proposed Procedures p Colonoscopy - Ming Galo MD Date/Time: 10/27/24 08:45 Surgeon: Ming Galo MD Pre Op Diagnosis: Family hx of malignant neoplasm of digestive organ Patient Data Age: 53 Gender: F Height: 1.68 m Weight: 68.8 kg Last Vital Signs Temp 97.0 F L 10/27/24 07:45 Pulse 91 10/27/24 07:45 Resp 16 10/27/24 07:45 BP 113/65 10/27/24 07:45 Pulse Ox 99 10/27/24 07:45 O2 Del Method Room Air 10/27/24 07:45 Allergies Allergy/AdvReac Type Severity Reaction Status Date / Time Penicillins Allergy Intermediate Hives Verified 10/27/24 07:44 Sulfa (Sulfonamide Allergy Intermediate Hives Verified 10/27/24 07:44 Antibiotics) acetaminophen AdvReac Intermediate Palpitation Verified 10/27/24 07:44 s propoxyphene AdvReac Intermediate Hallucinati Verified 10/27/24 07:44 ng Home Medications ?Medication ?Instructions ?Recorded ?Confirmed ?Type clonazepam 0.5 mg tablet (Klonopin) 0.5 mg PO BID PRN anxiety 09/23/24 10/14/24 History escitalopram oxalate 20 mg tablet 20 mg PO DAILY 09/23/24 10/27/24 History nortriptyline 75 mg capsule 75 mg PO QHS 09/23/24 10/27/24 History rosuvastatin 20 mg tablet 20 mg PO DAILY 09/23/24 10/27/24 History Patient hx anesthesia problems: none Family hx anesthesia problems: none Results Review: All pre-operative results and documents have been reviewed as part of the pre- operative evaluation. [facility] Past Medical History Medical History Neuropathy Chronic fatigue Surgical History Surgical History H/O left knee surgery History of hernia surgery Family History Family History Mother Hypertension Anxiety Father High blood cholesterol Colon polyp Grandparent Cervical cancer Malignant neoplasm of prostate Social History Social History Smoking packs per day: 0.5 Smoking cigarettes per day: 10.0 Years smoked: 20 Smoking pack-years: 10.00 Smoking status: Current every day smoker Tobacco type: cigarettes Alcohol intake: never Living arrangements: with family Spiritual care concerns: No Anes - Eval Final PreProcedure Day of Procedure 10/27/24 08:45 Patient weight: overweight Lungs: normal air movement Airway: Mallampati scale class III Neurological: alert and oriented Last oral intake: >/= 8 hours ASA classification: II Emergent: no Anesthetic plan: proceed Anesthesia type and monitoring: general GIVS and standard monitoring Results Review: All pre-operative results and documents have been reviewed as part of the pre- operative evaluation. Hyperlipidemia, small fiber neuropathy. Informed Consent: The patient's anesthetic plan and its attendant risks and benefits were discussed with the patient/family/POA. Questions were solicited and answers provided to the satisfaction of the patient/family/POA.
--- NOTE | 2024-10-27 09:00 | PM.IMHP ---
H&P: HPI History of Present Illness Date/Time: 10/27/24 09:00 Chief Complaint: Family history colorectal cancer-history of polyps Narrative: This patient has family history of colorectal cancer. her brother had colorectal cancer at age 39. She had colonic polyps, the last colonoscopy was 4 years ago. Review of Systems Review of Systems: All systems reviewed & are unremarkable except as noted in HPI and below PMFSH Past Medical History Medical History Neuropathy Chronic fatigue Surgical History Surgical History H/O left knee surgery History of hernia surgery Family History Family History Mother Hypertension Anxiety Father High blood cholesterol Colon polyp Grandparent Cervical cancer Malignant neoplasm of prostate Social History Social History Smoking packs per day: 0.5 Smoking cigarettes per day: 10.0 Years smoked: 20 Smoking pack-years: 10.00 Smoking status: Current every day smoker Tobacco type: cigarettes Alcohol intake: never Living arrangements: with family Spiritual care concerns: No Meds Home Medications and Allergies Home Medications ?Medication ?Instructions ?Recorded ?Confirmed ?Type clonazepam 0.5 mg tablet (Klonopin) 0.5 mg PO BID PRN anxiety 09/23/24 10/14/24 History escitalopram oxalate 20 mg tablet 20 mg PO DAILY 09/23/24 10/27/24 History nortriptyline 75 mg capsule 75 mg PO QHS 09/23/24 10/27/24 History rosuvastatin 20 mg tablet 20 mg PO DAILY 09/23/24 10/27/24 History Allergies Allergy/AdvReac Type Severity Reaction Status Date / Time Penicillins Allergy Intermediate Hives Verified 10/27/24 07:44 Sulfa (Sulfonamide Allergy Intermediate Hives Verified 10/27/24 07:44 Antibiotics) acetaminophen AdvReac Intermediate Palpitation Verified 10/27/24 07:44 s propoxyphene AdvReac Intermediate Hallucinati Verified 10/27/24 07:44 ng Vital Signs Vital Signs - 24 hr 10/27/24 07:45 Temperature 97.0 F L Pulse Rate 91 Respiratory Rate 16 Blood Pressure 113/65 Pulse Oximetry 99 Oxygen Delivery Room Air Exam Const: General: cooperative and healthy appearing Resp: Effort & Inspection: normal respiratory effort and able to speak in complete sentences Auscultation: clear to auscultation bilaterally Cardio: Rate: regular rate Rhythm: regular rhythm GI: Inspection: normal to inspection GI Palp: No No hepatosplenomegaly present Auscultation: normal bowel sounds Rectal Exam: deferred Skin: General skin exam: normal color Psych: Appearance: grossly normal Mental Status: mental status grossly normal Assessment and Plan Assessment and plan (1) Family hx of colon cancer: Code(s): Z80.0 - Family history of malignant neoplasm of digestive organs Status: Acute Assessment and Plan: The patient is deemed a good candidate for the procedure. Consent signed. Will proceed.
[2024-10-27 09:35] VITALS: BP 102/61; PULSE 83; RESP 15; O2SAT 100
[2024-10-27 09:45] VITALS: BP 111/64; PULSE 82; RESP 17; O2SAT 98
[2024-10-27 09:55] VITALS: BP 120/73; PULSE 79; RESP 20; O2SAT 98
== END 2024-10-27 10:06 | disposition home or self-care (01) ==
PROVIDERS: PCP Nurse Practitioner Family; Visit Provider Internal Medicine Gastroenterology
PROC: 0DJD8ZZ Inspection of Lower Intestinal Tract, Via Natural or Artificial Opening Endoscopic (ICD-10-PCS; CPT 45378; principal; 2024-10-27 09:00)
DX: Z12.11 Encounter for screening for malignant neoplasm of colon (principal); K57.30 Diverticulosis of large intestine without perforation or abscess without bleeding; R53.82 Chronic fatigue, unspecified; G62.9 Polyneuropathy, unspecified; F17.210 Nicotine dependence, cigarettes, uncomplicated; Z98.890 Other specified postprocedural states; Z86.0100 Personal history of colon polyps, unspecified; Z83.719 Family history of colon polyps, unspecified; Z80.42 Family history of malignant neoplasm of prostate; Z80.0 Family history of malignant neoplasm of digestive organs; Z80.49 Family history of malignant neoplasm of other genital organs
CPT/HCPCS: 45378; J2704; J7120

== ENCOUNTER 2025-08-22 15:50 | Outpatient (NON) | payer OTHER, SELFPAY ==
--- NOTE | 2025-08-22 | CY_PTH ---
PATIENT: Comfort Thapa LOC: [facility] U#:[id number] AGE/SX: 54/F ROOM: RE08/22/[address]: Yuliya Ramirez NP : 1970 BED: DIS: 08/22/2025 SPEC #: [id number] RECD: 08/22/25 16:04 STATUS: ENT REQ #: [id number] ALEKS: 08/22/25 00:[address]: Yuliya Ramirez DEPT: [facility] Cytology RECD BY: Kristin Mcgraw MLT, ([facility]) Tissues: A - Pap Smear Procedures: Pap Smear
--- OUTSIDE RECORDS SUMMARY | 2025-08-22 17:07 | XMS_ITS | Clinical Summary ---
Author Organization [facility] Address [address] [facility] [place] [address] Care Team Providers Care Senior Product Manager Name Role Phone Salvador Hector MD Primary Care Provider [phone] Segun Mccracken MD Unavailable [phone] Fer Jaquez MD Unavailable [phone] Source Comments [facility],non-owned Affiliates and Associated Physician Practices is amultiple site organization consisting of ambulatory clinics and hospital sitesin [place], [place], [place] and [place]. This disclosure is being madepursuant to the Care Everywhere program and may not contain all information available regarding this patient. Last updated 18.[facility] Allergies Active Allergy Reactions Criticality Noted [...] document. Alwaysverify current medications with the patient. atorvastatin (LIPITOR) 40 MG tablet Take 1 Tab by mouth at bedtime 30 Tab 5 07/26/2015 Active clonazePAM (KLONOPIN) 0.5 MG tabletIndicatio ns:Anxiety state 1 tablet 2 times daily as needed for Anxiety 60 tablet 5 07/03/2017 Active DULoxetine (CYMBALTA) 20 MG capsule TAKE 2 CAPSULES( 40 MG) BY MOUTH TWICE DAILY 120 capsule 5 09/03/2017 Active Calcitriol 3 MCG/GMIndicatio ns:Pustulosis palmaris et plantaris Apply to hands and feet BID, 30 DS 100 g 1 05/15/2018 Active fluocinonide (LIDEX) 0.05 % ointmentIndicat ions:Pustulosis palmaris et plantaris Apply to feet and hands twice daily. 30 days supply. 60 g 3 09/04/2018 Active meloxicam (MOBIC) 15 MG tablet Take 1 tablet by mouth once daily 30 tablet 2 09/23/2018 Active amitriptyline (ELAVIL) 25 MG tablet Take by mouth at bedtime 09/18/2018 Active folic acid (FOLVITE) 1 MG tabletIndicatio ns:Pustulosis palmaris et plantaris Take 1 tablet daily [...] 10/24/2010 Chronic fatigue fibromyalgia syndrome 05/17/2009 Immunizations Immunization Administration Dates Next Due INFLUENZA VACCINE, TRIV. [...] = 0.6 oz pur e alcohol) Comments No Sex and Gender Information Value Date Recorded Sex Assigned at Not on file Legal Sex Female 5:15 AM BRANCH OPERATIONS MANAGER Gender Identity Female 08/05/2017 9:52 AM BRANCH OPERATIONS MANAGER Sexual Orientation Not on file Occupation Industry Job Start Date Job End Date Disabled Not on file Not on file Not on file Last Filed Vital Signs Vital Sign Reading Time Taken Comments Blood Pressure 100/70 09/23/2018 10:06 AM BRANCH OPERATIONS MANAGER Pulse 97 09/23/2018 10:06 AM BRANCH OPERATIONS MANAGER Temperature 36.5 C (97.7 F) 07/01/2011 12:39 PM CDT Respiratory Rate 16 09/23/2018 10:06 AM BRANCH OPERATIONS MANAGER Oxygen Saturation 98% 09/23/2018 10:06 AM BRANCH OPERATIONS MANAGER Inhaled Oxygen Concentration - - Weight 76.7 kg (169 lb) 09/23/2018 10:06 AM BRANCH OPERATIONS MANAGER Height 167.6 cm (5' 6) 09/23/2018 10:06 AM BRANCH OPERATIONS MANAGER Body Mass Index 27.28 09/23/2018 10:06 AM BRANCH OPERATIONS MANAGER Plan of Treatment Health Maintenance Due Date Last Done Comments COLOGUARD (AGES 45-75) - COLON CA SCREENING 1970 COLON MONITORING 1970 COLONOSCOPY - COLON CA SCREENING 1968 CT COLONOGRAPHY - COLON CA SCREENING 1970 Colorectal Cancer Screening 1970 FIT - COLON CA SCREENING 1970 FLEX SIG - COLON CA SCREENING 1970 HEPATITIS B VACCINE (1 of 3 - 19+ 3-dose series) 12/08/1987 MAMMOGRAM 02/20/2018 02/21/2016, 08/03/2013, 04/02/2012, Additional history exists PNEUMOCOCCAL VACCINE 50+ (2 of 2 - PCV) 2018 07/02/2008 ZOSTER VACCINE (1 of 2) 2018 SCREENING FOR DIABETES 09/09/2021 9, 05/05/2014, 04/07/2013, Additional history exists DTAP/TDAP/TD VACCINES (2 - Td or Tdap) 07/04/2022 07/04/2012 DEPRESSION SCREENING 09/01/2024 COVID-19 VACCINE ( season) 2025 INFLUENZA VACCINE (#1) 2025 8, 05/05/2018, 09/29/2017, Additional history exists HIV SCREENING Completed 04/01/2012, 12/28/2010 Cervical Cancer Screening Discontinued PAP SMEAR Discontinued 06/10/2012, 06/05/2011 HEPATITIS C SCREENING Completed 09/09/2018 HIB VACCINE Aged Out No longer eligi ble based on patient's age to complete this topic HPV VACCINE Aged Out No longer eligi ble based on patient's age to complete this topic MENINGOCOCCAL (Group B) VACCINE SHARED DECISION-MAKING Aged Out No longer eligible based on patient's age to complete this topic MENINGOCOCCAL GROUPS A/C/Y/W VACCINE Aged Out No longer eligible based on patient's age to complete this topic PAP with HPV Discontinued Goals Goal Patient Goal Type Associated Problems Recent Progress Patient-Stated? Author Quit smoking / using tobacco Lifestyle On track( 015 1:34 PM CDT) No Radha Munroe MA Procedures Procedure Name Priority Date/Time Associated Diagnosis Comments COMPREHENSIVE METABOLIC PANEL 09/09/2018 2:31 PM BRANCH OPERATIONS MANAGER HEPATITIS C AB W/RFLX TO HCV RNA QN PCR Routine 09/09/2018 2:31 PM BRANCH OPERATIONS MANAGER Pustulosis palmaris et plantaris Encounter for long-term [...] HCV RNA QN PCR (09/09/2018 2:31 PM BRANCH OPERATIONS MANAGER) Hepatitis C Antibody NON-REACTI VE NON-REACT TIN [facility] Signal to Cut-Off 0.01 <1.00 [facility] Comment: REPORT COMMENT: FASTING:NO Test Performed at: [facility] [address] [place] [address] GREG JACK DO,MPH Blood BLOOD SPECIMEN / Unknown 09/09/2018 2:31 PM BRANCH OPERATIONS MANAGER 09/09/2018 2:32 PM BRANCH OPERATIONS MANAGER Mark Vogt MD LAB - CHEMISTRY ORDERABLES Davina l Result [facility] [address] [place] [address] * COMPREHENSIVE METABOLIC PANEL (09/09/2018 2:31 PM BRANCH OPERATIONS MANAGER) Glucose 73 65 - 139 mg/dL [facility] [...] 29 U/L [facility] Comment: Test Performed at: [facility] [address] [place] [address] GREG JACK DO,MPH 09/09/2018 2:31 PM BRANCH OPERATIONS MANAGER 09/09/2018 2:32 PM BRANCH OPERATIONS MANAGER us Mark Vogt MD LAB - CHEMISTRY ORDERABLES Davina l Result [facility] [address] [place] [id number] * MAMMOGRAPHY ORDER (02/21/2016) Anatomical Region Laterality Modality Other Salvador Hector MD MAMMO ORDERABLES Final Re sult * (ABNORMAL) PAP IG RFLX HPV ASCU RFLX 16/18 (PO REF LAB) (06/10/2012 1:03 PM CDT) Diagnosis (A) [facility] INSURANCE BILL Comment: EPITHELIAL CELL ABNORMALITY. LOW-GRADE SQUAMOUS INTRAEPITHELIAL LESION (LGSIL); MILD DYSPLASIA IS PRESENT. Recommendation (A) [facility] INSURANCE BILL Comment:Suggest follow up as clinically appropriate. Specimen Adequacy [facility] INSURANCE BILL Comment: Satisfactory for evaluation. Endocervical and/or squamous metaplastic cells (endocervical component) are present. Clinician Provided ICD9 [facility] INSURANCE BILL Comment: V72.31 ; Routine gynecological examination 626.4 ; Irregular menstrual cycle Performed by [facility] INSURANCE BILL Comment:Adamaris Martínez, Cyto technologist (ASCP) Electronically Signed by [facility] INSURANCE BILL Comment:Sandy Baltazar MD, Pathologist Comment . [facility] INSURANCE BILL Pathologist Provided ICD9 [facility] INSURANCE BILL Comment:795.03 Note [facility] INSURANCE BILL Comment: The Pap smear is a screening test designed to aid in the detection of premalignant and malignant conditions of the uterine cervix. It is not a diagnostic procedure and should not be used as the sole means of detecting cervical cancer. Both false-positive and false-negative reports do occur. . [facility] CPT Code Automation [facility] INSURANCE BILL Comment: This liquid based ThinPrep(R) pap test was screened with the use of an image guided system. Note [facility] INSURANCE BILL Comment: The HPV DNA reflex [...] CYTYC Thin Prep Vial Resulting Agency Comment [address] [id number] [place] Mark Ayoub MD LAB - PATHOLOGY/CYTOLOGY ORD ERABLES Final Result [facility] INSURANCE BILL [address] [place] [address] * HIV-1 HIV-2 ANTIBODY (04/01/2012 4:52 PM CDT) HIV-1/HIV-2 Nonreactive Nonreactiv [facility] BLOOD SPECIMEN / Unknown 04/01/2012 4:52 PM CDT 04/01/2012 4:52 PM CDT us Salvador Hector MD LAB - CHEMISTRY ORDERABLE S Final Result [facility] [address] [place] [address] from Last 3 Months or Most Recently Relevant to Health Maintenance Insurance [employer] Care Teams Senior Product Manager Relationship Specialty Start Date End Date Salvador Hector MD [address] [facility] [address] [place] [id number] PCP - General 05/17/09 Segun Mccracken MD [address] [place] [address] Infectious Disease 11/24/13 Fer Jaquez MD [address] [place] [address] [facility] 01/12/16
--- OUTSIDE RECORDS SUMMARY | 2025-08-22 17:07 | XMS_ITS | Clinical Summary ---
Author Organization [facility] Address [address] [place] [address] Care Team Providers Care Sales Strategy Manager Name Role Phone Salvador Hector MD [...] nortriptyline (PAMELOR) 25 mg capsuleIndicati ons:Small fiber neuropathy,Fibr omyalgia TAKE 3 CAPSULES BY MOUTH NIGHTLY. 270 capsule 3 12/09/2024 Active rosuvastatin (CRESTOR) 20 mg tablet TAKE 1 TABLET BY MOUTH EVERY DAY 90 tablet 3 03/10/2025 Active clonazePAM (KlonoPIN) 0.5 mg tablet Take 1 tablet (0.5 mg total) by mouth 2 (two) times a day as needed for anxiety 60 tablet 5 04/15/2025 Active escitalopram (LEXAPRO) 20 mg tablet Take 1 tablet (20 mg total) by mouth daily 90 tablet 3 04/21/2025 Active Active Problems Problem Noted Date Diagnosed Date Anxiety 06/17/2022 Screen for colon cancer 05/03/2020 Overview (05/03/2020): Added automatically from request for surgery [id number] Pustulosis palmaris et plantaris 06/15/2018 Small fiber [...] fatigue syndrome 04/11/2015 Overview (12/06/2016): Chronic fatigue Resolved Problems Problem Noted Date Diagnosed Date Resolved Date Colon cancer screening 05/04/202004/21 Overview (05/04/2020): Added automatically from request for surgery [id number] Encounters Date Type Department Care Team Description 08/18/2025 9:30 AM CHANGE ANALYST Office Visit [facility] at [place] [id number] [address] Salvador Hector MD Pure hypercholesterolemia (Primary Dx); Fibromyalgia; Neck pain; Bilateral hip pain from Last 3 Months Immunizations Immunization Administration Dates Next Due COVID-19 MRNA (MODERNA) .5 M L (50 MCG) VACCINE (12 YEARS AND UP) 05/30/2023 DTP 12/29/1970, 9,03/01/1969,01/18 Influenza, Quadrivalent, Spl it, Intramuscular 06/17/2022,06/09/2019 Influenza, Quadrivalent, Spl it, Preservative Free, Intradermal 05/24/2016,06/14/2015 Influenza, Quadrivalent, Spl it, Preservative Free, Intramuscular 05/30/2023,06/17/2022,05/03/2020 Influenza, Trivalent, Cell Culture-based MDCK, Preservative Free, Antibiotic Free, Intramuscular 06/06/2024 Influenza, Trivalent, High D ose, Split, Preservative Free, Intramuscular 06/01/2014 Influenza, Trivalent, Preser vative Free, Intramuscular 08/17/2025,07/24/2021 Influenza, Trivalent, Split, Preservative Free, Intradermal 06/01/2014 [...] Comments: RRG 02/23/2016 - Small fiber neuropathy Small fib er neuropathy; Comments: RRG 02/23/2016 - Fibrositis Fibromyalgia; Co mments: RRG 02/23/2016 - Hx Other Medical Abnormal Pap - LSIL; Comments: RED 11/15/2016 - Psoriasis Anxiety Autoimmune disease October 2015 Family History Medical History Relation Name Comments Alcohol abuse Brother 1 Derik Thapa Jr Cancer Brother 2 Tono Elier Coronary artery disease Father Derik Porteruer Wilson nary artery disease; /Coronary artery disease; Heart disease Father Derik Porteruer Hyperlipidemia Father Derik Thapa High choleste rol; Hypertension Father Derik Thapa Hypertension; Colon cancer Father's Brother 2 Other Father's Brother 3 Alive and well; Coronary artery disease Father's Brother 4 Coronary artery disease; Diabetes Father's Brother 5 Abdoulaye Thapa Breast cancer Father's Sister Cancer, hansel ast; Cancer Maternal Grandfather Macy Blakely Arthritis Maternal Grandmother Sandy Blakely Cancer Maternal Grandmother Sandy Blakely Coronary artery disease Maternal Grandmother Sandy carmen Coronary artery disease; Stroke Maternal Grandmother Sandy Blakely Uterine cancer Maternal Grandmother Sandy Blakely Canc [...] Name Status Comments Brother 1 Derik Thapa Jr Alive Brother 2 Tono Porteruer Alive Father Derik Elier Alive Father's Brother 1 Alive Father's Brother [...] points, staff should administer the PHQ-9) 0 04/21/2025 Comments Unknown Sex and Gender Information Value Date Recorded Sex Assigned at Not on file Legal Sex Female 3:46 AM CHANGE ANALYST Gender Identity Female 05/08/2021 10:15 AM CDT Sexual Orientation Straight 06/19/2019 9: 52 AM CDT Occupation Industry Job Start Date Job End Date disabled Not on file Not on file Not on file Last Filed Vital Signs Vital Sign Reading Time Taken Comments Blood Pressure 102/60 08/18/2025 9:15 AM CHANGE ANALYST Pulse 84 08/18/2025 9:15 AM CHANGE ANALYST Temperature 36.9 C (98.5 F) 06/14/2020 12:04 PM CDT Respiratory Rate 16 06/17/2022 11:30 AM CDT Oxygen Saturation 95% 08/18/2025 9:15 AM CHANGE ANALYST Inhaled Oxygen Concentration - - Weight 78.9 kg (174 lb) 08/18/2025 9:15 AM CHANGE ANALYST Height 167.6 cm (5' 6) 08/18/2025 9:15 AM CHANGE ANALYST Body Mass Index 28.08 08/18/2025 9:15 AM CHANGE ANALYST Plan of Treatment Health Maintenance Due Date Last Done Comments Cervical Cancer Screening 11/04/2017 11/04/2016, 01/2017 Zoster Vaccine (1 of 2) 2018 Covid-19 Vaccine (2024-2 6 season) 2025 06/06/2024, 05/30/2023, 06/27/2022, Additional history exists Breast Cancer Screening-Mammogram 10/18/2025 10/18/2024, 11/02/2020, 09/27/2016, Additional history exists Depression Screening 04/21/2026 04/21/2025, 06/27/2023, 06/17/2022, Additional history exists Regular Well Visit/Exam 18-64 04/21/2026, 06/27/2023, 06/17/2022, Additional history exists Colon Cancer Screening-Colonoscopy 10/27/2027 10/27/2024, 06/14/2020 DTaP/Tdap/Td Vaccine (8 - Td or Tdap) 12/29/2029 12/30/2019, 07/04/2012, 05/17/1977, Additional history exists Colon Cancer Screening-CT Colonography Discontinued 06/14/2020 Colon Cancer Screening-DNA Stool Discontinued 06/14/20 20 Colon Cancer Screening-FIT Discontinued 06/14/2020 Colon Cancer Screening-Sigmoidoscopy Discontinued 06/14/2020 Pneumococcal vaccine <65 Completed 06/27/2023, 09/2007 Hepatitis B Screening Completed 04/21/2025 Hepatitis C Screening Completed 04/21/2025 Influenza Vaccine Completed 08/17/2025, , 05/30/2023, Additional history exists Procedures Procedure Name Priority Date/Time Associated Diagnosis Comments HEPATITIS C ANTIBODY Routine 04/21/2025 7:55 PM CDT Need for hepatitis C screening test SCREENING MAMMOGRAM BILATERAL W TEJINDER Schedule Routine, Read Routine (OP Routine) 11/02/2020 1:31 PM CHANGE ANALYST Screening for breast cancer COLONOSCOPY 06/14/2020 12:17 PM CDT IMAGING PAP AND HPV MRNA E6/E7 Routine 11/04/2016 1:39 PM CHANGE ANALYST from Last 3 Months or Most Recently Relevant to Health Maintenance Results * Hepatitis C antibody Blood (04/21/2025 7:55 PM CDT) Hep C Ab Nonreactive Nonreactive Comment: Interpretive Data Nonreactive: Antibodies to HCV not detected. Does NOT exclude the possibility of recent exposure to HCV. Equivocal: Equivocal for HCV antibodies. Supplemental molecular testing will be automatically performed to determine infection status in accordance with current CDC screening recommendations. Reactive: Positive for HCV antibodies. This may represent current or past HCV infection. Supplemental molecular testing will be automatically performed to determine current infection status in accordance with current CDC screening recommendations. Interpretive data was last revised on 2019. Blood 04/21/2025 7:55 PM CDT 04/21/2025 7:55 PM CDT us Salvador Hector MD LAB MICROBIOLOGY - [facility] ORDERABLES Final Result [facility] [address] Department [place] [address] * Screening Mammogram Bilateral W Tejinder (11/02/2020 1:31 PM CHANGE ANALYST) Anatomical Region Laterality Modality Breast Bilateral Mammography Narrative 11/03/2020 11:14 AM CHANGE ANALYST Mammogram Technique: Bilateral Digital Breast Tomosynthesis, Bilateral C-view 2D Screening mammogram. Views obtained: bilateral craniocaudal and bilateral mediolateral oblique. Computer Aided Detection was performed. Mammogram Findings: The present examination has been compared to prior imaging studies performed at [facility]. [facility] on 12/28/2010, 04/02/2012 and 04/07/2013. The breasts [...] compared to prior imaging studies performed at [facility] on 12/28/2010, 04/02/2012 and 04/07/2013. The breasts [...] Date: 06/14/2020 12:17PM Admit Type: Outpatient Room: [facility] Date of : 1970 Instrument Name: [id number] [...] bowel preparation was evaluated using the BBPS ([place] Bowel Preparation Scale) with scores of: Right [...] and HPV mRNA E6/E7 (11/04/2016 1:39 PM CHANGE ANALYST) SOURCE: SEE NOTE [facility] HISTORICAL RESULTS Comment:Cervix, [...] has been evaluated with computer assisted technology. Preparation Room Worker SEE NOTE [facility] HISTORICAL RESULTS Comment: ABC, CT(ASCP) CT screening location: [place] [address] [place] [id number] Test performed at [employer]-[address] [address] Director: CONCHA SELBY MD 11/04/2016 1:39 PM CHANGE ANALYST June Loaiza MD LAB PATHOLOGY ORDERAB LES Final Result [facility] HISTORICAL RESULTS from Last 3 Months or Most Recently Relevant to Health Maintenance [facility] [id number] [employer] OPEN ACCESS [facility] [id number] Advance Directives For more information, please contact: [phone] * Full Code (Latest Code Status on File) Date Activated Date Inactivated Comments 06/14/2020 11:48 AM 06/14/2020 6:08 PM Care Teams Sales Strategy Manager Relationship Specialty Start Date End Date Salvador Hector MD [address] [address] PCP - General 11/29/16 Christian Miranda MD [address] [address] Referring Physician Neuromuscular Medicine 04/22/18
--- OUTSIDE RECORDS SUMMARY | 2025-08-22 17:07 | XMS_ITS | Encounter Summary ---
Author Organization [facility] Address [address] [place] [address] Care Team Providers Care Liquor Bridge Operator Helper Name Role Phone Salvador Hector MD Primary Care Provider [phone] Segun Mccracken MD Unavailable [phone] Fer Jaquez MD Unavailable [phone] Encounter Details Date Type Department Care Team (Late st Contact Info) Description 06/10/2012 [facility] Out[facility] [address] [place] [address] [address] [place] [address] Pedrito Thomson MD [address] [place] [address] [facility] [address] [place] [address] Social History Tobacco Use Types Packs/Day Years Used Date Smoking Tobacco: Every Day Cigarettes 0.5 Last attempted to quit: 03/16/2009 Alcohol Use Standard Drinks/Week Comments No 0 (1 standard drink = 0.6 oz pur e alcohol) Comments No Sex and Gender Information Value Date Recorded Sex Assigned at Not on file Legal Sex Female 5:15 AM RN CLINICAL COORDINATOR Gender Identity Female 08/05/2017 9:52 AM RN CLINICAL COORDINATOR Sexual Orientation Not on file documented as of this encounter Plan of Treatment Not on file documented as of this encounter Visit Diagnoses Not on filedocumented in this encounter Care Teams Liquor Bridge Operator Helper Relationship Specialty Start Date End Date Salvador Hector MD [address] [facility] [address] [place] [address] PCP - General 05/17/09 Segun Mccracken MD [address] [facility] [address] [place] [address] Infectious Disease 11/24/13 Fer Jaquez MD [address] [employer] [facility] [address] [place] [address] Cardiology 01/12/16 documented as of this encounter
--- OUTSIDE RECORDS SUMMARY | 2025-08-22 17:07 | XMS_ITS | Clinical Summary ---
Author Organization [facility] Address [facility] [place] [address] Care Team Providers Care Commercial Mortgage Broker Name Role Phone Unavailable Primary Care Provider Unavailabl e Social History Tobacco Use Types Packs/Day Years Used Date Smoking Tobacco: Never Assessed Comments Unknown Sex and Gender Information Value Date Recorded Sex Assigned at Not on file Legal Sex Female 5:44 PM MOVERS Gender Identity Not on file Sexual Orientation [...] Screening with HPV 1998 Mammogram Screening 2008 Pneumococcal Vaccine: 50+ Ye ars (1 of 1 - PCV) 2018 Zoster Vaccines (1 of 2) 2018 COVID-19 Vaccine (2024-2 6 season) 2025 Influenza Adult (#1) 2025 Hepatitis A Vaccines Aged Out No long er eligible based on patient's age to complete this topic Meningococcal B Vaccine Aged Out No l onger eligible based on patient's age to complete this topic Meningococcal Vaccine Aged Out No hayley oleksandr eligible based on patient's age to complete this topic RSV Immunizations Under 20 Months Aged Out No longer eligible based on patient's age to complete this topic
--- OUTSIDE RECORDS SUMMARY | 2025-08-22 17:07 | XMS_ITS | Clinical Summary ---
Author Organization [facility] Address [address] [place] [address] Phone Care Team Providers Care Manager Hotel Name Role Phone Salvador Hector MD Primary [...] 3:00 PM CDT Height 167.6 cm (5' 6) 04/23/2017 3:00 PM CDT Body Mass Index 24.86 04/23/2017 3:00 PM CDT Plan of Treatment Health Maintenance Due Date Last Done Comments Hepatitis C Virus (HCV) Screening 1970 TdaP Immunization 1970 Hepatitis B Immunization (1 of 3 - 19+ 3-dose series) 12/08/1987 Pap Smear 1989 Cervical Cancer Screening (CCS) 1998 HPV/Cotest 1998 Cologuard 2013 Colonoscopy 2013 Colorectal Cancer Screening 2013 Immunochemical Fecal Occult Blood 2013 Pneumococcal Immunization (5 0+ years) (1 of 1 - PCV) 2018 Zoster Immunization (1 of 2) 2018 Influenza Immunization (#1) 2025 SARS-COV-2 Immunization (1 - season) 2025 Respiratory Syncytial Virus (RSV) Immunization (Adult) (1 - 1-dose 75+ series) 12/08/2043 Human Papillomavirus (HPV) Immunization (No Doses Required) Completed Meningococcal Immunization (ACWY) Aged Out No longer eligible based on patient's age to complete this topic Rotavirus Immunization Aged Out No lo nger eligible based on patient's age to complete this topic [facility] Care Teams Manager Hotel Relationship Specialty Start Date End Date Salvador Hector MD PCP - General Internal Medicine 04/24/17
== END 2025-08-22 15:51 | disposition home or self-care (01) ==
LOC: CHSLAB 15:51
PROVIDERS: PCP Nurse Practitioner Family; Visit Provider Nurse Practitioner Family
DX: Z11.3 Encounter for screening for infections with a predominantly sexual mode of transmission (principal); Z11.8 Encounter for screening for other infectious and parasitic diseases; Z11.51 Encounter for screening for human papillomavirus (HPV); Z12.4 Encounter for screening for malignant neoplasm of cervix
CPT/HCPCS: 87491; 87591; 87624; 88175; G0145